=== PATIENT | female | born 1975 | race Caucasian/White ===

== ENCOUNTER → 2017-05-01 12:36 | Outpatient (CLI) | payer OTHER, SELFPAY ==
--- NOTE | 2017-05-01 12:39 | HPBI_ITS ---
MAMMOGRAPHY - BILATERAL SCREENING REASON FOR EXAM: Female, 42 years old. Routine annual screening examination. PERTINENT HISTORY: Non-contributory. TECHNIQUE: Digital bilateral breast jimbo (3D mammographic acquisition) in the CC and MLO projections. 2-D mediolateral oblique (MLO) and craniocaudad (CC) views of both breasts were obtained. CAD: Full Field Digital Mammography with Computer Added Detection was performed. COMPARISON: Comparison is made with prior outside examination dated February 03, 2016. FINDINGS: Breast Composition: The breasts are extremely dense, which lowers the sensitivity of mammography. There are no dominant masses or suspicious calcifications. No other significant abnormalities are identified. There has been no significant change since the prior study. HPBI/SCREENING MAMM (CAD), BILAT IMPRESSION: Stable bilateral screening mammogram. Yearly follow-up mammogram recommended. (A) ASSESSMENT CATEGORY: BIRADS Category 1: Negative. A letter regarding these results will be sent to the patient by the facility within 30 days. Approximately 10% of breast cancers are not detected by mammography. A normal mammogram should not delay biopsy of a clinically suspicious abnormality. [id number] Electronically Signed: Esteban Ashley MD at 13:43 EST Tel [phone], Service support ,
== END ==
PROVIDERS: Family Provider Internal Medicine; PCP Internal Medicine; Visit Provider Obstetrics & Gynecology
DX: Z12.31 Encounter for screening mammogram for malignant neoplasm of breast (principal)
CPT/HCPCS: 77063; 77067

== ENCOUNTER → 2017-06-20 14:58 | Outpatient (CLI) | payer OTHER, SELFPAY ==
--- NOTE | 2017-06-20 15:02 | US_ITS ---
STUDY: THYROID ULTRASOUND REASON FOR EXAM: Female, 42 years old. Thyromegaly. TECHNIQUE: Ultrasound evaluation of the thyroid was performed with real-time and static livingston-scale imaging. COMPARISON: Thyroid ultrasound November 01, 2015. FINDINGS: RIGHT LOBE: The right lobe of the thyroid gland measures 5.3 x 1.6 x 1.3 cm. There is a homogeneous echotexture. Again seen is a well-defined 7 x 7 x 5 mm hypoechoic cyst at the anterior midpole. LEFT LOBE: The left lobe of the thyroid gland measures 4.8 x 1.6 x 1.4 cm. There is a homogeneous echotexture. Again seen is a well-defined 9 x 6 x 6 mm hypoechoic cystic lesion with a focal eccentric calcification at the anterior upper pole. ISTHMUS: The isthmus measures 3.0 mm. The regional lymph nodes are normal. US/Thyroid IMPRESSION: Normal size thyroid gland with stable bilateral cysts, as described. Electronically Signed: William Coyle MD at 20:01 EDT , Service support ,
== END ==
PROVIDERS: Family Provider Internal Medicine; PCP Internal Medicine; Visit Provider Internal Medicine
DX: E01.0 Iodine-deficiency related diffuse (endemic) goiter (principal)
CPT/HCPCS: 76536

== ENCOUNTER → 2018-04-05 16:15 | Outpatient (CLI) | payer OTHER, SELFPAY ==
[2018-04-05 16:26] LABS: Absolute Lymphocyte Count 2.49 X10^3/ul (0.83-4.51); Absolute Neutrophil Count 3.1 X10^3/uL (2.0-7.7); Basophil# 0.01 X10^3/uL; Basophil% 0.2 % (0-1); Eosinophil# 0.06 X10^3/uL; Hematocrit 38.2 % (37-47); Hemoglobin 13.2 g/dl (12.0-15.0); Lymphocyte # 2.49 X10^3/ul (4.0); Lymphocyte % 41.3 % (19-41); Mean Corp Hgb Conc 34.6 g/gl (32-36); Mean Corpuscular Hgb 31.7 pg (27.0-32.0); Mean Corpuscular Volume 91.6 fL (81-99); Mean Platelet Vol. 9.7 fl (6.2-12.0); Monocyte# 0.41 X10^3/uL; Monocyte% 6.8 % (0-10); Neutrophil # 3.05 X10^3/uL (2.7-7.7); Neutrophil % 50.5 % (47-70); Platelet Count 338 K/mm3 (150-450); RBC Distribution Width CV 12.8 % (11.6-14.6); RBC Distribution Width SD 42.4 fl (35.1-43.9); Red Blood Count 4.17 M/mm3 (4.2-5.4)
[2018-04-05 16:27] LABS: POSITIVE COUNT NO; POSITIVE DIFFERENTIAL NO; POSITIVE MORPHOLOGY NO
[2018-04-05 16:46] LABS: D-Dimer Quantitative (DVT/PE) 1.09 FEU/ug/m (0.27-0.49)
[2018-04-05 16:47] LABS: ALB/GLOB Ratio 1.4 RATIO (0.9-2.4); AST(SGOT) 29 U/L (15-37); Alanine Aminotransfer ALT/SGPT 27 U/L (13-56); Albumin, Serum 4.2 g/dL (3.2-5.0); Alkaline Phosphatase 73 U/L (45-117); Anion Gap 8 (5-15); BUN 14 mg/dL (7-18); BUN/Creat Ratio 18.2 RATIO (10-20); Calcium,Total 8.8 mg/dL (8.5-10.1); Chloride 105 mmol/L (98-107); Creatinine, Serum 0.77 mg/dL (0.55-1.02); EST Glomerular Filtration Rate 88 mL/min (>60); Est Glom Filt Rate - Afr Amer 106 mL/min (>60); Globulin 3.1 g/dL (2.2-4.2); Glucose 86 mg/dL (74-106); Protein, Total 7.3 g/dL (6.4-8.2); Sodium Level 140 mmol/L (136-145); Thyroid Stim Hormone (TSH) 1.21 uIU/mL (0.358-3.74)
--- OUTSIDE RECORDS SUMMARY | 2018-06-10 07:32 | XMS RPT_ITS | Continuity of Care Document ---
:1975 Author Organization [facility] Address [address] [place] [address] Phone Care Team Providers Name Role Phone Nette Snow DO Unavailable JesusRosana yin Unavailable Unavailable Unavailable Unavailable Problems Name Dates Details Abnormal blood chemistry (R79.9, 790.6) Comments: hypercalcemia Status: Active Acute pain of right knee (M25.561, 719.46) Status: Active Acute sinusitis (J01.90, 461.9) Status: Active Allergic rhinitis (J30.9, 477.9) Status: Active Anxiety (F41.9, 300.00) Status: Active BMI 29.0-29.9,adult (Z68.29, V85.25) Status: Active Section Status: Active Chest congestion (R09.89, 786.9) Status: Active Chest congestion (R09.89, 786.9) Status: Active Cholecystectomy Comments: 01-08-09 Status: Active 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.4) Status: Active Deliveries (Parity) Comments: twins Status: Active Diarrhea (R19.7, 787.91) Status: Active Eustachian tube dysfunction (H69.80, 381.81) Status: Active FAMILY HISTORY OF DIABETES MELLITUS (Z83.3, V18.0) Status: Active Family history of ischemic heart disease (Z82.49, V17.3) Status: Active Gastroenteritis (009.0) (Renamed from Infectious gastroenteritis) (A09, 009.0) Status: Active Gastroesophageal reflux disease without esophagitis (K21.9, 530.81) Comments: chronic stable-continue present regimen Status: Active Headache (R51, 784.0) Status: Active Hyperlipidemia (E78.5, 272.4) Status: Active Impaired fasting glucose (R73.01, 790.21) Status: Active [facility] EX[facility] Status: Active [facility] EX[facility] Status: Active Need for prophylactic vaccination and inoculation against influenza (Z23, V04.81) Status: Active Non-smoker (Z78.9, V49.89) Status: Active Other and unspecified coagulation defects (D68.9, 286.9) Status: Active Physical exam, routine (Renamed from Encounter for routine history and physical examination) (Z00.00, V70.0) Status: Active Post-nasal drainage (R09.82, 473.9) Status: Active Pregnancies () Comments: 1 Status: Active Prothrombin gene mutation (D68.59, 289.81) Status: Active SCREENING Status: Active Shortness of breath (R06.02, 786.05) Comments: ended up ddimer was positive so had cta of chest pe neg Status: Active Sleep disorder (G47.9, 780.50) Status: Active SOB (shortness of breath) (R06.02, 786.05) Status: Active Thrombophilia Status: Active 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, 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 Tonsillectomy Status: Active Medications Name Dates Details Fluticasone Propionate 50 MCG/ACT Nasal Suspension 2 (two) Puff daily for 0 days Quantity: 1 {Inhaler} Refills: 5 Ordered:31-Dec-2017 Fast DORadhaa AFNette hay DO A Start : 31-Dec-2017 Active PredniSONE 10 MG Oral Tablet 3 (three) Tablet in am for 3 days 2 in am for 3 days 1in am for 3 days for 0 days Quantity: 18 {Tablet} Refills: 0 Ordered:05-Apr-2018 Fast DO, Nette AFast DORadhaa A Start : 05-Apr-2018 Active ANTIVERT, 12.5MG (Oral Tablet) 1 Tablet q8hrs prn for 0 days Quantity: 30 {Tablet} Refills: 0 Ordered:28-Apr-2011 Kennedi Jim Start : 08-Jul-2010 End : 28-Apr-2011 Inactive Augmentin 875-125 MG Oral Tablet 1 Tablet BID x 14 days for 0 days Quantity: 28 {Tablet} Refills: 0 Ordered:29-Aug-2017 Rosana Beasley Start : 20-Aug-2017 End : 29-Aug-2017 Inactive Comments:Take with food Belsomra 15 MG Oral Tablet 1 (one) Tablet qd for 0 days Quantity: 30 {Tablet} Refills: 3 Ordered:29-Oct-2015 Rylee Díaz Start : 17-Sep-2015 End : 29-Oct-2015 Inactive BIAXIN XL, 500MG (Oral Tablet Extended Release 24 Hour) 2 (two) Tablet ER 24HR qam with food for 0 days Quantity: 20 {Tablet_ER_24HR} Refills: 0 Ordered:05-Mar-2012 MEAGHAN Kapoor Start : 09-Jan-2012 End : 05-Mar-2012 Inactive CHERATUSSIN AC, 100-10MG/5ML (Oral Syrup) 10 cc Syrup qhs prn for 0 days Quantity: 120 {Milliliter} Refills: 0 Ordered:05-Mar-2012 MEAGHAN Kapoor Start : 09-Jan-2012 End : 05-Mar-2012 Inactive Comments:one hundred twenty CYMBALTA, 30MG (Oral Capsule Delayed Release Particles) [address] Part qd for 0 days Quantity: 30 {Capsule_DR_Part} Refills: 3 Ordered:28-Apr-2011 Kennedi Jim Start : 11-Oct-2010 End : 28-Apr-2011 Inactive DIFLUCAN, 100MG (Oral Tablet) 1 Tablet qd x 1 for 0 days Quantity: 1 {Tablet} Refills: 0 Ordered:06-Jul-2011 MEAGHAN Kapoor Start : 28-Apr-2011 End : 06-Jul-2011 Inactive DULoxetine HCl 30 MG Oral Capsule Delayed Release Particles 1 (one) Capsule DR Part Capsule DR Part qd for 0 days Quantity: 30 {Capsule} Refills: 3 Ordered:29-Oct-2015 Rylee Díaz Start : 04-Jun-2015 End : 29-Oct-2015 Inactive Fexofenadine HCl 60 MG Oral Tablet 1 (one) Tablet Tablet bid for 0 days Quantity: 60 {Tablet} Refills: 0 Ordered:29-Aug-2017 Rosana Beasley Start : 29-Jul-2013 End : 29-Aug-2017 Inactive FLEXERIL, 10MG (Oral Tablet) 1 Tablet q 8 hours prn for 0 days Quantity: 30 {Tablet} Refills: 0 Ordered:05-Mar-2012 MEAGHAN Kapoor Start : 06-Jul-2011 End : 05-Mar-2012 Inactive LOVENOX, 40MG/0.4ML (Subcutaneous Solution) 1 Solution QD for 0 days Quantity: 6 {Solution} Refills: 0 Ordered:29-Jul-2013 Shameka Cooper LPN Start : 10-Sep-2012 End : 29-Jul-2013 Inactive PEPCID, 20MG (Oral Tablet) 1 (one) Tablet qhs / HS for 0 days Quantity: 30 {Tablet} Refills: 3 Ordered:08-Jul-2010 Shameka Cooper LPN Start : 25-Aug-2008 End : 08-Jul-2010 Inactive PREVACID 24HR, 15MG (Oral Capsule Delayed Release) 1 cap prn (15 MG) Inactive Xarelto 20 MG Oral Tablet 1 (one) Tablet as we discussed for 0 days Quantity: 20 {Tablet} Refills: 0 Ordered:05-Apr-2018 Rosana Beasley Start : 04-Jun-2017 End : 05-Apr-2018 Inactive ZEGERID, 40-1100MG (Oral Capsule) Capsule QD for 0 days Quantity: 30 {Capsule} Refills: 6 Ordered:08-Jul-2010 Shameka Cooper LPN Start : 25-Aug-2008 End : 08-Jul-2010 Inactive ZETONNA, 37MCG/ACT (Nasal Aerosol Solution) 1 Aerosol Soln each nostril qd for 0 days Quantity: 1 {Aerosol_Soln} Refills: 0 Ordered:29-Jul-2013 Shameka Cooper LPN Start : 05-Apr-2012 End : 29-Jul-2013 Inactive ZITHROMAX TRI-NATASHA, 500MG (Oral Tablet) uad Tablet as directed for 0 days Quantity: 1 {Packet} Refills: 0 Ordered:28-Apr-2011 Kennedi Jim Start : 17-Nov-2010 End : 28-Apr-2011 Inactive DIFLUCAN, 150MG (Oral Tablet) uad Tablet one today and may repeat in 2 days if needed for 0 days Quantity: 2 {Tablet} Refills: 0 Ordered:04-Jun-2015 Kennedi Jim Start : 29-May-2014 End : 04-Jun-2015 Discontinued FLONASE, 50MCG/ACT (Nasal Suspension) 2 (two) Puff(s) Puff(s) daily for 0 days Quantity: 1 {Cartridge} Refills: 3 Ordered:22-May-2014 Kennedi Jim Start : 29-Jul-2013 End : 22-May-2014 Discontinued MetFORMIN HCl 500 MG Oral Tablet 1 (one) Tablet Tablet qd with largest meal for 0 days Quantity: 30 {Tablet} Refills: 3 Ordered:04-Jun-2017 Karissa Reyez Start : 18-Nov-2015 End : 04-Jun-2017 Discontinued NEXIUM, 20MG (Oral Packet) Packet QD for 0 days Refills: 0 Ordered:06-Jul-2008 Mayuri Esquivel MD Start : 06-Jul-2008 End : 06-Jul-2008 Discontinued Allergies and Adverse Reactions Name Dates Details NKDA (Allergy) Status: Active No Known Drug Allergies (Allergy) Onset: 05-Apr-2018 Status: Active Past Medical History Name Dates Details Abdominal pain, acute, right lower quadrant (R10.31, 789.03) Comments: LMP Oct 3 Status: Resolved as of 22-May-2014 BMI 28.0-28.9,adult (Z68.28, V85.24) Status: Inactive as of 05-Apr-2018 Bronchitis, acute (J20.9, 466.0) Status: Resolved as of 22-May-2014 Valery vaginitis (112.1) Status: Resolved as of 22-May-2014 Cough (R05, 786.2) Status: Resolved as of 22-May-2014 Dehydration (E86.0, 276.51) Status: Resolved as of 22-May-2014 GESTATIONAL DIABETES MELLITUS, NOS (648.80) Status: Resolved as of 22-May-2014 Itchy eyes (H57.8, 379.99) Status: Resolved as of 22-May-2014 Otalgia, unspecified ear (H92.09, 388.70) Status: Resolved as of 22-May-2014 Other specified conditions associated with female genital organs and menstrual cycle (N94.89, 629.89) Status: Inactive as of 28-Sep-2008 Pharyngitis, acute (J02.9, 462) Status: Resolved as of 22-May-2014 Unspecified Diagnosis Status: Inactive as of 22-May-2014 Unspecified Diagnosis Status: Inactive as of 22-May-2014 Unspecified Diagnosis Status: Inactive as of 22-May-2014 Unspecified Diagnosis Status: Inactive as of 22-May-2014 Vertigo (R42, 780.4) Comments: add tilt testhad in past as college student Status: Resolved as of 22-May-2014 Procedures Procedure Dates Details Cholecystectomy Completed Hysterectomy; Abdominal Completed Comments: PARTIAL - VARICOSE VEINS AND ADENOMYOSIS- 2012 Tonsillectomy Completed Date Value Details 05-Apr-2018 CTA Chest W/WO Contrast Result: Comments: See Note; NOTES: [facility] Imaging Services [address] [place] [address] CTA Chest W/WO Contrast MR#: [id number] Acct: [id number] Name: KYLE FARMER Rep #: [id number] : 1975 F 42 From: Amilcar Mann DO PCP: Nette Snow DO Status: REG CLI Study: CTA Chest W/WO Contrast Date of Exam: 04/05/18 Exam# [id number] Ordering Dr: Mayuri Esquivel MD STUDY: CTA CHEST RE ASON FOR EXAM: Female, 42 years old. Shortness of breath, elevated d-dimer RADIATION DOSAGE (If Supplied By Facility): CTDIvol = ( 9.63 ) mGy, DLP = ( 477.07 ) mGycm TECHNIQUE: The examination was per formed with the intravenous administration of 100ML ml of Isovue 370 contrast material. Post-processing of the angiographic images was performed, with multiplanar reformation and 3D reconstruction. Ind ividualized dose optimization techniques were used for this CT. COMPARISON: None. FINDINGS: Normal enhancement of the main pulmonary artery and right and left pulm onary arteries. Normal enhancement of the bilateral peripheral pulmonary arteries. There is no demonstrated pulmonary embolism. Normal thoracic aorta and visualized great vessels. There is no demonstr ated aortic dissection. Normal heart and pericardium. Normal mediastinum. Normal hilar regions. Normal visualized trachea and bronchi. The lungs are well expanded. Normal pulmonary parenchyma. Norm al pleura. Normal chest wall structures. Normal osseous structures. Normal visualized upper abdomen. 0040 CT/CTA Chest W/WO Contrast IMPRESSION: No rmal CTA chest examination, without a demonstrated pulmonary embolism or arterial dissection. Electronically Signed: Amilcar Mann DO at 21:09 EST Tel [phone], Service support , CC: Mayuri Esquivel MD; Nette Snow DO Emt I/99: Signed 05-Apr-2018 CTA Chest W/WO Contrast Result: Comments: See Note; NOTES: [facility] Imaging Services [address] [place] [address] CTA Chest W/WO Contrast MR#: [id number] Acct: [id number] Name: KYLE FARMER Rep #: [id number] : 1975 F 42 From: Amilcar Mann DO PCP: Nette Snow DO Status: REG CLI Study: CTA Chest W/WO Contrast Date of Exam: 04/05/18 Exam# [id number] Ordering Dr: Mayuri Esquivel MD STUDY: CTA CHEST RE ASON FOR EXAM: Female, 42 years old. Shortness of breath, elevated d-dimer RADIATION DOSAGE (If Supplied By Facility): CTDIvol = ( 9.63 ) mGy, DLP = ( 477.07 ) mGycm TECHNIQUE: The examination was per formed with the intravenous administration of 100ML ml of Isovue 370 contrast material. Post-processing of the angiographic images was performed, with multiplanar reformation and 3D reconstruction. Ind ividualized dose optimization techniques were used for this CT. COMPARISON: None. FINDINGS: Normal enhancement of the main pulmonary artery and right and left pulm onary arteries. Normal enhancement of the bilateral peripheral pulmonary arteries. There is no demonstrated pulmonary embolism. Normal thoracic aorta and visualized great vessels. There is no demonstr ated aortic dissection. Normal heart and pericardium. Normal mediastinum. Normal hilar regions. Normal visualized trachea and bronchi. The lungs are well expanded. Normal pulmonary parenchyma. Norm al pleura. Normal chest wall structures. Normal osseous structures. Normal visualized upper abdomen. 0040 CT/CTA Chest W/WO Contrast IMPRESSION: No rmal CTA chest examination, without a demonstrated pulmonary embolism or arterial dissection. Electronically Signed: Amilcar Mann DO at 21:09 EST Tel [phone], Service support , CC: Mayuri Esquivel MD; Nette Snow DO Emt I/99: Signed 20-Jun-2017 Thyroid Result: Comments: See Note; NOTES: [facility] Imaging Services [address] [place] [address] Thyroid MR#: [id number] Acct: [id number] Name: KYLE FARMER Rep #: [id number] : [birth year] F 42 From: Shahid Coyle MD PCP: Nette Snow DO Status: REG CLI Study: Thyroid Date of Exam: 06/20/17 Exam# [id number] Ordering Dr: Nette Snow DO STUDY: THYROID ULTRASOUND REASON FOR EXAM: Fembulmaro jackson, 42 years old. Thyromegaly. TECHNIQUE: Ultrasound evaluation of the thyroid was performed with real-time and static livingston-scale imaging. COMPARISON: Thyroid ultrasound November 01, 2015. FINDINGS: RIGHT LOBE: The right lobe of the thyroid gland measures 5.3 x 1.6 x 1.3 cm. There is a homogeneous echotexture. Again seen is a well-defined 7 x 7 x 5 mm hypoechoic c yst at the anterior midpole. LEFT LOBE: The left lobe of the thyroid gland measures 4.8 x 1.6 x 1.4 cm. There is a homogeneous echotexture. Again seen is a well- defined 9 x 6 x 6 mm hypoechoic cystic l esion with a focal eccentric calcification at the anterior upper pole. ISTHMUS: The isthmus measures 3.0 mm. The regional lymph nodes are normal. 012 US/Thyroid IMPRESSION: Normal size thyroid gland with stable bilateral cysts, as described. Electronically Signed: William Coyle MD at 20:01 EDT , Service support , CC: Nette Snow DO Emt I/99: Signed 01-May-2017 SCREENING MAMM (CAD), BILAT Result: Comments: See Note; NOTES: [facility] Imaging Services [address] [place] [address] SCREENING MAMM (CAD), BILAT MR#: [id number] Acct: [id number] Name: KYLE FARMER Rep #: [id number] : 1975 F 42 From: Esteban Ashley MD PCP: Nette Snow DO Status: REG CLI Study: SCREENING MAMM (CAD), BILAT Date of Exam: 05/01/17 Exam# [id number] Ordering Dr: Zayra Virk MD MAMMOGRAPHY - BILATERAL SCREENING REASON FOR EXAM: Female, 42 years old. Routine annual screening examination. PERTINENT HISTORY: Non-contributory. TECHNIQUE: Digital bilateral breast jimbo (3D m ammographic acquisition) in the CC and MLO projections. 2-D mediolateral oblique (MLO) and craniocaudad (CC) views of both breasts were obtained. CAD: Full Field Digital Mammography with Computer Added Detection was performed. COMPARISON: Comparison is made with prior outside examination dated February 03, 2016. FINDINGS: Breast Composition: The breasts are extrem edward dense, which lowers the sensitivity of mammography. There are no dominant masses or suspicious calcifications. No other significant abnormalities are identified. There has been no significant mcdonough ge since the prior study. 0025 HPBI/SCREENING MAMM (CAD), BILAT IMPRESSION: Stable bilateral screening mammogram. Yearly follow-up mammogram recommend ed. (A) ASSESSMENT CATEGORY: BIRADS Category 1: Negative. A letter regarding these results will be sent to the patient by the facility within 30 days. Approximatel y 10% of breast cancers are not detected by mammography. A normal mammogram should not delay biopsy of a clinically suspicious abnormality. [id number] Electronically Signed: Esteban Ashley MD at 13:43 EST Tel [phone], Service support , CC: Nette Snow DO; Zayra Virk MD Emt I/99: Signed 01-Nov-2015 Thyroid Result: Comments: See Note; NOTES: [facility] Imaging Services [address] [place] [address] Verdana 4d Thyroid MR#: [id number] Acct: [id number] Name: KYLE FARMER Rep #: [id number] : 1975 F 40 From: Eduardo Aldana DO PCP: Nette Snow DO Status: REG CLI Study: Thyroid Date of Exam: 11/01/15 Exam# [id number] Ordering Dr: Nette Snow DO STUDY: THYROID ULTRASOUND REASON FOR EXAM: Female, 40 years old. Thyromegaly TECHNIQUE: Ultrasound evaluation of the thyroid was performed with real-time and static livingston-scale imaging. COMPARISON: None. __ FINDINGS: RIGHT LOBE: The right lobe of the thyroid gland measures 4.7 x 1.5 x 1.5 cm. There is a homogeneous echotexture. A single midpole anechoic cyst measuring less than 1 cm. LEFT LOBE: The l eft lobe of the thyroid gland measures 5.3 x 1.6 x 1.6 cm. There is a homogeneous echotexture. Upper pole nodule measuring 8 x 5 x 5 mm which is predominantly cystic. There appears to be a subjacent lym ph node measuring 1.2 x 0.9 x 0.4 cm. ISTHMUS: The isthmus measures 2 mm. The regional lymph nodes are normal. US/Thyroid IMPRESSION: Homogen ous thyroid appearance throughout with normal size. Bilateral subcentimeter hypoechoic cysts. Electronically Signed: Eduardo Aldana DO at 20:22 EDT Tel , Service support [phone], CC: Nette Snow DO Emt I/99: Signed 29-Oct-2015 ELECTROCARDIOGRAM, COMPLETE (ECG) (65100) Comments: ekg showed normal sinus rhythym, normal axis, no acute st/t wave changes- sinus marco Result: [MEASUREMENTS ANALYSIS] Date of Test: 10/29/2015 11:03:47; Heart Rate: 58; IN Interval: 168; QRS: 104; QT Interval: 416; Corrected QT Interval (QTc): 413; P Wave Nottingham: 56; QRS Wave Nottingham: 30; T Wave Nottingham : 26; Blood Pressure: 102/62 [ECG DIAGNOSTIC STATEMENTS] Date of Test: 10/29/2015 11:03:47; Summary: Sinus Bradycardia -RSR(V1) -nondiagnostic. PROBABLY NORMAL Family History Unknown Family Member Name Dates Details Father Comments: Thrombocytophelia, HTN, Hypercholesterolemia, [place] age 49 , in good stable health now- CABG AT 65/ DM Status: Active Maternal Grandfather Comments: Heart/lung dx Status: Active Mother Comments: LIVING AND HTN AND HIGH CHOL AND CAROTID STENOSIS Status: Active Paternal Grandfather Comments: Diabetes Status: Active Social History Name Dates Details Alcohol Use Comments: Occasional alcohol use Status: Active Caffeine Use Comments: 5 coffe, tea, cola QD Status: Active Current Work/Study Status Comments: Full-time Status: Active Living Situation Comments: Lives with spouse Status: Active 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 Status: Active Smoking Status Name Dates Details Never smoker Vital Signs Date Test Result Details [id number] Temperature 98.1 f Comments: Method: Temporal Pulse 72 /min Comments: Pattern: Regular Respiration Rate 16 /min Comments: Pattern: Unlabored O2 SAT 97 % Comments: Room air BP Systolic 108 mm[Hg] Comments: Patient Position: Sitting BP Diastolic 62 mm[Hg] Comments: Patient Position: Sitting Weight 165.375 lb Height 62.75 in Body Mass Index Calculated 29.53 kg/m2 Body Surface Area Calculated 1.78 m2 :23 Temperature 98.2 f Comments: Method: Temporal Pulse 80 /min Comments: Pattern: Regular Respiration Rate 16 /min Comments: Pattern: Unlabored BP Systolic 100 mm[Hg] Comments: Patient Position: Sitting; Cuff Location: Left Arm; Cuff Size: Standard BP Diastolic 60 mm[Hg] Comments: Patient Position: Sitting; Cuff Location: Left Arm; Cuff Size: Standard Weight 165.375 lb Height 62.75 in Body Mass Index Calculated 29.53 kg/m2 Body Surface Area Calculated 1.78 m2 :34 Temperature 98.1 f Comments: Method: Temporal Pulse 70 /min Comments: Pattern: Regular Respiration Rate 16 /min Comments: Pattern: Unlabored O2 SAT 97 % Comments: Room air BP Systolic 115 mm[Hg] Comments: Patient Position: Sitting; Cuff Location: Left Arm; Cuff Size: Standard BP Diastolic 70 mm[Hg] Comments: Patient Position: Sitting; Cuff Location: Left Arm; Cuff Size: Standard Weight 163.375 lb Height 62.75 in Body Mass Index Calculated 29.17 kg/m2 Body Surface Area Calculated 1.77 m2 :11 Temperature 98.3 f Comments: Method: Oral Pulse 67 /min Comments: Pattern: Regular Respiration Rate 17 /min Comments: Pattern: Unlabored O2 SAT 97 % Comments: Room air BP Systolic 132 mm[Hg] Comments: Patient Position: Sitting; Cuff Location: Left Arm; Cuff Size: Standard BP Diastolic 84 mm[Hg] Comments: Patient Position: Sitting; Cuff Location: Left Arm; Cuff Size: Standard Weight 163.375 lb Height 62.75 in Body Mass Index Calculated 29.17 kg/m2 Body Surface Area Calculated 1.77 m2 :28 Temperature 98.2 f Comments: Method: Temporal Pulse 68 /min Comments: Pattern: Regular Respiration Rate 16 /min Comments: Pattern: Unlabored O2 SAT 97 % Comments: Room air BP Systolic 108 mm[Hg] Comments: Patient Position: Sitting; Cuff Location: Left Arm; Cuff Size: Standard BP Diastolic 64 mm[Hg] Comments: Patient Position: Sitting; Cuff Location: Left Arm; Cuff Size: Standard Weight 158 lb Height 62.75 in Body Mass Index Calculated 28.21 kg/m2 Body Surface Area Calculated 1.74 m2 :26 Temperature 97.3 f Comments: Method: Tympanic Pulse 68 /min Comments: Pattern: Regular Respiration Rate 18 /min Comments: Pattern: Unlabored O2 SAT 99 % Comments: Room air BP Systolic 102 mm[Hg] Comments: Patient Position: Sitting; Cuff Location: Left Arm; Cuff Size: Standard BP Diastolic 62 mm[Hg] Comments: Patient Position: Sitting; Cuff Location: Left Arm; Cuff Size: Standard Weight 166.125 lb Height 62.75 in Body Mass Index Calculated 29.66 kg/m2 Body Surface Area Calculated 1.78 m2 :48 Temperature 97.8 f Comments: Method: Oral Pulse 76 /min Comments: Pattern: Regular Respiration Rate 15 /min Comments: Pattern: Unlabored O2 SAT 97 % Comments: Room air BP Systolic 112 mm[Hg] Comments: Patient Position: Sitting; Cuff Location: Left Arm; Cuff Size: Large BP Diastolic 88 mm[Hg] Comments: Patient Position: Sitting; Cuff Location: Left Arm; Cuff Size: Large Weight 166 lb Height 62.75 in Body Mass Index Calculated 29.64 kg/m2 Body Surface Area Calculated 1.78 m2 :50 Temperature 98.4 f Comments: Method: Temporal Pulse 58 /min Comments: Pattern: Regular Respiration Rate 15 /min Comments: Pattern: Unlabored O2 SAT 97 % Comments: Room air BP Systolic 104 mm[Hg] Comments: Patient Position: Sitting; Cuff Location: Left Arm; Cuff Size: Large BP Diastolic 62 mm[Hg] Comments: Patient Position: Sitting; Cuff Location: Left Arm; Cuff Size: Large Weight 164 lb Height 62.75 in Body Mass Index Calculated 29.28 kg/m2 Body Surface Area Calculated 1.77 m2 :29 Temperature 97.2 f Pulse 72 /min Comments: Pattern: Regular Respiration Rate 16 /min Comments: Pattern: Unlabored BP Systolic 122 mm[Hg] Comments: Patient Position: Sitting; Cuff Location: Left Arm; Cuff Size: Large BP Diastolic 82 mm[Hg] Comments: Patient Position: Sitting; Cuff Location: Left Arm; Cuff Size: Large Weight 161 lb Height 62.75 in Body Mass Index Calculated 28.75 kg/m2 Body Surface Area Calculated 1.76 m2 :13 Temperature 98 f Comments: Method: Oral Pulse 72 /min Comments: Pattern: Regular Respiration Rate 16 /min O2 SAT 99 % Comments: Room air BP Systolic 104 mm[Hg] Comments: Patient Position: Sitting; Cuff Location: Left Arm; Cuff Size: Standard BP Diastolic 70 mm[Hg] Comments: Patient Position: Sitting; Cuff Location: Left Arm; Cuff Size: Standard Weight 158.375 lb Height 62 in Body Mass Index Calculated 28.97 kg/m2 Body Surface Area Calculated 1.73 m2 :12 Pulse 68 /min Comments: Pattern: Regular Respiration Rate 15 /min O2 SAT 97 % Comments: Room air BP Systolic 108 mm[Hg] Comments: Patient Position: Sitting; Cuff Location: Left Arm; Cuff Size: Standard BP Diastolic 68 mm[Hg] Comments: Patient Position: Sitting; Cuff Location: Left Arm; Cuff Size: Standard :54 Temperature 98 f Comments: Method: Oral Pulse 60 /min Comments: Pattern: Regular Respiration Rate 16 /min Comments: Pattern: Unlabored BP Systolic 110 mm[Hg] Comments: Patient Position: Sitting; Cuff Location: Left Arm; Cuff Size: Standard BP Diastolic 78 mm[Hg] Comments: Patient Position: Sitting; Cuff Location: Left Arm; Cuff Size: Standard Weight 149.5 lb Height 62.5 in Body Mass Index Calculated 26.91 kg/m2 Body Surface Area Calculated 1.7 m2 :15 Temperature 98.4 f Pulse 68 /min Comments: Pattern: Regular Respiration Rate 16 /min Comments: Pattern: Unlabored BP Systolic 100 mm[Hg] Comments: Patient Position: Sitting; Cuff Location: Left Arm; Cuff Size: Large BP Diastolic 60 mm[Hg] Comments: Patient Position: Sitting; Cuff Location: Left Arm; Cuff Size: Large Weight 151 lb Height 62.5 in Body Mass Index Calculated 27.18 kg/m2 Body Surface Area Calculated 1.71 m2 :35 Comments: after 2 L of NS102/60 pulse 7096/58 pulse 80 Respiration Rate 72 /min Comments: Pattern: Unlabored BP Systolic 102 mm[Hg] Comments: Patient Position: Supine; Cuff Location: Left Arm; Cuff Size: Standard BP Diastolic 64 mm[Hg] Comments: Patient Position: Supine; Cuff Location: Left Arm; Cuff Size: Standard :40 Comments: repeat vitals after 1 liter of NS102/60 pulse 19456/60 pulse 80 BP Systolic 118 mm[Hg] Comments: Patient Position: Supine; Cuff Location: Left Arm; Cuff Size: Standard BP Diastolic 60 mm[Hg] Comments: Patient Position: Supine; Cuff Location: Left Arm; Cuff Size: Standard :24 Comments: 102/60 pulse 100 /64 pulse 110 standing Pulse 88 /min Comments: Pattern: Regular BP Systolic 88 mm[Hg] Comments: Patient Position: Supine; Cuff Location: Left Arm; Cuff Size: Standard BP Diastolic 60 mm[Hg] Comments: Patient Position: Supine; Cuff Location: Left Arm; Cuff Size: Standard :10 Temperature 97.1 f Pulse 108 /min Comments: Pattern: Regular Respiration Rate 18 /min Comments: Pattern: Unlabored BP Systolic 92 mm[Hg] Comments: Patient Position: Sitting; Cuff Location: Left Arm; Cuff Size: Large BP Diastolic 68 mm[Hg] Comments: Patient Position: Sitting; Cuff Location: Left Arm; Cuff Size: Large Weight 137 lb Height 62.5 in Body Mass Index Calculated 24.66 kg/m2 Body Surface Area Calculated 1.64 m2 :06 Temperature 97.6 f Pulse 56 /min Comments: Pattern: Regular Respiration Rate 16 /min Comments: Pattern: Unlabored BP Systolic 118 mm[Hg] Comments: Patient Position: Sitting; Cuff Location: Left Arm; Cuff Size: Standard BP Diastolic 72 mm[Hg] Comments: Patient Position: Sitting; Cuff Location: Left Arm; Cuff Size: Standard Weight 145 lb Height 62.5 in Body Mass Index Calculated 26.1 kg/m2 Body Surface Area Calculated 1.68 m2 :16 Temperature 98.5 f Comments: Method: Oral Pulse 76 /min Comments: Pattern: Regular Respiration Rate 16 /min Comments: Pattern: Unlabored BP Systolic 132 mm[Hg] Comments: Patient Position: Sitting; Cuff Location: Left Arm; Cuff Size: Standard BP Diastolic 78 mm[Hg] Comments: Patient Position: Sitting; Cuff Location: Left Arm; Cuff Size: Standard Weight 145 lb Height 62 in Body Mass Index Calculated 26.52 kg/m2 Body Surface Area Calculated 1.67 m2 :10 Temperature 96.7 f Comments: Method: Oral Pulse 74 /min Comments: Pattern: Regular Respiration Rate 16 /min Comments: Pattern: Unlabored BP Systolic 102 mm[Hg] Comments: Patient Position: Sitting; Cuff Location: Left Arm; Cuff Size: Standard BP Diastolic 70 mm[Hg] Comments: Patient Position: Sitting; Cuff Location: Left Arm; Cuff Size: Standard Weight 145 lb Height 62 in Body Mass Index Calculated 26.52 kg/m2 Body Surface Area Calculated 1.67 m2 :13 Temperature 98.3 f Comments: Method: Oral Pulse 72 /min Comments: Pattern: Regular Respiration Rate 16 /min Comments: Pattern: Unlabored BP Systolic 92 mm[Hg] Comments: Patient Position: Supine; Cuff Location: Left Arm; Cuff Size: Standard BP Diastolic 64 mm[Hg] Comments: Patient Position: Supine; Cuff Location: Left Arm; Cuff Size: Standard Weight 145 lb Height 62 in Body Mass Index Calculated 26.52 kg/m2 Body Surface Area Calculated 1.67 m2 Head Circumference 0.00 cm :03 Pulse 60 /min Comments: Pattern: Regular Respiration Rate 16 /min Comments: Pattern: Unlabored BP Systolic 94 mm[Hg] Comments: Patient Position: Supine; Cuff Location: Left Arm; Cuff Size: Standard BP Diastolic 60 mm[Hg] Comments: Patient Position: Supine; Cuff Location: Left Arm; Cuff Size: Standard Weight 156.0625 lb Height 62 in Body Mass Index Calculated 28.54 kg/m2 Body Surface Area Calculated 1.72 m2 Head Circumference 0.00 cm :13 Pulse 60 /min Comments: Pattern: Regular Respiration Rate 16 /min Comments: Pattern: Unlabored BP Systolic 114 mm[Hg] Comments: Patient Position: Supine; Cuff Location: Left Arm; Cuff Size: Standard BP Diastolic 64 mm[Hg] Comments: Patient Position: Supine; Cuff Location: Left Arm; Cuff Size: Standard Weight 156.0625 lb Height 62 in Body Mass Index Calculated 28.54 kg/m2 Body Surface Area Calculated 1.72 m2 Head Circumference 0.00 cm Results Date Description Value Details :04 CBC W/Diff, Automated Comments: [facility] [address] [place], [place], [id number] Absolute Lymph 2.49 {X10_3/ul} (Normal) Range: 0.83-4.51 Absolute Neut 3.1 {X10_3/uL} (Normal) Range: 2.0-7.7 IM GRAN % 0.200 % (Normal) Range: 0.0-0.9 Comments: IG% - Immature Granulocytes (promyelocytes, myelocytes andmetamyelocytes) > 1% indicates that a LEFT SHIFT is Present. BASO% 0.2 % (Normal) Range: 0-1 EO% 1.0 % (Normal) Range: 0-5 MONO% 6.8 % (Normal) Range: 0-10 LY% 41.3 % (Abnormal) Range: 19-41 NEUT% 50.5 % (Normal) Range: 47-70 MPV 9.7 fL (Normal) Range: 6.2-12.0 PLT 338 K/mm3 (Normal) Range: 150-450 RDW SD 42.4 fL (Normal) Range: 35.1-43.9 RDW CV 12.8 % (Normal) Range: 11.6-14.6 MCHC 34.6 {g/gl} (Normal) Range: 32-36 MCH 31.7 pg (Normal) Range: 27.0-32.0 MCV 91.6 fL (Normal) Range: 81-99 HCT 38.2 % (Normal) Range: 37-47 HGB 13.2 g/dL (Normal) Range: 12.0-15.0 RBC 4.17 {M/mm3} (Abnormal) Range: 4.2-5.4 WBC 6.0 K/mm3 (Normal) Range: 4.4-11.0 :04 Comprehensive Metabolic Profil Comments: [facility] [address] [place], [place], [id number] GAP 8 (Normal) Range: 5-15 CO2 27.0 mmol/L (Normal) Range: 21.0-32.0 CL 105 mmol/L (Normal) Range: 98-107 K 4.0 mmol/L (Normal) Range: 3.5-5.1 NA 140 mmol/L (Normal) Range: 136-145 T BILI 0.50 mg/dL (Normal) Range: 0.20-1.00 ALT 27 U/L (Normal) Range: 13-56 ALK P 73 U/L (Normal) Range: 45-117 AST 29 U/L (Normal) Range: 15-37 CA 8.8 mg/dL (Normal) Range: 8.5-10.1 A/G 1.4 {RATIO} (Normal) Range: 0.9-2.4 GLOB 3.1 g/dL (Normal) Range: 2.2-4.2 ALB 4.2 g/dL (Normal) Range: 3.2-5.0 T PROT 7.3 g/dL (Normal) Range: 6.4-8.2 BUN/CRE 18.2 {RATIO} (Normal) Range: 10-20 EST GFR - AA 106 mL/min (Normal) Comments: GFR Calc EST GFR 88 mL/min (Normal) Comments: Non- GFR Calc CREAT,SERUM 0.77 mg/dL (Normal) Range: 0.55-1.02 Comments: The validity of the calculated GFR AND GFRAA in patients over70 years has not been determined. Clinical correlation isessential. BUN 14 mg/dL (Normal) Range: 7-18 GLU 86 mg/dL (Normal) Range: 74-106 Comments: Please note revised GLUCOSE reference range egjoklnir68/02/2018. 49-Jqr-830754:04 D-Dimer Quantitative (DVT/PE) Comments: [facility] [address] [place], [place], [id number] D-DIMER QUANT 1.09 {FEU/ug/m} (Abnormal) Range: 0.27-0.49 Comments: D-Dimer ELEVATED (>0.49): Additional studies and clinicalassessments are indicated to conclude diagnosis of:Deep Vein Thrombosis (DVT) or Pulmonary Embolism (PE) 53-Vcm-456120:04 Thyroid Stim Hormone (TSH) Comments: [facility] [address] [place], [address] TSH 1.21 {uIU/mL} (Normal) Range: 0.358-3.74 4-Aws-222041:58 Thyroxine (T4) Free, Direct, Comments: PATIENT WAS FASTINGPERFORMED BY: [address] [id number]; can review on 08/29 S T4,Free(Direct) 0.97 ng/dL Range: 0.82-1.77 (Normal) Triiodothyronine,Free,Seru 2.8 pg/mL (Normal) Comments: PATIENT WAS FASTINGPERFORMED BY: [facility] [place] [address] [id number] 0:58 m Range: 2.0-4.4 TSH 1.540 {uIU/mL} Comments: PATIENT WAS FASTINGPERFORMED BY: [facility] [place] [address] [id number] 0:58 (Normal) Range: 0.450-4.500 95-Iuk-297589:17 Blood Glucose , Office (03139) Blood Glucose , Office 96 (Normal) 82-Rbq-188436:17 HgA1C , Office (82780) HgA1C , Office 5.1 % (Normal) Range: 4.6 - 7.1 :06 LIPOPROTEIN, BLD, BY NMR Comments: PATIENT WAS FASTINGPERFORMED BY: [address] [id number] BY: [facility] [place] [address] [id number] (09723) LP-IR Score <25 (Normal) Comments: INSULIN RESISTANCE MARKER <--Insulin Sensitive Insulin Resistant--> Percentile in Reference PopulationInsulin Resistance ScoreLP-IR Score Low 25th 50th 75th High <27 27 45 63 >63LP-IR Score is inaccurate if patient is non-fasting. .The LP-IR score is a laboratory developed i [facility] that has beenassociated with insulin resistance and diabetes risk and should beused as one component of a physician's clinical assessment. TheLP-IR score listed above has not been cleared by the [place] Food andDrug Administration. LDL Size 21.1 nm (Normal) Comments: INTERPRETATIVE INFORMATION PARTICLE CONCENTRATION AND SIZE <--Lower CVD Risk Highe r CVD Risk--> LDL AND HDL PARTICLES Percentile in Reference Population HDL-P (total) High 75th 50th 25th Low >34.9 34.9 30.5 26.7 <26.7 . Small LDL-P Low 25th 50th 75th High <117 117 527 839 >839 . LDL Size <-Large (Pattern A)-> <-Small (Pattern B)-> 23.0 20.6 20.5 19.0 Small LDL-P and LDL Size are associated with CVD risk, but not afterLDL-P is taken into account. .These assays were developed and their performance characteristicsdetermined by [employer]. These assays have not been cleared by [place] Food and Drug Administration. The clinical utility of theselaboratory values have not been fully established. Small LDL-P 418 nmol/L (Normal) HDL-P (Total) 30.4 umol/L (Abnormal) Cholesterol, Total 198 mg/dL (Normal) Range: 100-199 Triglycerides 58 mg/dL (Normal) Range: 0-149 HDL-C 59 mg/dL (Normal) LDL-C 127 mg/dL (Abnormal) Range: 0-99 Comments: . Optimal < 100 Above optimal 100 - 129 Borderline 1 30 - 159 High 160 - 189 Very high > 189 .LDL-C is inaccurate if patient is non-fasting. LDL-P 1338 nmol/L (Abnormal) Comments: Low < 1000 Moderate 1000 - 1299 Borderline-High 1300 - 1599 High 1600 - 2000 Very High > 2000 18-Feb-20169:06 METABOLIC PANEL, Comments: PATIENT WAS FASTINGPERFORMED BY: [address] [place] [id number] BY: KHANH [facility] [place] Ibmdma9335 [facility] [id number] [facility] ([address]) ALT (SGPT) 17 [iU]/L (Normal) Range: 0-32 AST (SGOT) 21 [iU]/L (Normal) Range: 0-40 Alkaline Phosphatase, S 64 [iU]/L (Normal) Range: 39-117 Bilirubin, Total 0.7 mg/dL (Normal) Range: 0.0-1.2 A/G Ratio 1.8 (Normal) Range: 1.1-2.5 Globulin, Total 2.5 g/dL (Normal) Range: 1.5-4.5 Albumin, Serum 4.6 g/dL (Normal) Range: 3.5-5.5 Protein, Total, Serum 7.1 g/dL (Normal) Range: 6.0-8.5 Calcium, Serum 9.2 mg/dL (Normal) Range: 8.7-10.2 Carbon Dioxide, Total 22 mmol/L (Normal) Range: 18-29 Chloride, Serum 100 mmol/L (Normal) Range: 97-106 Comments: Effective February 28, 2016 the reference interval for Chloride, Serum will be changing to: 96 - 106 Potassium, Serum 4.6 mmol/L (Normal) Range: 3.5-5.2 Sodium, Serum 140 mmol/L (Normal) Range: 136-144 Comments: Effective February 28, 2016 the reference interval for Sodium, Serum will be changing to: 134 - 144 BUN/Creatinine Ratio 21 (Abnormal) Range: 8-20 eGFR If Africn Am 122 mL/min/1.73 (Normal) eGFR If NonAfricn Am 106 mL/min/1.73 (Normal) Creatinine, Serum 0.72 mg/dL (Normal) Range: 0.57-1.00 BUN 15 mg/dL (Normal) Range: 6-20 Glucose, Serum 80 mg/dL (Normal) Range: 65-99 18-Feb-20169:06 MICROALBUMIN: CREATININE Comments: PATIENT WAS FASTINGPERFORMED BY: [facility] [id number] BY: KHANH LabPradamaKeith [place] [id number] [facility] [id number] RATIO (26885) AND (27170) Microalb/Creat Ratio 16.1 {mg/g_creat} (Normal) Range: 0.0-30.0 Microalbumin, Urine 38.3 ug/mL (Normal) Creatinine, Urine 237.7 mg/dL (Normal) :06 HGB A1C (31423) Comments: PATIENT WAS FASTINGPERFORMED BY: [address] [id number] BY: [place] [address]6070 [facility] [id number] Hemoglobin A1c 5.6 % (Normal) Range: 4.8-5.6 Comments: . Pre-diabetes: 5.7 - 6.4 Diabetes: >6.4 Glycemic control for adults with diabetes: <7.0 :06 T4, FREE (THYROXINE) Comments: PATIENT WAS FASTINGPERFORMED BY: [address] [id number] BY: [address] [id number] (11409) T4,Free(Direct) 1.08 ng/dL (Normal) Range: 0.82-1.77 :06 T3, FREE (TRIDOTHYRONINE) Comments: PATIENT WAS FASTINGPERFORMED BY: [address] [id number] BY: [place] [address]6070 [facility] [id number] (99803) Triiodothyronine,Free,Serum 3.1 pg/mL (Normal) Range: 2.0-4.4 :06 RUBEOLA IgG (60138) Comments: PATIENT WAS FASTINGPERFORMED BY: [address] [id number] BY: [place] [address]60[address] [facility] [id number] Rubeola Ab, IgG >300.0 AU/mL (Normal) Comments: Negative <25.0 Equivocal 25.0 - 29.9 Positive >29.9 Presence of antibodies to Rubeola is presumptive evidence of immunity except when acute infection is suspected. :06 RUBELLA IgG (68626) Comments: PATIENT WAS FASTINGPERFORMED BY: [employer] [id number] BY: [place] [address]70 [facility] [id number] Rubella Antibodies, IgG 29.30 {index} (Normal) Comments: Non-immune <0.90 Equivocal 0.90 - 0.99 Immune >0.99 :06 MUMPS IgG (19539) Comments: PATIENT WAS FASTINGPERFORMED BY: [employer] [id number] BY: [address] [id number] Mumps Abs, IgG 285.0 AU/mL (Normal) Comments: Negative <9.0 Equivocal 9.0 - 10.9 Positive >10.9 A positive result genera lly indicates past exposure to Mumps virus or previous vaccination. :47 HgA1C , Office (99140) HgA1C , Office 5.3 % (Normal) Range: 4.6 - 7.1 :36 CBC W/AUTO DIFF WBC Comments: PATIENT WAS FASTINGPERFORMED BY: [address] [id number] Information: [id number] (36626) Immature Grans (Abs) 0.0 {x10E3/uL} (Normal) Range: 0.0-0.1 Immature Granulocytes 0 % (Normal) Baso (Absolute) 0.0 {x10E3/uL} (Normal) Range: 0.0-0.2 Eos (Absolute) 0.1 {x10E3/uL} (Normal) Range: 0.0-0.4 Monocytes(Absolute) 0.5 {x10E3/uL} (Normal) Range: 0.1-0.9 Lymphs (Absolute) 2.3 {x10E3/uL} (Normal) Range: 0.7-3.1 Neutrophils (Absolute) 4.6 {x10E3/uL} (Normal) Range: 1.4-7.0 Basos 0 % (Normal) Eos 1 % (Normal) Monocytes 6 % (Normal) Lymphs 31 % (Normal) Neutrophils 62 % (Normal) Platelets 330 {x10E3/uL} (Normal) Range: 150-379 RDW 13.8 % (Normal) Range: 12.3-15.4 MCHC 33.2 g/dL (Normal) Range: 31.5-35.7 MCH 30.5 pg (Normal) Range: 26.6-33.0 MCV 92 fL (Normal) Range: 79-97 Hematocrit 38.6 % (Normal) Range: 34.0-46.6 Hemoglobin 12.8 g/dL (Normal) Range: 11.1-15.9 RBC 4.20 {x10E6/uL} (Normal) Range: 3.77-5.28 WBC 7.4 {x10E3/uL} (Normal) Range: 3.4-10.8 75-Onb-70233:36 METABOLIC PANEL, COMPREHENSIVE Comments: PATIENT WAS FASTINGPERFORMED BY: [facility]CoKind[facility] at RahwayYlmefk0339 [facility] [id number] (25336) ALT (SGPT) 15 [iU]/L (Normal) Range: 0-32 AST (SGOT) 14 [iU]/L (Normal) Range: 0-40 Alkaline Phosphatase, S 58 [iU]/L (Normal) Range: 39-117 Bilirubin, Total 0.3 mg/dL (Normal) Range: 0.0-1.2 A/G Ratio 2.0 (Normal) Range: 1.1-2.5 Globulin, Total 2.3 g/dL (Normal) Range: 1.5-4.5 Albumin, Serum 4.6 g/dL (Normal) Range: 3.5-5.5 Protein, Total, Serum 6.9 g/dL (Normal) Range: 6.0-8.5 Calcium, Serum 9.2 mg/dL (Normal) Range: 8.7-10.2 Carbon Dioxide, Total 23 mmol/L (Normal) Range: 18-29 Chloride, Serum 103 mmol/L (Normal) Range: 97-108 Potassium, Serum 4.6 mmol/L (Normal) Range: 3.5-5.2 Sodium, Serum 141 mmol/L (Normal) Range: 134-144 BUN/Creatinine Ratio 27 (Abnormal) Range: 8-20 eGFR If Africn Am 137 mL/min/1.73 (Normal) eGFR If NonAfricn Am 119 mL/min/1.73 (Normal) Creatinine, Serum 0.55 mg/dL (Abnormal) Range: 0.57-1.00 BUN 15 mg/dL (Normal) Range: 6-20 Glucose, Serum 100 mg/dL (Abnormal) Range: 65-99 58-Swi-38825:36 LIPID PANEL (18729) Comments: PATIENT WAS FASTINGPERFORMED BY: [facility] [id number] LDL/HDL Ratio 1.8 {ratio_units} (Normal) Range: 0.0-3.2 Comments: LDL/HDL Ratio Men Women 1/2 Avg.Risk 1.0 1.5 Av g.Risk 3.6 3.2 2X Avg.Risk 6.2 5.0 3X Avg.Risk 8.0 6.1 LDL Cholesterol Calc 108 mg/dL (Abnormal) Range: 0-99 VLDL Cholesterol Kevin 12 mg/dL (Normal) Range: 5-40 HDL Cholesterol 60 mg/dL (Normal) Comments: According to ATP-III Guidelines, HDL-C >59 mg/dL is considered anegative risk factor for CHD. Triglycerides 61 mg/dL (Normal) Range: 0-149 Cholesterol, Total 180 mg/dL (Normal) Range: 100-199 87-Yji-445642:58 Glucose Tolerance (6 Sp Comments: PATIENT WAS FASTINGPERFORMED BY: [employer]6370 DocDocFormerly [facility] [id number] Information: 75G Blood) Glucose, 5 hour 70 mg/dL (Normal) Range: 65-109 Glucose, 3 hour 89 mg/dL (Normal) Range: 65-109 Glucose, 4 hour 102 mg/dL (Normal) Range: 65-109 Glucose, 2 hour 122 mg/dL (Normal) Range: 65-139 Glucose, 1 hour 129 mg/dL (Normal) Range: 65-199 Glucose, Fasting 97 mg/dL (Normal) Range: 65-99 :01 TSH (THYROID STIMULATING Comments: PATIENT WAS FASTINGPERFORMED BY: [facility]6[address] [facility] [id number] HORMONE) (85878) TSH 1.750 {uIU/mL} (Normal) Range: 0.450-4.500 :01 CBC with manual diff Comments: PATIENT WAS FASTINGPERFORMED BY: [facility] [id number] Information: [id number] (00215) Immature Grans (Abs) 0.0 {x10E3/uL} (Normal) Range: 0.0-0.1 Immature Granulocytes 0 % (Normal) Range: 0-2 Baso (Absolute) 0.0 {x10E3/uL} (Normal) Range: 0.0-0.2 Eos (Absolute) 0.1 {x10E3/uL} (Normal) Range: 0.0-0.4 Monocytes(Absolute) 0.3 {x10E3/uL} (Normal) Range: 0.1-1.0 Lymphs (Absolute) 2.2 {x10E3/uL} (Normal) Range: 0.7-4.5 Neutrophils (Absolute) 3.7 {x10E3/uL} (Normal) Range: 1.8-7.8 Basos 0 % (Normal) Range: 0-3 Eos 2 % (Normal) Range: 0-7 Monocytes 5 % (Normal) Range: 4-13 Lymphs 35 % (Normal) Range: 14-46 Neutrophils 58 % (Normal) Range: 40-74 Platelets 274 {x10E3/uL} (Normal) Range: 140-415 RDW 14.1 % (Normal) Range: 12.3-15.4 MCHC 33.6 g/dL (Normal) Range: 31.5-35.7 MCH 30.8 pg (Normal) Range: 26.6-33.0 MCV 92 fL (Normal) Range: 79-97 Hematocrit 37.2 % (Normal) Range: 34.0-46.6 Hemoglobin 12.5 g/dL (Normal) Range: 11.1-15.9 RBC 4.06 {x10E6/uL} (Normal) Range: 3.77-5.28 WBC 6.3 {x10E3/uL} (Normal) Range: 4.0-10.5 55-Dma-81264:01 Metabolic Panel, Comprehensive Comments: PATIENT WAS FASTINGPERFORMED BY: [facility]Kind[facility] at RahwayMqaaqs9250 [facility] [id number] (65161) ALT (SGPT) 11 [iU]/L (Normal) Range: 0-32 AST (SGOT) 18 [iU]/L (Normal) Range: 0-40 Alkaline Phosphatase, S 55 [iU]/L (Normal) Range: 25-150 Bilirubin, Total 0.5 mg/dL (Normal) Range: 0.0-1.2 A/G Ratio 1.9 (Normal) Range: 1.1-2.5 Globulin, Total 2.4 g/dL (Normal) Range: 1.5-4.5 Albumin, Serum 4.5 g/dL (Normal) Range: 3.5-5.5 Protein, Total, Serum 6.9 g/dL (Normal) Range: 6.0-8.5 Calcium, Serum 9.0 mg/dL (Normal) Range: 8.7-10.2 Carbon Dioxide, Total 23 mmol/L (Normal) Range: 20-32 Chloride, Serum 105 mmol/L (Normal) Range: 97-108 Potassium, Serum 4.2 mmol/L (Normal) Range: 3.5-5.2 Sodium, Serum 141 mmol/L (Normal) Range: 134-144 BUN/Creatinine Ratio 27 (Abnormal) Range: 8-20 eGFR If Africn Am 136 mL/min/1.73 (Normal) eGFR If NonAfricn Am 118 mL/min/1.73 (Normal) Creatinine, Serum 0.59 mg/dL (Normal) Range: 0.57-1.00 BUN 16 mg/dL (Normal) Range: 6-20 Glucose, Serum 98 mg/dL (Normal) Range: 65-99 21-Cum-785561:48 METABOLIC PANEL, COMPREHENSIVE Comments: PATIENT NOT FASTINGPERFORMED BY: [facility]Kind[facility] RahwayEwsmja4466 [facility] [id number] (13722) ALT (SGPT) 36 [iU]/L (Normal) Range: 0-40 AST (SGOT) 34 [iU]/L (Normal) Range: 0-40 Alkaline Phosphatase, S 57 [iU]/L (Normal) Range: 25-150 Bilirubin, Total 0.7 mg/dL (Normal) Range: 0.0-1.2 A/G Ratio 2.0 (Normal) Range: 1.1-2.5 Globulin, Total 2.1 g/dL (Normal) Range: 1.5-4.5 Albumin, Serum 4.1 g/dL (Normal) Range: 3.5-5.5 Protein, Total, Serum 6.2 g/dL (Normal) Range: 6.0-8.5 Calcium, Serum 8.3 mg/dL (Abnormal) Range: 8.7-10.2 Carbon Dioxide, Total 21 mmol/L (Normal) Range: 20-32 Chloride, Serum 101 mmol/L (Normal) Range: 97-108 Potassium, Serum 3.5 mmol/L (Normal) Range: 3.5-5.2 Sodium, Serum 135 mmol/L (Normal) Range: 134-144 BUN/Creatinine Ratio 39 (Abnormal) Range: 8-20 eGFR If Africn Am 134 mL/min/1.73 (Normal) Comments: Note: A persistent eGFR <60 mL/min/1.73 m2 (3 months or more) mayindicate chronic kidney disease. An eGFR >59 mL/min/1.73 m2 with anelevated urine protein also may indicate chronic kidney disease.Calculated using CKD-EPI formula. eGFR If NonAfricn Am 116 mL/min/1.73 (Normal) Creatinine, Serum 0.62 mg/dL (Normal) Range: 0.57-1.00 BUN 24 mg/dL (Abnormal) Range: 6-20 Glucose, Serum 93 mg/dL (Normal) Range: 65-99 08-Omd-091345:48 CBC WITH MANUAL DIFF Comments: PATIENT NOT FASTINGPERFORMED BY: LabCoKindred Hospital at RahwayLaaflv6942 [facility] [id number] Information: [id number] (76758) Immature Grans (Abs) 0.0 {x10E3/uL} (Normal) Range: 0.0-0.1 Immature Granulocytes 0 % (Normal) Range: 0-2 Baso (Absolute) 0.0 {x10E3/uL} (Normal) Range: 0.0-0.2 Eos (Absolute) 0.0 {x10E3/uL} (Normal) Range: 0.0-0.4 Monocytes(Absolute) 0.8 {x10E3/uL} (Normal) Range: 0.1-1.0 Lymphs (Absolute) 1.7 {x10E3/uL} (Normal) Range: 0.7-4.5 Neutrophils (Absolute) 4.0 {x10E3/uL} (Normal) Range: 1.8-7.8 Basos 0 % (Normal) Range: 0-3 Eos 0 % (Normal) Range: 0-7 Monocytes 11 % (Normal) Range: 4-13 Lymphs 26 % (Normal) Range: 14-46 Neutrophils 63 % (Normal) Range: 40-74 Platelets 296 {x10E3/uL} (Normal) Range: 140-415 RDW 13.7 % (Normal) Range: 11.7-15.0 MCHC 35.6 g/dL (Normal) Range: 32.0-36.0 MCH 30.9 pg (Normal) Range: 27.0-34.0 MCV 87 fL (Normal) Range: 80-98 Hematocrit 37.6 % (Normal) Range: 34.0-44.0 Hemoglobin 13.4 g/dL (Normal) Range: 11.5-15.0 RBC 4.33 {x10E6/uL} (Normal) Range: 3.80-5.10 WBC 6.6 {x10E3/uL} (Normal) Range: 4.0-10.5 :29 LIPID PANEL (77495) Comments: PATIENT WAS FASTINGPERFORMED BY: LabCoKindred Hospital at RahwayDxvivp6918 [facility] [id number] LDL/HDL Ratio 1.7 {ratio_units} (Normal) Range: 0.0-3.2 LDL Cholesterol Calc 100 mg/dL (Abnormal) Range: 0-99 VLDL Cholesterol Kevin 12 mg/dL (Normal) Range: 5-40 HDL Cholesterol 58 mg/dL (Normal) Comments: According to ATP-III Guidelines, HDL-C >59 mg/dL is considered anegative risk factor for CHD. Triglycerides 58 mg/dL (Normal) Range: 0-149 Cholesterol, Total 170 mg/dL (Normal) Range: 100-199 :29 CBC WITH MANUAL DIFF Comments: PATIENT WAS FASTINGPERFORMED BY: KHANH [facility]otechBea[facility] Hospital6370 [facility] [id number] Information: [id number] ([id number]) Immature Grans (Abs) 0.0 {x10E3/uL} (Normal) Range: 0.0-0.1 Immature Granulocytes 0 % (Normal) Range: 0-2 Baso (Absolute) 0.0 {x10E3/uL} (Normal) Range: 0.0-0.2 Eos (Absolute) 0.0 {x10E3/uL} (Normal) Range: 0.0-0.4 Monocytes(Absolute) 0.4 {x10E3/uL} (Normal) Range: 0.1-1.0 Lymphs (Absolute) 2.3 {x10E3/uL} (Normal) Range: 0.7-4.5 Neutrophils (Absolute) 3.4 {x10E3/uL} (Normal) Range: 1.8-7.8 Basos 1 % (Normal) Range: 0-3 Eos 1 % (Normal) Range: 0-7 Monocytes 6 % (Normal) Range: 4-13 Lymphs 37 % (Normal) Range: 14-46 Neutrophils 55 % (Normal) Range: 40-74 Platelets 343 {x10E3/uL} (Normal) Range: 140-415 RDW 13.7 % (Normal) Range: 11.7-15.0 MCHC 34.6 g/dL (Normal) Range: 32.0-36.0 MCH 31.4 pg (Normal) Range: 27.0-34.0 MCV 91 fL (Normal) Range: 80-98 Hematocrit 36.4 % (Normal) Range: 34.0-44.0 Hemoglobin 12.6 g/dL (Normal) Range: 11.5-15.0 RBC 4.01 {x10E6/uL} (Normal) Range: 3.80-5.10 WBC 6.1 {x10E3/uL} (Normal) Range: 4.0-10.5 :29 METABOLIC PANEL, COMPREHENSIVE Comments: PATIENT WAS FASTINGPERFORMED BY: [facility] [id number] ([id number]) ALT (SGPT) 14 [iU]/L (Normal) Range: 0-40 AST (SGOT) 19 [iU]/L (Normal) Range: 0-40 Alkaline Phosphatase, S 62 [iU]/L (Normal) Range: 25-150 Bilirubin, Total 0.5 mg/dL (Normal) Range: 0.0-1.2 A/G Ratio 2.0 (Normal) Range: 1.1-2.5 Globulin, Total 2.4 g/dL (Normal) Range: 1.5-4.5 Albumin, Serum 4.8 g/dL (Normal) Range: 3.5-5.5 Protein, Total, Serum 7.2 g/dL (Normal) Range: 6.0-8.5 Calcium, Serum 9.4 mg/dL (Normal) Range: 8.7-10.2 Carbon Dioxide, Total 23 mmol/L (Normal) Range: 20-32 Chloride, Serum 104 mmol/L (Normal) Range: 97-108 Potassium, Serum 4.1 mmol/L (Normal) Range: 3.5-5.2 Sodium, Serum 142 mmol/L (Normal) Range: 134-144 BUN/Creatinine Ratio 22 (Abnormal) Range: 8-20 eGFR If Africn Am 131 mL/min/1.73 (Normal) Comments: Note: A persistent eGFR <60 mL/min/1.73 m2 (3 months or more) mayindicate chronic kidney disease. An eGFR >59 mL/min/1.73 m2 with anelevated urine protein also may indicate chronic kidney disease.Calculated using CKD-EPI formula. eGFR If NonAfricn Am 113 mL/min/1.73 (Normal) Creatinine, Serum 0.67 mg/dL (Normal) Range: 0.57-1.00 BUN 15 mg/dL (Normal) Range: 6-20 Glucose, Serum 89 mg/dL (Normal) Range: 65-99 06-Pbu-932555:29 MICROALBUMIN: CREATININE RATIO Comments: PATIENT WAS FASTINGPERFORMED BY: LabCoKindred Hospital at RahwayFpjfti5965 [facility] [id number] ([id number]) AND (70249) Microalb/Creat Ratio 3.0 {mg/g_creat} (Normal) Range: 0.0-30.0 Microalbumin, Urine 4.4 ug/mL (Normal) Range: 0.0-17.0 Creatinine, Urine 148.6 mg/dL (Normal) Range: 16.0-327.0 22-Qsk-261708:29 Hemoglobin Glyclated (HGB A1C) Comments: PATIENT WAS FASTINGPERFORMED BY: [facility]otechBe[facility] Hospital6370 [facility] [id number] (09453) Hemoglobin A1c 5.5 % (Normal) Range: 4.8-5.6 Comments: . Increased risk for diabetes: 5.7 - 6.4 Diabetes: >6.4 Glycemic control for adults with diabetes: <7.0 23-Mzv-081944:31 AMARA CULTURE-OTHER (68055) Comments: PATIENT NOT FASTINGPERFORMED BY: [facility] BiotechMit[place] [id number] [facility] [id number] Information: SRC:THRT [id number] Result 1 RRF (Normal) Comments: Routine respiratory antelmo Upper Respiratory Culture Final report (Normal) 45-Blp-682985:20 METABOLIC PANEL, Comments: PATIENT NOT FASTINGPERFORMED BY: [facility] [id number] Information: [id number] COMPREHENSIVE (47668) ALT (SGPT) 15 [iU]/L (Normal) Range: 0-40 AST (SGOT) 24 [iU]/L (Normal) Range: 0-40 Alkaline Phosphatase, S 72 [iU]/L (Normal) Range: 25-150 Bilirubin, Total 0.5 mg/dL (Normal) Range: 0.0-1.2 A/G Ratio 2.0 (Normal) Range: 1.1-2.5 Globulin, Total 2.5 g/dL (Normal) Range: 1.5-4.5 Albumin, Serum 4.9 g/dL (Normal) Range: 3.5-5.5 Protein, Total, Serum 7.4 g/dL (Normal) Range: 6.0-8.5 Calcium, Serum 9.7 mg/dL (Normal) Range: 8.7-10.2 Carbon Dioxide, Total 23 mmol/L (Normal) Range: 20-32 Chloride, Serum 101 mmol/L (Normal) Range: 97-108 Potassium, Serum 3.9 mmol/L (Normal) Range: 3.5-5.2 Sodium, Serum 141 mmol/L (Normal) Range: 135-145 BUN/Creatinine Ratio 20 (Normal) Range: 8-20 eGFR If Africn Am 110 mL/min/1.73 (Normal) Comments: Note: A persistent eGFR <60 mL/min/1.73 m2 (3 months or more) mayindicate chronic kidney disease. An eGFR >59 mL/min/1.73 m2 with anelevated urine protein also may indicate chronic kidney disease.Calculated using CKD-EPI formula. eGFR If NonAfricn Am 96 mL/min/1.73 (Normal) Creatinine, Serum 0.80 mg/dL (Normal) Range: 0.57-1.00 BUN 16 mg/dL (Normal) Range: 6-20 Glucose, Serum 89 mg/dL (Normal) Range: 65-99 52-Pwt-223346:20 TSH (48247) Comments: PATIENT NOT FASTINGPERFORMED BY: [employer] [facility]Navitell Esefdn0337 [facility] [id number] TSH 1.650 {uIU/mL} (Normal) Range: 0.450-4.500 92-Hch-152451:33 Metabolic Panel, Comprehensive Comments: PATIENT NOT FASTINGPERFORMED BY: [employer] LabPradamaKindred Hospital at RahwayVnraso0437 [facility] [id number] (20835) ALT (SGPT) 15 [iU]/L (Normal) Range: 0-40 A/G Ratio 1.7 (Normal) Range: 1.1-2.5 Albumin, Serum 4.5 g/dL (Normal) Range: 3.5-5.5 Alkaline Phosphatase, S 65 [iU]/L (Normal) Range: 25-150 AST (SGOT) 20 [iU]/L (Normal) Range: 0-40 Bilirubin, Total 0.5 mg/dL (Normal) Range: 0.0-1.2 Globulin, Total 2.6 g/dL (Normal) Range: 1.5-4.5 Calcium, Serum 9.2 mg/dL (Normal) Range: 8.7-10.2 Carbon Dioxide, Total 24 mmol/L (Normal) Range: 20-32 Chloride, Serum 103 mmol/L (Normal) Range: 97-108 Protein, Total, Serum 7.1 g/dL (Normal) Range: 6.0-8.5 Potassium, Serum 4.3 mmol/L (Normal) Range: 3.5-5.2 Sodium, Serum 141 mmol/L (Normal) Range: 135-145 BUN/Creatinine Ratio 15 (Normal) Range: 8-20 eGFR If Africn Am 112 mL/min/1.73 (Normal) Comments: Note: A persistent eGFR <60 mL/min/1.73 m2 (3 months or more) mayindicate chronic kidney disease. An eGFR >59 mL/min/1.73 m2 with anelevated urine protein also may indicate chronic kidney disease.Calculated using CKD-EPI formula. eGFR If NonAfricn Am 97 mL/min/1.73 (Normal) BUN 12 mg/dL (Normal) Range: 6-20 Creatinine, Serum 0.79 mg/dL (Normal) Range: 0.57-1.00 Glucose, Serum 96 mg/dL (Normal) Range: 65-99 04-Jvk-753430:33 CBC with manual diff Comments: PATIENT NOT FASTINGPERFORMED BY: [facility] Txvrgx5890 [facility] [id number] Information: [id number] (69265) Immature Grans (Abs) 0.0 {x10E3/uL} (Normal) Range: 0.0-0.1 Baso (Absolute) 0.0 {x10E3/uL} (Normal) Range: 0.0-0.2 Eos (Absolute) 0.1 {x10E3/uL} (Normal) Range: 0.0-0.4 Immature Granulocytes 0 % (Normal) Range: 0-1 Lymphs (Absolute) 2.4 {x10E3/uL} (Normal) Range: 0.7-4.5 Monocytes(Absolute) 0.4 {x10E3/uL} (Normal) Range: 0.1-1.0 Neutrophils (Absolute) 3.3 {x10E3/uL} (Normal) Range: 1.8-7.8 Basos 1 % (Normal) Range: 0-3 Eos 1 % (Normal) Range: 0-7 Monocytes 6 % (Normal) Range: 4-13 Lymphs 39 % (Normal) Range: 14-46 Neutrophils 53 % (Normal) Range: 40-74 MCH 30.4 pg (Normal) Range: 27.0-34.0 MCHC 34.3 g/dL (Normal) Range: 32.0-36.0 Platelets 304 {x10E3/uL} (Normal) Range: 140-415 RDW 14.1 % (Normal) Range: 11.7-15.0 Hematocrit 38.2 % (Normal) Range: 34.0-44.0 Hemoglobin 13.1 g/dL (Normal) Range: 11.5-15.0 MCV 89 fL (Normal) Range: 80-98 RBC 4.31 {x10E6/uL} (Normal) Range: 3.80-5.10 WBC 6.2 {x10E3/uL} (Normal) Range: 4.0-10.5 43-Wlr-229840:33 TSH ([id number]) Comments: PATIENT NOT FASTINGPERFORMED BY: LabCoKindred Hospital at RahwayJmzzej3295 [facility] [id number] TSH 1.810 {uIU/mL} (Normal) Range: 0.450-4.500 01-Lvu-66150:03 ABDOMEN/PELVIS WITH CONTRAST Radiology Report See Note (Normal) Comments: Exam Number: [id number] CLINICAL:33-year-old female with right lower quadrant pain. CT ABDOMEN WITH CONTRAST COMPARISON:None. TECHNIQUE:Transaxial imaging was performed post oral and intravenous contrast administration. The examination was performed with intravenous administration of 100 ml of Isovue 300 contrast material. Delayed axial images were performed. Coronal and sagittal reconstructions are provided. FINDINGS:The visualized lower lungs are clear. The visualized heart is normal in size, morphology and position. The liver is normal in size and contour with normal enhancement, and without a demonstrated mass, cyst or dilated intrahepatic bile ducts. The spleen is normal size and contour with normal enhancement. The gallbladder is distended and the wall is thickened. There is a small amou nt of pericholecystic fluid seen laterally between the liver and gallbladder wall. In the dependent portion of the gallbladder there is some increased density material with small collections of gas. T hese probably represents gallstones with fissures that contain gas. Normal visualized intra and extra hepatic bile ducts. The pancreas is normal without focal or diffuse enlargement, atrophy or pancrea tic calcifications. Normal bilateral adrenal glands. The right kidney is normal in size, location and morphology. The visualized bilateral ureters are normal without a demonstrated hydroureter or urete ral calculus. The left kidney is normal in size, location and morphology. The visualized bilateral ureters are normal without a demonstrated hydroureter or ureteral calculus. Normal retroperitoneum wi thout lymphadenopathy or a mass lesion. Normal visualized distal esophagus and stomach. Normal visualized small intestine, without an obstruction or bowel wall edema. Normal visualized large intestine, without obstruction, diverticulosis, diverticulitis, or pericolonic inflammation. The region of the appendix is normal without a demonstrated appendicitis, appendicolith or periappendiceal inflammation or mass. There is no peritoneal fluid. There is no demonstrated free peritoneal or extraluminal gas. Normal caliber of the abdominal aorta. Normal caliber of the inferior vena cava. Normal visualized osseous and soft tissue structures in the abdominal region. CT PELVIS WITH CONTRAST COMPARISON:See above. TECHNIQUE:See above. FINDINGS:Normal bladder without demonstrated mass, wall thickening or calc ulus. The uterus is normal in size and contour. Follicles are seen of both ovaries with a dominant 2.0 cm cyst the left ovary. There is a small amount of pelvic ascites is probably physiologic. There is no demonstrated pelvic or inguinal lymphadenopathy. Normal retroperitoneum without lymphadenopathy or a mass lesion. Normal loops of small intestines visualized within the pelvis. Normal rectosigmoi d colon, and pericolonic soft tissue structures. Normal visualized pelvic arteries and veins. Normal abdominal wall without a demonstrated hernia. There is no inguinal adenopathy. Normal visualized oss eous and soft tissue structures of the pelvis. IMPRESSION:1. Acute and chronic cholecystitis with gallstones. Possible early perforation. 2. Physiologic appearance of the ovaries with a small amount of pelvic ascites. Examination is otherwise unremarkable. 3. Normal appendix. N.B. : The above information has been verbally conveyed by Nikolas Smart D.O. to TORITO Carter, referring physician, on 01/07/2009 13:24:43 (EDT). Reported By: NIKOLAS SMART Dr. 55-Izu-37572:38 Urine Test, Office (29229) Urine Test, Office Negative (Normal) 59-Wrq-84415:45 CBC with manual diff (03545) Comments: PATIENT NOT FASTINGClinical Information: [id number] PERFORMED BY: [facility] [place] [facility] [place] [id number] [facility] [id number] Baso (Absolute) 0.0 {x10E3/uL} (Normal) Range: 0.0-0.2 Basos 0 % (Normal) Range: 0-3 Eos 0 % (Normal) Range: 0-7 Eos (Absolute) 0.0 {x10E3/uL} (Normal) Range: 0.0-0.4 Hematocrit 38.2 % (Normal) Range: 34.0-44.0 Hemoglobin 13.6 g/dL (Normal) Range: 11.5-15.0 Lymphs 28 % (Normal) Range: 14-46 Lymphs (Absolute) 2.7 {x10E3/uL} (Normal) Range: 0.7-4.5 MCH 31.9 pg (Normal) Range: 27.0-34.0 MCHC 35.5 g/dL (Normal) Range: 32.0-36.0 MCV 90 fL (Normal) Range: 80-98 Monocytes 5 % (Normal) Range: 4-13 Monocytes(Absolute) 0.5 {x10E3/uL} (Normal) Range: 0.1-1.0 Neutrophils 67 % (Normal) Range: 40-74 Neutrophils (Absolute) 6.4 {x10E3/uL} (Normal) Range: 1.8-7.8 Platelets 315 {x10E3/uL} (Normal) Range: 140-415 RBC 4.26 {x10E6/uL} (Normal) Range: 3.80-5.10 RDW 14.1 % (Normal) Range: 11.7-15.0 WBC 9.6 {x10E3/uL} (Normal) Range: 4.0-10.5 66-Yzw-49050:45 Metabolic Panel, Comprehensive Comments: PATIENT NOT FASTINGPERFORMED BY: [facility] [id number] ([id number]) A/G Ratio 1.9 (Normal) Range: 1.1-2.5 Albumin, Serum 5.2 g/dL (Normal) Range: 3.5-5.5 Alkaline Phosphatase, S 57 [iU]/L (Normal) Range: 25-150 ALT (SGPT) 13 [iU]/L (Normal) Range: 0-40 AST (SGOT) 20 [iU]/L (Normal) Range: 0-40 Bilirubin, Total 0.6 mg/dL (Normal) Range: 0.1-1.2 BUN 12 mg/dL (Normal) Range: 5-26 BUN/Creatinine Ratio 16 (Normal) Range: 8-27 Calcium, Serum 11.5 mg/dL (Abnormal) Range: 8.5-10.6 Carbon Dioxide, Total 24 mmol/L (Normal) Range: 20-32 Chloride, Serum 101 mmol/L (Normal) Range: 97-108 Creatinine, Serum 0.73 mg/dL (Normal) Range: 0.57-1.00 eGFR >59 mL/min/1.73 (Normal) eGFR AfricanAmerican >59 mL/min/1.73 Comments: Note: Persistent reduction for 3 months or more in an eGFR<60 mL/min/1.73 m2 defines CKD. Patients with eGFR values>/=60 mL/min/1.73 m2 may also have CKD if evidence of persistentproteinuria is (Normal) present. Additional information may be found [email or web address]. Globulin, Total 2.7 g/dL (Normal) Range: 1.5-4.5 Glucose, Serum 97 mg/dL (Normal) Range: 65-99 Potassium, Serum 4.0 mmol/L (Normal) Range: 3.5-5.2 Protein, Total, Serum 7.9 g/dL (Normal) Range: 6.0-8.5 Sodium, Serum 141 mmol/L (Normal) Range: 135-145 :34 Urinalysis, Office (23602) UA - BILIRUBIN Negative (Normal) UA - BLOOD Negative (Normal) UA - GLUCOSE Negative (Normal) UA - KETONES Negative mg/dL (Normal) UA - LEUKOCYTE ESTERASE Negative (Normal) UA - NITRITE Negative (Normal) UA - PH 7.5 (Normal) UA - PROTEIN Negative mg/dL (Normal) UA - SPECIFIC GRAVITY 1.020 (Normal) URINE UROBILINGN KIANA TIMED Normal mg/dL (Normal) 40-Bfz-141063:25 DUPLEX ARTERIAL FLOW, LIMITED Radiology Report See Note (Normal) Comments: Exam Number: [id number] PELVIC ULTRASOUND AND DUPLEX ARTERIAL FLOW, LIMITED HISTORYThe patient is a 33-year-old woman with history of pelvic pain. A standard transabdominal study was performed through a distendedurinary bladder. The uterus is mildly enlarged measuring 10.1 x 3.5 x5.2 cm. The endometrium is normal at 4 mm. Both ovaries are normal. The right ovary measures 2.8 x 1.5 x 2.3 cm. The left ovary measures2.6 x 1.8 x 2.7 cm. There is normal vascular flow to both ovaries. There is no free fluid identified. IMPRESSIONNo abnormality is identified. Reported By: NIGEL ALEXANDRE M.D. 61-Sgf-396089:54 PELVIC (NON ) Radiology Report See Note (Normal) Comments: Exam Number: [id number] PELVIC ULTRASOUND AND DUPLEX ARTERIAL FLOW, LIMITED HISTORYThe patient is a 33-year-old woman with history of pelvic pain. A standard transabdominal study was performed through a distendedurinary bladder. The uterus is mildly enlarged measuring 10.1 x 3.5 x5.2 cm. The endometrium is normal at 4 mm. Both ovaries are normal. The right ovary measures 2.8 x 1.5 x 2.3 cm. The left ovary measures2.6 x 1.8 x 2.7 cm. There is normal vascular flow to both ovaries. There is no free fluid identified. IMPRESSIONNo abnormality is identified. Reported By: NIGEL ALEXANDRE M.D. 4-Ymw-358866:0 Lipoprotein (a) 63 mg/dL (Abnormal) Comments: PERFORMED BY: [facility]70 [facility] [id number] 5 Range: 0-30 Comments: Desirable: <20 Borderline high risk: 20 - 30 High risk: 31 - 50 Very high risk: >50 . Note: Values >30 may indicate independent risk factor for CH D. Significance of high Lp(a) in non-white populations must be evaluated with caution. 48-Wmw-644260:50 CBC With Differential/Platelet Comments: PATIENT WAS FASTINGPERFORMED BY: [employer] [id number] Baso (Absolute) 0.0 {x10E3/uL} (Normal) Range: 0.0-0.2 Basos 0 % (Normal) Range: 0-3 Eos 1 % (Normal) Range: 0-7 Eos (Absolute) 0.1 {x10E3/uL} (Normal) Range: 0.0-0.4 Hematocrit 38.2 % (Normal) Range: 34.0-44.0 Hemoglobin 13.2 g/dL (Normal) Range: 11.5-15.0 Lymphs 35 % (Normal) Range: 14-46 Lymphs (Absolute) 2.3 {x10E3/uL} (Normal) Range: 0.7-4.5 MCH 31.5 pg (Normal) Range: 27.0-34.0 MCHC 34.6 g/dL (Normal) Range: 32.0-36.0 MCV 91 fL (Normal) Range: 80-98 Monocytes 6 % (Normal) Range: 4-13 Monocytes(Absolute) 0.4 {x10E3/uL} (Normal) Range: 0.1-1.0 Neutrophils 58 % (Normal) Range: 40-74 Neutrophils (Absolute) 3.9 {x10E3/uL} (Normal) Range: 1.8-7.8 Platelets 310 {x10E3/uL} (Normal) Range: 140-415 RBC 4.19 {x10E6/uL} (Normal) Range: 3.80-5.10 RDW 13.8 % (Normal) Range: 11.7-15.0 WBC 6.7 {x10E3/uL} (Normal) Range: 4.0-10.5 39-Loz-003572:50 Comp. Metabolic Panel (14) Comments: PATIENT WAS FASTINGPERFORMED BY: LabCoKindred Hospital at RahwayZnaros0822 [facility] [id number] A/G Ratio 2.0 (Normal) Range: 1.1-2.5 Albumin, Serum 4.8 g/dL (Normal) Range: 3.5-5.5 Alkaline Phosphatase, 64 [iU]/L (Normal) Range: 25-150 S ALT (SGPT) 23 [iU]/L (Normal) Range: 0-40 AST (SGOT) 19 [iU]/L (Normal) Range: 0-40 Bilirubin, Total 0.6 mg/dL (Normal) Range: 0.1-1.2 BUN 19 mg/dL (Normal) Range: 5-26 BUN/Creatinine Ratio 30 (Abnormal) Range: 8-27 Calcium, Serum 9.5 mg/dL (Normal) Range: 8.5-10.6 Carbon Dioxide, Total 22 mmol/L (Normal) Range: 20-32 Chloride, Serum 102 mmol/L Range: 97-108 (Normal) Creatinine, Serum 0.64 mg/dL Range: 0.57-1.00 (Normal) Globulin, Total 2.4 g/dL (Normal) Range: 1.5-4.5 Glom Filt Rate, Est >59 mL/min/1.73 (Normal) Glucose, Serum 91 mg/dL (Normal) Range: 65-99 If -Jamaican >59 mL/min/1.73 Comments: Note: Persistent reduction for 3 months or more in an eGFR<60 mL/min/1.73 m2 defines CKD. Patients with eGFR values>/=60 mL/min/1.73 m2 may also have CKD if evidence of persistentproteinur ia is (Normal) present. Additional information may be found [email or web address]. Potassium, Serum 4.3 mmol/L Range: 3.5-5.2 (Normal) Protein, Total, Serum 7.2 g/dL (Normal) Range: 6.0-8.5 Sodium, Serum 139 mmol/L Range: 135-145 (Normal) Hemoglobin A1c 5.5 % (Normal) Comments: PATIENT WAS FASTINGPERFORMED BY: [email or web address] [id number] 5:50 Comments: Diabetic Adult <7.0 Healthy Adult 4.8 - 5.9 (DCCT/NGSP) [place] [employer]ete s Association's Summary of Glycemic Recommendations for Adults with Diabetes: Hemoglobin A1c <7.0%. More stringent glycemic goals (A1c <6.0%) may furth er reduce complications at the cost of increased risk of hypoglycemia. 13-Dmo-627701:50 Lipid Panel With LDL/HDL Comments: PATIENT WAS FASTINGPERFORMED BY: [employer] [place] [id number] Ratio Cholesterol, Total 194 mg/dL (Normal) Range: 100-199 Comment SPRCS (Normal) Comments: If initial LDL-cholesterol result is >100 mg/dL, assess forrisk factors. HDL Cholesterol 55 mg/dL (Normal) Comments: According to ATP-III Guidelines, HDL-C >59 mg/dL is considered anegative risk factor for CHD. LDL Cholesterol Calc 115 mg/dL Range: 0-99 (Abnormal) LDL/HDL Ratio 2.1 {ratio_units} Range: 0.0-3.2 (Normal) Triglycerides 118 mg/dL (Normal) Range: 0-149 VLDL Cholesterol Kevin 24 mg/dL (Normal) Range: 5-40 TSH 2.455 {uIU/mL} Comments: PATIENT WAS FASTINGPERFORMED BY: LabCoKindred Hospital at RahwayDibqqt2987 [facility] [id number] :50 (Normal) Range: 0.450-4.500 Plan of Care Name Dates Details Instructions BMI 29.0-29.9,adult : Eprescribed prescriptions (G8553) Indication: BMI 29.0-29.9,adult [facility] WELLNESS EXAM : Eprescribed prescriptions (G8553) Indication: [facility] WELLNESS EXAM Acute sinusitis : Follow up if no improvement or if symptoms worsen Indication: Acute sinusitis Acute sinusitis : Sinusitis *: sinus infection Indication: Acute sinusitis BMI 29.0-29.9,adult : Eprescribed prescriptions (G8553) Indication: BMI 29.0-29.9,adult BMI 29.0-29.9,adult : Eprescribed prescriptions (G8553) Indication: BMI 29.0-29.9,adult Non-smoker : Eprescribed prescriptions (G8553) Indication: Non-smoker Impaired fasting glucose : Eprescribed prescriptions (G8553) Indication: Impaired fasting glucose Impaired fasting glucose : Diet, Exercise, and Wt loss Indication: Impaired fasting glucose Impaired fasting glucose : Eprescribed prescriptions (G8553) Indication: Impaired fasting glucose Thrombophilia : Eprescribed prescriptions (G8553) Indication: Thrombophilia Itchy eyes : Follow up if no improvement or if symptoms worsen Indication: Itchy eyes Itchy eyes : Reviewed Lab Indication: Itchy eyes Vertigo : Follow up in 2 weeks Indication: Vertigo Cough : Cough: cough Indication: Cough Anxiety : *Antidepressant Usage Indication: Anxiety Headache : FOLLOW UP IN 1 WEEK Indication: Headache Vertigo : *Vertigo Education Indication: Vertigo Planned Observations D-Dimer (93006)Indication: Shortness of breath On: 43-Gxy-863716:52 Request Comments: stat TSH (17501)Indication: Shortness of breath On: 03-Khr-788703:51 Request CBC W/AUTO DIFF WBC (10711)Indication: Shortness of breath On: :51 Request METABOLIC PANEL, COMPREHENSIVE (00356)Indication: Shortness of breath On: 03-Sxf-344767:51 Request HGB A1C (21780)Indication: Impaired fasting glucose On: :17 Request METABOLIC PANEL, COMPREHENSIVE (39751)Indication: Impaired fasting glucose On: :17 Request LIPID PANEL (93096)Indication: Hyperlipidemia On: :17 Request Celiac Disease Comphrehensive Profile (27598)Indication: Diarrhea On: 02-Aln-458483:00 Request OVA & PARASITE DIR SMEAR (78629)Indication: Diarrhea On: :58 Request LEUKOCYTE COUNT, FECAL (95119)Indication: Diarrhea On: :58 Request Clostridium difficile Toxin A+B, EIA (59180)Indication: Diarrhea On: :58 Request AMARA CULTURE-STOOL (52698)Indication: Diarrhea On: :58 Request METABOLIC PANEL, COMPREHENSIVE (69592)Indication: SOB (shortness of breath) On: 4-Xlt-960895:20 Request D-Dimer (25183)Indication: SOB (shortness of breath) On: 9-Drr-282626:19 Request Comments: STAT-if positive please send for CTA STAT. 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) On: 94-Ekt-394189:41 Request CBC W/AUTO DIFF WBC (13622)Indication: Impaired fasting glucose On: 37-Yzz-650085:58 Request HGB A1C (24990)Indication: Impaired fasting glucose On: 28-Ptt-345654:56 Request METABOLIC PANEL, COMPREHENSIVE (69958)Indication: Impaired fasting glucose On: 28-Vut-330034:56 Request LIPID PANEL (23964)Indication: Impaired fasting glucose On: 26-Qox-865214:56 Request CBC W/AUTO DIFF WBC (57271)Indication: Acute sinusitis On: 1-Aly-620393:06 Request METABOLIC PANEL, COMPREHENSIVE (93112)Indication: FAMILY HISTORY OF DIABETES MELLITUS On: 0-Xmn-456436:06 Request LIPID PANEL (63755)Indication: Family history of ischemic heart disease On: 0-Yoj-075766:06 Request GLUCOSE TOLERANCE TEST (GTT) 5 hour (90651)Indication: Vertigo On: 7-Wcg-390008:30 Request Rapid Strep Test, Office (17999)Indication: Pharyngitis, acute On: 26-Kyd-036669:22 Request Metabolic Panel, Comprehensive (70671)Indication: Abnormal blood chemistry On: 07-Alz-433622:53 Request Planned Encounters Medical; [facility] Review Results - On: 22-Apr-2018 15:15 [facility] Fast DO, Nette A Fast DO, Nette A Medical; [facility] Pre Wellness Exam (DF Nurse) - On: 29-Apr-2018 9:00 [facility] NURSE, DF Medical; [facility] Wellness Exam (Doctor) - On: 10-Jun-2018 13:30 [facility] Fast DO, Nette A Fast DO, Nette A Planned Procedures Echo CompleteBy: Fast DO, Nette A On: 05-Apr-2018 Intent Fast DO, Nette A PA AND LATERAL CXR (39532)By: Fast On: 05-Apr-2018 Intent DO, Nette A Fast DO, Nette A PFT - Before and After SpiroBy: On: 05-Apr-2018 Intent Fast DO, Nette A Fast DO, Nette A Spirometry (30412)By: Fast DO, On: 05-Apr-2018 Intent Netet A Fast DO, Nette A Comments: good effor tand curv e normal ELECTROCARDIOGRAM, COMPLETE (ECG) On: 05-Apr-2018 Intent (91514)By: Fast DO, Nette A Fast Comments: ekg showed normal sinus rhythym, normal axis, no acute st/t wave changes irbb DO, Nette A ELECTROCARDIOGRAM, COMPLETE (ECG) On: 29-Aug-2017 Intent (72953)By: Fast DO, Nette A Fast Comments: ekg showed normal sinus rhythym, normal axis, no acute st/t wave changes rsr DO, Nette A COMPUTED TOMOGRAPHY ANGIOGRAPHY OF On: 20-Aug-2017 Intent CHEST WITH CONTRAST FOR PULMONARY Comments: STAT if elevated D-DIMER Please call:[phone] EMBOLUS (58171)By: Tracie Alves Ultrasound - ThyroidBy: Fast DO, On: 04-Jun-2017 Intent Nette A Fast DO, Nette A Ultrasound - ThyroidBy: Fast DO, On: 29-Oct-2015 Intent Nette A Fast DO, Nette A Radiology - Knee - Right - Weight On: 29-Oct-2015 Intent BearingBy: Fast DO, Nette A Fast Comments: with sunrise view of patella-- call results DO Nette A Holter Moniter (65608)By: Kandy On: 24-May-2012 Intent Felicia RAMIRES EKG (90336)By: Kandy FILM COMPOSER Felicia Davis On: 24-May-2012 Intent Echo CompleteBy: Kandy Felicia RAMIRES On: 24-May-2012 Intent FLU VAC, SPLIT, >3 YEARS, INTRAMUSC On: 05-Apr-2012 Intent (62751)By: Sangita Gil DO Comments: Lot:[id number]:6.30.13Dose:0.5mLRoute:IMSite:L DltdGiven By:YUMIKO signed IMMUNIZ ADMNIN, 1 VAC, SNGL/COMBO On: 05-Apr-2012 Intent (03444)By: Sangita Gil DO Eprescribed prescriptions On: 09-Jan-2012 Intent (G8553)By: Kennedi Jim Phenergan Injection, up to 50 mg On: 12-Jul-2011 Intent (J2550)By: Tracie Barnett LPN Comments: 25mg of Phenergan given in left glutus wendy. Pt tolerated welllot #[id number] exp 11/29 IV Needle placement (69992)By: On: 12-Jul-2011 Intent Tracie Barnett LPN Comments: 22 g iv placed in rt arm . Pt tolerated well. INFUSION, NORMAL SALINE SOLUTION , On: 12-Jul-2011 Intent 250 CC (Special Coverage Instructions Apply. See MCM: 2049) ([id number])By: Tracie Barnett LPN IV Infusion ([id number])By: Ericka On: 12-Jul-2011 Intent Tracie OLGUIN TDAP VACCINE >7 IM ([id number])By: On: 28-Apr-2011 Intent Kennedi Jim Comments: Lot #[id number]-left deltoidgiven by: Amy Alegria LPN FLU VAC, SPLIT, >3 YEARS, INTRAMUSC On: 28-Apr-2011 Intent ([id number])By: Kennedi Jim Comments: didnt get this year CT - Abdomen & PelvisBy: Kandy RAMIRES, On: 07-Jan-2009 Intent Felicia Davis Comments: ? gallbladder ? appendixcall wet read to me Ultrasound - PelvisBy: Fast DO, On: 25-Aug-2008 Intent Nette A Fast DO, Nette A UGI (With air contrast if On: 06-Jul-2008 Intent necessary)By: Sierra COOMBS, Mayuri Wheeler Planned Medications INFUSION, NORMAL SALINE SOLUTION , 250 CC Ordered: 12-Jul-2011 Pending Tracie Barnett LPN Phenergan 50 MG/ML Injection Solution Ordered: 12-Jul-2011 Pending Tracie Barnett LPN Instructions Name Dates Details BMI 29.0-29.9,adult : How to access health information online Indication: BMI 29.0-29.9,adult BMI 29.0-29.9,adult : How to access health information online - Detail Indication: BMI 29.0-29.9,adult BMI 29.0-29.9,adult : Patient Instructions Indication: BMI 29.0-29.9,adult [facility] EXAM : How to access health information online Indication: [facility] WELLNESS EXAM [facility] EXAM : How to access health information online - Detail Indication: [facility] WELLNESS EXAM [facility] EXAM : Patient Instructions Indication: [facility]LLNESS EXAM BMI 29.0-29.9,adult : How to access health information online Indication: BMI 29.0-29.9,adult BMI 29.0-29.9,adult : How to access health information online - Detail Indication: BMI 29.0-29.9,adult Chest congestion : Patient Instructions Indication: Chest congestion BMI 29.0-29.9,adult : How to access health information online Indication: BMI 29.0-29.9,adult BMI 29.0-29.9,adult : How to access health information online - Detail Indication: BMI 29.0-29.9,adult BMI 29.0-29.9,adult : Patient Instructions Indication: BMI 29.0-29.9,adult Non-smoker : How to access health information online Indication: Non-smoker Non-smoker : How to access health information online - Detail Indication: Non-smoker Non-smoker : Patient Instructions Indication: Non-smoker Impaired fasting glucose : Patient Instructions Indication: Impaired fasting glucose Impaired fasting glucose : How to access health information online Indication: Impaired fasting glucose Impaired fasting glucose : How to access health information online - Detail Indication: Impaired fasting glucose Impaired fasting glucose : Patient Instructions Indication: Impaired fasting glucose Physical exam, routine (Renamed from Encounter for routine history and physical examination) : How to access health information online Indication: Physical exam, routine (Renamed from Encounter for routine history and physical examination) Physical exam, routine (Renamed from Encounter for routine history and physical examination) : How to access health information online - Detail Indication: Physical exam, routine (Renamed from Encounter for routine history and physical examination) Physical exam, routine (Renamed from Encounter for routine history and physical examination) : Patient Instructions Indication: Physical exam, routine (Renamed from Encounter for routine history and physical examination) Thrombophilia : Patient Instructions Indication: Thrombophilia Otalgia, unspecified ear : Patient Instructions Indication: Otalgia, unspecified ear Bronchitis, acute : Patient Instructions Indication: Bronchitis, acute Encounters Office Visit On: 05-Apr-2018 14:02 Encounter Reason: Shortness of Breath - Symptoms include dyspnea, exercise intolerance (during intense workouts, not every time though), lightheadedness (was doing squats and bent down and when she came back up she got l End: 07-Apr-2018 18:44 ightheaded. Exercise was not new for her) and chest tightness, while symptoms do not include palpitations, choking sensation, cough or wheezing. Onset was month(s) ago (came in over the summer with some thing similiar and was given prednisone which helped but noticed 1 month ago it happening again). The patient is not currently being treated for this problem. Note for Shortness of breath: sometimes n otices at rest and sometimes with exertion- feels something in chest - not stabbing- but tight in chest- she had this in summer and prednisone helped- she notes this after workout- no cough or wheeze- no fever -not to jaw arm or back Encounter Diagnosis: Non-smoker, BMI 29.0-29.9,adult, Shortness of breath, Prothrombin gene mutation, Family history of ischemic heart disease (V17.3) [facility] Office Visit On: 31-Dec-2017 13:33 Encounter Diagnosis: Allergic rhinitis End: 31-Dec-2017 13:35 [facility] Office Visit On: 29-Aug-2017 13:22 Encounter Reason: Physical female exam - General health: feels well with minor complaints (has a history of diarrhea. Will get after eating a lot, will maybe have about 2-3 days a aweek where she doesn't have diarrhea. W End: 30-Sep-2017 22:33 ill happen about 30 mins after eating.), has decreased energy level and is sleeping well. The patient's appetite is normal. Nutrition: appropriate balanced diet. Exercises 5 days per week. Sleeps on [address] [place] 8 hours per night. Elimination problems include diarrhea. Safety measures include appropriate use of safety belts and home smoke detectors , but do not include appropriate use of helmets, counselin g regarding safe sex/HIV or counseling regarding substance abuse. There are no current emotional problems. screening, complete skin exam (06/2015) and screening, Pap smear (2017). Note for Physical exam : no chest pain feels like cant get deep breath- not wheeze- if doing hard linda workout- gets sob- didnt get ddimer or ct - no cough- last travel may- has tried to figure out what foods givign her di arrhea- been going for years getting worse no blood- solid maybe one day a week- no abd pain- - usually diarrhea half hour after eats - no bloating- taking probiotics - not helpingEncounter Diagnosis: Non-smoker, BMI 29.0-29.9,adult, [facility] WELLNESS EXAM, Diarrhea, Chest congestion, Impaired fasting glucose, Hyperlipidemia [facility] Office Visit On: 20-Aug-2017 9:23 Encounter Reason: Cough - Symptoms include cough, wheezing (exercising) and stuffy nose. The cough is described as loose and productive. Cough onset was 4 week(s) ago. Associated symptoms include postnasal drainage and h End: 20-Aug-2017 10:47 eadache (sinus pressure). Current treatment includes nonsteroidal anti-inflammatory drugs and antihistamines (zyrtec). Note for Cough: Symptoms started about 3-4 weeks ago-went to 6th grade camp and r ode on bus for 1 hr and 45 min there and back. Got home from camp and started having cough, nasal drainage-yellow when able to get it out, sinus pressure headaches, ear pressure, SOB-unable to catch arian ath while working out or taking a deep breath, has coughing fits when lying down. ??No fever or chills, CP. Has taken zyrtec, aleve cold and sinus, nasal spray- nothing has worked. History of clotting disorder.Encounter Diagnosis: Non-smoker, BMI 29.0-29.9,adult, SOB (shortness of breath), Chest congestion, Post-nasal drainage, Acute sinusitis (461.9) [facility] Office Visit On: 04-Jun-2017 15:51 Encounter Reason: Follow up for chronic medical issues - The patient feels well with no complaints, has good energy level and is sleeping well. Patient has been compliant with instructions. Current medication use: no marcia End: 04-Jun-2017 21:36 e effects, compliant with dosing regimen and considered effective by patient. Patient sleeps 6 hours per night. Impact of disease: no overall impact. Nutrition: balanced diet. The medical issues the pat ient is following up for include All identified problems below, gastric reflux and other (anxiety). 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 Patient has been compliant with instructions. Current medication use: no marcia End: 28-Feb-2016 11:13 e effects, compliant with dosing regimen and considered effective by patient. Patient sleeps 6 hours per night. Nutrition: balanced diet. The medical issues the patient is following up for include All i dentified problems below, gastric reflux and other (anxiety). Note for Follow up for chronic medical issues: doing well weight down and working out and watchign didet never took metformin - sugar norm al ldl up some so reviewed high fat/chol foods- and no rotuine gerd and knee pain gone- bp is good, [ADDITIONAL REASON] Follow up tests - Diagnostic tests include other (labs). Date: (02/18/16). Encounter Diagnosis: Non-smoker, BMI 28.0-28.9,adult, Impaired fasting glucose, Gastroesophageal reflux disease without esophagitis, Need for prophylactic vaccination and inoculation against influenza [facility] Office Visit On: 18-Nov-2015 20:37 Encounter Diagnosis: Impaired fasting glucose End: 18-Nov-2015 20:39 [facility] Office Visit On: 29-Oct-2015 10:15 Encounter Reason: Physical female exam - General health: feels well with no complaints, has good energy level and is sleeping well. Nutrition: appropriate balanced diet. Exercises 5 days per week. Sleeps on average 7 wil End: 01-Nov-2015 12:02 rs per night. Normal bowel and bladder habits. Safety measures include appropriate use of safety belts and home smoke detectors , but do not include appropriate use of helmets, counseling regarding safe sex/HIV or counseling regarding substance abuse. There are no current emotional problems. screening, complete skin exam (06/2015) and screening, Pap smear (2015). Note for Physical exam: SAW [place] IN JULY AND GAVE HER ORDER for mammo, [ADDITIONAL REASON] Knee Pain - Note for Knee pain: right knee pain just started to day woke up hurts to walk has been working out but didnt tweek it- hurts in joint - Encounter Diagnosis: [facility]LLNESS EXAM, SCREENING, Impaired fasting glucose, Acute pain of right knee, Thyromegaly (Renamed from Goiter), Family history of ischemic heart disease (V17.3) [facility] Office Visit On: 17-Sep-2015 10:40 Encounter Reason: Follow up for chronic medical issues - The patient feels well with minor complaints (insomnia), has good energy level and is sleeping poorly (cant fall asleep). Patient has been compliant with instructi End: 21-Sep-2015 12:15 ons. Current medication use: no side effects, compliant with dosing regimen and considered effective by patient. Patient sleeps 5 hours per night. Nutrition: balanced diet. The medical issues the patien t is following up for include All identified problems below, gastric reflux and other (anxiety). Note for Follow up for chronic medical issues: never took cymbalta didnt want to - she still not sleeping well- she thinks exercise helps, [ADDITIONAL REASON] Sleep Disturbance - The onset of the sleep disturbance has been gradual and has been occurring in a persistent pattern for years. The course has been recurrent. The sleep disturbanc e is described as moderate. 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 The symptoms have been associated with tried benadryl and tried OTC meds, whil e the symptoms have not been associated with caffiene use daily. Encounter Diagnosis: Impaired fasting glucose, Sleep disorder, Other and unspecified coagulation defects (286.9) [facility] Office Visit On: 04-Jun-2015 7:46 Encounter Reason: Physical female exam - General health: feels well with no complaints, has good energy level and is sleeping well (sometimes cant shut her mind down). The patient's appetite is normal. Nutrition: normal/ End: 06-Jun-2015 20:22 adequate. Exercises 0 days per week. Sleeps on average 6 hours per night. Normal bowel and bladder habits. Safety measures include appropriate use of safety belts and home smoke detectors. There are no current emotional problems. screening, Pap smear (not sure when last but has one scheduled for july 2015) and screening, visual acuity (2015). Note for Physical exam: has appt for pap in july - hasnt [facility] mammo- having issues with falling aslpee and brain cant shut down-has some anxity no depression - not exercising routinely but trying to get back into it Encounter Diagnosis: Physical exam, routine (Renamed from Encounter for routine history and physical examination), Family history of ischemic heart disease (V17.3), FAMILY HISTORY OF DIABETES MELLITUS, Anxiety (300.00), Prothrombin gene mutation [facility] Office Visit On: 22-May-2014 13:20 Encounter Reason: Follow up for chronic medical issues - The patient feels well with minor complaints (going to [place] and needs treated for dvt potential and cold sx), has good energy level and is sleeping well. Donald End: 24-May-2014 21:00 t medication use: no side effects, compliant with dosing regimen and considered effective by patient. Patient sleeps 7 hours per night. Nutrition: balanced diet. The medical issues the patient is follow ing up for include All identified problems below, gastric reflux and other (anxiety). Note for Follow up for chronic medical issues: driving on vacation - to [place]- , [ADDITIONAL REASON] Cold Symptoms - Symptoms include facial pressure, facial pain and headache, while symptoms do not include nasal congestion, runny nose, sore throat, dry cough or productive cough. O nset was gradual 4 week(s) ago. The symptoms occur constantly. The patient describes this as improving. Associated symptoms do not include ear pain, wheezing, shortness of breath, nausea, vomiting, diar barbara or fever. The patient is not currently being treated for this problem. Encounter Diagnosis: Thrombophilia, Acute sinusitis (461.9), FAMILY HISTORY OF DIABETES MELLITUS, Family history of ischemic heart disease (V17.3) [facility] Office Visit On: 29-Jul-2013 11:06 Encounter Reason: Follow up for chronic medical issues - The patient feels well with no complaints, has good energy level and is sleeping well. Patient has been compliant with instructions. Current medication use: no marcia End: 29-Jul-2013 11:24 e effects, compliant with dosing regimen and considered effective by patient. Patient sleeps 8 hours per night. Nutrition: balanced diet. The medical issues the patient is following up for include All i dentified problems below, gastric reflux and other (anxiety).Encounter Diagnosis: Allergic rhinitis, Itchy eyes [facility] Office Visit On: 20-Feb-2013 12:20 Encounter Diagnosis: ACUTE PHARYNGITIS (462.) End: 20-Feb-2013 12:21 [facility] Office Visit On: 07-Oct-2012 17:56 Encounter Diagnosis: Prothrombin mutation (289.81), Compound heterozygous MTHFR mutation [id number] (270.4) End: 07-Oct-2012 17:59 [facility] Office Visit On: 24-May-2012 12:07 Encounter Reason: Dizziness/ - The onset of the dizziness/ has been sudden and has been occurring in an intermittent pattern for weeks. The course has been increasing. The dizziness/ is characterized as lightheadedness. End: 24-May-2012 15:23 The symptoms have been associated with nausea, while the symptoms have not been associated with anxiety, headache, loss of balance, paresthesia or tinnitus.Encounter Diagnosis: Vertigo (780.4) [facility] Office Visit On: 05-Apr-2012 13:50 Encounter Reason: Cold Symptoms - The last clinic visit was 3 day(s) ago. No changes in management were made at the last visit. Symptoms include facial pain (jaw pain in front of right ear. I have more sharp pain in righ End: 05-Apr-2012 15:57 t and sometimes in left.). 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 The patient describes this as moderate in severity and unchanged. Symptoms ar e exacerbated by cold air. Associated symptoms include plugged ear(s) and ear pain. Current treatment includes rest and nonsteroidal anti-inflammatory drugs.Encounter Diagnosis: Eustachian Tube Dysfunction (381.81), Otalgia, Unspecified (388.70), Need for prophylactic vaccination and inoculation against influenza (V04.81) [facility] Phone Encounter On: 05-Mar-2012 8:53 Encounter Diagnosis: Valery vaginitis (112.1) End: 05-Mar-2012 8:55 [facility] Office Visit On: 09-Jan-2012 14:10 Encounter Reason: Cough - The onset of the cough has been 3 weeks ago. The cough is characterized as productive of mucopurulent sputum. The amount of sputum produced is less than a half a cup per day. The cough occurs a End: 09-Jan-2012 14:34 ll the time. The symptoms are aggravated by supine posture. The symptoms have been associated with headache, hoarseness and wheezing, while the symptoms have not been associated with dyspnea, fever, run ny nose or sore throat. the color of the sputum is greenish and yellowish. Note for Cough : taking old cough medicine of her daughters- not helping no feverEncounter Diagnosis: SYMPTOM, COUGH (786.2), Bronchitis,Acute (466.0), Acute sinusitis (461.9) [facility] Office Visit On: 12-Jul-2011 13:07 Encounter Reason: Vomiting - Symptoms include nausea, vomiting and abdominal pain, while symptoms do not include chest pain. Emesis is characterized as undigested food and bilious. Onset was sudden 4 day(s) ago. The symp End: 21-Jul-2011 9:07 toms occur frequently. The patient describes this as moderate in severity (to severe) and unchanged. Associated symptoms include fatigue, weakness, weight loss and diarrhea, while associated symptoms do not include fever, chills, headache or constipation. The patient is not currently being treated for this problem. Note for Vomiting: vomit or diarrhea every s20 min since sunday- - no blood - crampin g abd- dizzy and cant keep anything down- every one in familyhad same thingEncounter Diagnosis: Dehydration(276.51), Gastroenteritis (009.0) (Renamed from Infectious gastroenteritis (009.0)) [facility] Phone Encounter On: 06-Jul-2011 12:43 Encounter Diagnosis: Unspecified Diagnosis End: 06-Jul-2011 12:45 [facility] Office Visit On: 28-Apr-2011 10:01 Encounter Reason: Follow up for chronic medical issues - The patient feels well with minor complaints (sore throat), has good energy level and is sleeping well. Patient has been compliant with instructions. Current medic End: 30-Apr-2011 8:59 ation use: no side effects and compliant with dosing regimen. Patient sleeps 6 hours per night. Nutrition: balanced diet and no supplemental vitamins & iron. The medical issues the patient is follow ing up for include All identified problems below, gastric reflux and other (anxiety, thrombophilia, headaches, familyb hx of heart dz). weight : (143). Note for Follow up for chronic medical issues: c hronic gerd she does fair amount of caffeine and we discussed this as problem needs to take meds routinely in order to avoid gerd and no dysphagia, [ADDITIONAL REASON] Sore Throat - Symptoms include sore throat, while symptoms do not include dyspha cyndee, nasal congestion, postnasal drainage, swollen glands, fever or chills. The symptoms are left sided. The pain radiates to the left ear. The patient describes the pain as sharp and stinging. Onset wa s sudden 2 day(s) ago. The symptoms occur constantly. The patient describes this as moderate in severity and worsening. Associated symptoms include ear pain, while associated symptoms do not include hea dache, hoarseness or nausea. The patient is not currently being treated for this problem. Note for Sore Throat: got exposed to strept recently Encounter Diagnosis: Need for prophylactic vaccination and inoculation against influenza (V04.81), ACUTE PHARYNGITIS (462.), Gerd (530.81), GESTATIONAL DIABETES MELLITUS, NOS (648.80), Family history of ischemic heart disease (V17.3), Thrombophilia [facility] Phone Encounter On: 18-Nov-2010 15:01 Encounter Diagnosis: Unspecified Diagnosis End: 18-Nov-2010 15:02 [facility] Phone Encounter On: 17-Nov-2010 11:16 Encounter Diagnosis: ACUTE PHARYNGITIS (462.) End: 17-Nov-2010 11:18 [facility] Office Visit On: 11-Oct-2010 14:15 Encounter Reason: irritablility - Denies feeling sad/depression, anxiety, tearfulness and sleep disturbancesStates that she sneaks lunesta to sleep sometimesHas been ongoing all summer.-having trouble falling asleep and End: 11-Oct-2010 15:22 trouble shutting down- 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 The course has been constant. The dizziness/ is characterized as lightheadedness. End: 08-Jul-2010 11:02 The symptoms have been associated with headache and nausea ( if i get a big spell then I get nauseous ), while the symptoms have not been associated with diplopia, fever, loss of balance, sweating or tinnitus.Encounter Diagnosis: Vertigo (780.4), Headache (784.0) [facility] Phone Encounter On: 31-May-2010 11:56 Encounter Diagnosis: Unspecified Diagnosis End: 31-May-2010 11:58 [facility] Historical Summary On: 01-Feb-2009 8:49 [facility] End: 01-Feb-2009 8:50 Annotation/Addendum On: 11-Jan-2009 12:52 Encounter Diagnosis: Abnormal blood chemistry (790.6) End: 11-Jan-2009 12:53 [facility] Office Visit On: 07-Jan-2009 8:09 Encounter Reason: Abdominal pain - The onset of the pain has been sudden and has been occurring in a persistent pattern for 2 days. The course has been increasing. The pain is described as a severe sharp pain ,crampy ,co End: 07-Jan-2009 8:56 licky ,dull ache and pressure sensation. The pain is described as being located in the right upper quadrant. The pain radiates to the back. The symptoms are aggravated by meals (1/2 to 1 hour after eati ng) ,meals (2 to 4 hours after eating) and lying down. The symptoms have no relieving factors. The symptoms have been associated with bloating ,nausea and vomiting. Encounter Diagnosis: Abdominal Pain,RLQ (789.03) [facility] Historical Summary On: 28-Sep-2008 10:52 [facility] End: 28-Sep-2008 10:53 Office Visit On: 25-Aug-2008 12:56 Encounter Reason: new patient female physical - Last seen between 1-3 months ago. General health: feels well with minor complaints (heartburn) ,has good energy level and is sleeping well. The patient's appetite is increa End: 26-Aug-2008 6:41 sed. Nutrition: normal/adequate. Exercises 0 days per week. Sleeps on average 8 hours per night. Normal bowel and bladder habits. Safety measures include appropriate use of safety belts and home smoke d etectors. There are no current emotional problems. screening, Pap smear ([facility] September 15, 2008). Note for new patient female physical: she has twins and had to be on lovenox becuase she has thrombophilia- she is unsure of what kind- she will bring in paperwork- -she had fertility the first time- she wasnt ovulate-constant burning in chest- some days worse than others- if e at any spicey thing done for 3 days- red sauce terrible-- it has been a couple years- no dysphagia- zegerid helps some but doesnt take it away- she has pap set up end of the monthEncounter Diagnosis: Gerd (530.81), Thrombophilia, Pelvic pain (625.9) , Family history of ischemic heart disease (V17.3) [facility] Historical Summary On: 07-Jul-2008 8:51 [facility] End: 07-Jul-2008 8:55 Office Visit On: 06-Jul-2008 16:56 Encounter Reason: new patient female physical - Last seen more than 1 year ago. General health: feels well with minor complaints ,has decreased energy level and is sleeping well. The patient's appetite is increased (I errol End: 06-Jul-2008 17:44 ke to eat). Nutrition: appropriate balanced diet. Exercises 0 days per week. Sleeps on average 8 hours per night. Normal bowel and bladder habits. Safety measures include appropriate use of safety belts and home smoke detectors. There are no current emotional problems. screening, Pap smear (July 2007). 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
--- OUTSIDE RECORDS SUMMARY | 2018-06-10 07:32 | XMS RPT_ITS | Continuity of Care Document ---
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.4) Status: Active Deliveries (Parity) Comments: twins [...] Status: Active Prothrombin gene mutation (D68.59, 289.81) Comments: traveling so prevention Status: Active SCREENING Status: Active Shortness of breath (R06.02, 786.05) Status: Active Sleep disorder (G47.9, 780.50) Status: Active SOB (shortness of breath) (R06.02, 786.05) Status: Active Thrombophilia Status: Active 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, 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 Tonsillectomy Status: Active Medications Name Dates Details Fluticasone Propionate 50 MCG/ACT Nasal Suspension 2 (two) Puff daily for 0 days Quantity: 1 {Inhaler} Refills: 5 Ordered:31-Dec-2017 Fast DO, Nette AFast DO Nette A Start : 31-Dec-2017 Active PredniSONE 10 MG Oral Tablet 3 (three) Tablet in am for 3 days 2 in am for 3 days 1in am for 3 days for 0 days Quantity: 18 {Tablet} Refills: 0 Ordered:05-Apr-2018 Fast DO, Nette AFast DO, Nette A Start : 05-Apr-2018 Active ANTIVERT, 12.5MG [...] ADENOMYOSIS- 2012 Tonsillectomy Completed Date Value Details 20-Jun-2017 Thyroid Result: Comments: See Note; NOTES: [facility] Imaging Services [address] [place] [address] Thyroid MR#: [id number] Acct: [id number] Name: KYLE FARMER Rep #: [id number] : [birth year] F 42 From: Shahid Coyle MD PCP: Nette Snow DO Status: REG CLI Study: Thyroid Date of Exam: 06/20/17 Exam# [id number] Ordering Dr: Nette Snow DO STUDY: THYROID [...] Service support , CC: Nette Snow DO Legal Paraprofessional: Signed 01-May-2017 SCREENING MAMM (CAD), BILAT Result: Comments: See Note; NOTES: [facility] Imaging Services [address] [place] [address] SCREENING MAMM (CAD), BILAT MR#: [id number] Acct: [id number] Name: KYLE FARMER Rep #: [id number] : 1975 F 42 From: Esteban Ashley MD PCP: Nette Snow DO Status: REG CLI Study: SCREENING MAMM (CAD), BILAT Date of Exam: 05/01/17 Exam# [id number] Ordering Dr: Zayra Virk MD MAMMOGRAPHY - [...] delay biopsy of a clinically suspicious abnormality. UT9040 Electronically Signed: Esteban Ashley MD at 13:43 EST Tel [phone], Service support , CC: Nette Snow DO; Zayra Virk MD Legal Paraprofessional: Signed 01-Nov-2015 Thyroid Result: Comments: See Note; NOTES: [facility] Imaging Services [address] [place] [address] Verdana 4d Thyroid MR#: [id number] Acct: [id number] Name: KYLE FARMER Rep #: [id number] : 1975 F 40 From: Eduardo Aldana DO PCP: Nette Snow DO Status: REG CLI Study: Thyroid Date of Exam: 11/01/15 Exam# [id number] Ordering Dr: Nette Snow DO STUDY: THYROID [...] at 20:22 EDT Tel , Service support , CC: Nette Snow DO Legal Paraprofessional: Signed 29-Oct-2015 ELECTROCARDIOGRAM, COMPLETE (ECG) (19727) Comments: ekg showed normal sinus rhythym, normal axis, no acute st/t wave changes- sinus marco Result: [MEASUREMENTS ANALYSIS] Date of Test: 10/29/2015 11:03:47; Heart Rate: 58; UT Interval: 168; QRS: 104; QT Interval: 416; Corrected QT Interval (QTc): 413; P Wave [place]: 56; QRS Wave [place]: 30; T Wave [place] : 26; Blood Pressure: 102/62 [ECG DIAGNOSTIC STATEMENTS] Date of Test: 10/29/2015 11:03:47; Summary: Sinus Bradycardia -RSR(V1) -nondiagnostic. 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 Status: Active Smoking Status Name Dates Details Never smoker Vital Signs Date Test Result Details :15 Temperature 98.1 f Comments: Method: Temporal Pulse [...] vitals after 1 liter of NS102/60 pulse 23161/60 pulse 80 BP Systolic 118 mm[Hg] Comments: [...] kg/m2 Body Surface Area Calculated 1.67 m2 18-Tca-544481:10 Temperature 96.7 f Comments: Method: Oral Pulse [...] 0.00 cm Results Date Description Value Details :58 Thyroxine (T4) Free, Direct, Comments: PATIENT WAS FASTINGPERFORMED BY: [facility] Dhsiqj5703 [facility] [id number]; can review on 08/29 S T4,Free(Direct) 0.97 ng/dL Range: 0.82-1.77 (Normal) Triiodothyronine,Free,Seru 2.8 pg/mL (Normal) Comments: PATIENT WAS FASTINGPERFORMED BY: [facility]KF[facility]6370 [facility] [id number] 0:58 m Range: 2.0-4.4 TSH 1.540 {uIU/mL} Comments: PATIENT WAS FASTINGPERFORMED BY: stickKCassidy V[place] 6303370 [facility] [id number] 0:58 (Normal) Range: 0.450-4.500 06-Tuj-273909:17 Blood Glucose , Office (28589) Blood Glucose , Office 96 (Normal) 32-Ypu-095478:17 HgA1C , Office (18720) HgA1C , Office 5.1 % (Normal) Range: 4.6 - 7.1 :06 LIPOPROTEIN, BLD, BY NMR Comments: PATIENT WAS FASTINGPERFORMED BY: [place] [address] [facility] [id number] BY: [facility]6370 [facility] [id number] (25603) LP-IR Score <25 (Normal) Comments: INSULIN RESISTANCE MARKER <--Insulin Sensitive Insulin Resistant--> Percentile in Reference PopulationInsulin Resistance ScoreLP-IR Score Low 25th 50th 75th High <27 27 45 63 >63LP-IR Score is inaccurate if patient is non-fasting. .The LP-IR score is a laboratory developed i [facility] that has beenassociated with insulin resistance and [...] were developed and their performance characteristicsdetermined by [employer]. These assays have not been cleared by [...] METABOLIC PANEL, Comments: PATIENT WAS FASTINGPERFORMED BY: LabCo[address] [id number] BY: [facility] Yvktav6756 [facility] [id number] COMPREHENSIVE (43006) ALT (SGPT) 17 [iU]/L (Normal) Range: 0-32 [...] MICROALBUMIN: CREATININE Comments: PATIENT WAS FASTINGPERFORMED BY: BN [facility] [address] [id number] BY: CB [facility] Ijzles7686 [facility] [id number] RATIO (91746) AND (47118) Microalb/Creat Ratio 16.1 {mg/g_creat} (Normal) Range: 0.0-30.0 Microalbumin, Urine 38.3 ug/mL (Normal) Creatinine, Urine 237.7 mg/dL (Normal) :06 HGB A1C (99934) Comments: PATIENT WAS FASTINGPERFORMED BY: stickK[address] [id number] BY: [place] 1811170 [facility] [id number] Hemoglobin A1c 5.6 % (Normal) Range: 4.8-5.6 Comments: . Pre-diabetes: 5.7 - 6.4 Diabetes: >6.4 Glycemic control for adults with diabetes: <7.0 :06 T4, FREE (THYROXINE) Comments: PATIENT WAS FASTINGPERFORMED BY: stickK[address] [id number] BY: [facility] CenterWIDIPThomas V[place] 1780670 [facility] [id number] (87584) T4,Free(Direct) 1.08 ng/dL (Normal) Range: 0.82-1.77 :06 T3, FREE (TRIDOTHYRONINE) Comments: PATIENT WAS FASTINGPERFORMED BY: stickK[address] [id number] BY: [place] 1811170 [facility] [id number] (94474) Triiodothyronine,Free,Serum 3.1 pg/mL (Normal) Range: 2.0-4.4 :06 RUBEOLA IgG (55389) Comments: PATIENT WAS FASTINGPERFORMED BY: stickK[address] [id number] BY: [place] 1811170 [facility] [id number] Rubeola Ab, IgG >300.0 AU/mL (Normal) Comments: Negative <25.0 Equivocal 25.0 - 29.9 Positive >29.9 Presence of antibodies to Rubeola is presumptive evidence of immunity except when acute infection is suspected. :06 RUBELLA IgG (54669) Comments: PATIENT WAS FASTINGPERFORMED BY: SnapjoyDylan [place] 354007 [facility] [id number] BY: [facility]6370 [facility] [id number] Rubella Antibodies, IgG 29.30 {index} (Normal) Comments: Non-immune <0.90 Equivocal 0.90 - 0.99 Immune >0.99 :06 MUMPS IgG (73230) Comments: PATIENT WAS FASTINGPERFORMED BY: SnapjoyDylan [place] 354007 [facility] [id number] BY: stickKCassidy [place] 6303370 [facility] [id number] Mumps Abs, IgG 285.0 AU/mL (Normal) Comments: Negative <9.0 Equivocal 9.0 - 10.9 Positive >10.9 A positive result genera lly indicates past exposure to Mumps virus or previous vaccination. :47 HgA1C , Office (70976) HgA1C , Office 5.3 % (Normal) Range: 4.6 - 7.1 :36 CBC W/AUTO DIFF WBC Comments: PATIENT WAS FASTINGPERFORMED BY: stickKCassidy [place] 6303370 [facility] [id number] Information: [id number] (48668) Immature Grans (Abs) 0.0 {x10E3/uL} (Normal) Range: [...] 3.77-5.28 WBC 7.4 {x10E3/uL} (Normal) Range: 3.4-10.8 :36 METABOLIC PANEL, COMPREHENSIVE Comments: PATIENT WAS FASTINGPERFORMED BY: [facility] [id number] (26024) ALT (SGPT) 15 [iU]/L (Normal) Range: 0-32 [...] Glucose, Serum 100 mg/dL (Abnormal) Range: 65-99 99-Rlk-77823:36 LIPID PANEL (51142) Comments: PATIENT WAS FASTINGPERFORMED BY: [employer] Branch [facility] [id number] LDL/HDL Ratio 1.8 {ratio_units} (Normal) Range: 0.0-3.2 [...] Cholesterol, Total 180 mg/dL (Normal) Range: 100-199 88-Mgf-007712:58 Glucose Tolerance (6 Sp Comments: PATIENT WAS FASTINGPERFORMED BY: [employer]70 [facility] [id number] Information: 75G Blood) Glucose, 5 hour 70 mg/dL (Normal) Range: 65-109 Glucose, 3 hour 89 mg/dL (Normal) Range: 65-109 Glucose, 4 hour 102 mg/dL (Normal) Range: 65-109 Glucose, 2 hour 122 mg/dL (Normal) Range: 65-139 Glucose, 1 hour 129 mg/dL (Normal) Range: 65-199 Glucose, Fasting 97 mg/dL (Normal) Range: 65-99 :01 TSH (THYROID STIMULATING Comments: PATIENT WAS FASTINGPERFORMED BY: [employer]70 [facility] [id number] HORMONE) (44943) TSH 1.750 {uIU/mL} (Normal) Range: 0.450-4.500 :01 CBC with manual diff Comments: PATIENT WAS FASTINGPERFORMED BY: KHANH [employer] [facility] [id number] Information: [id number] (14468) Immature Grans (Abs) 0.0 {x10E3/uL} (Normal) Range: [...] 3.77-5.28 WBC 6.3 {x10E3/uL} (Normal) Range: 4.0-10.5 :01 Metabolic Panel, Comprehensive Comments: PATIENT WAS FASTINGPERFORMED BY: KHANH [employer] [facility] [id number] (16360) ALT (SGPT) 11 [iU]/L (Normal) Range: 0-32 [...] Glucose, Serum 98 mg/dL (Normal) Range: 65-99 07-Ene-844727:48 METABOLIC PANEL, COMPREHENSIVE Comments: PATIENT NOT FASTINGPERFORMED BY: [facility] Rjxibb6107 [facility] [id number] (65418) ALT (SGPT) 36 [iU]/L (Normal) Range: 0-40 [...] Glucose, Serum 93 mg/dL (Normal) Range: 65-99 61-Oin-820774:48 CBC WITH MANUAL DIFF Comments: PATIENT NOT FASTINGPERFORMED BY: [facility]Cross[facility] Bxigom6282 [facility] [id number] Information: [id number] (66938) Immature Grans (Abs) 0.0 {x10E3/uL} (Normal) Range: [...] 3.80-5.10 WBC 6.6 {x10E3/uL} (Normal) Range: 4.0-10.5 63-Gyr-763111:29 LIPID PANEL (51528) Comments: PATIENT WAS FASTINGPERFORMED BY: [employer]6370 [facility] [id number] LDL/HDL Ratio 1.7 {ratio_units} (Normal) Range: 0.0-3.2 [...] MANUAL DIFF Comments: PATIENT WAS FASTINGPERFORMED BY: CrowdfyndSocorro General HospitalGwytfk0507 [facility] [id number] Information: [id number] (85981) Immature Grans (Abs) 0.0 {x10E3/uL} (Normal) Range: [...] 3.80-5.10 WBC 6.1 {x10E3/uL} (Normal) Range: 4.0-10.5 82-Lsk-552883:29 METABOLIC PANEL, COMPREHENSIVE Comments: PATIENT WAS FASTINGPERFORMED BY: LabCoVirtua MarltonMlbtlo7455 [facility] [id number] (56652) ALT (SGPT) 14 [iU]/L (Normal) Range: 0-40 [...] Glucose, Serum 89 mg/dL (Normal) Range: 65-99 19-Ybj-206556:29 MICROALBUMIN: CREATININE RATIO Comments: PATIENT WAS FASTINGPERFORMED BY: LabF[facility]6370 [facility] [id number] (31369) AND (75561) Microalb/Creat Ratio 3.0 {mg/g_creat} (Normal) Range: 0.0-30.0 Microalbumin, Urine 4.4 ug/mL (Normal) Range: 0.0-17.0 Creatinine, Urine 148.6 mg/dL (Normal) Range: 16.0-327.0 72-Gns-177708:29 Hemoglobin Glyclated (HGB A1C) Comments: PATIENT WAS FASTINGPERFORMED BY: stickKFresenius [facility] Care [facility]6370 [facility] [id number] (76685) Hemoglobin A1c 5.5 % (Normal) Range: 4.8-5.6 Comments: . Increased risk for diabetes: 5.7 - 6.4 Diabetes: >6.4 Glycemic control for adults with diabetes: <7.0 70-Lak-252099:31 AMARA CULTURE-OTHER (06584) Comments: PATIENT NOT FASTINGPERFORMED BY: [place] 1811170 [facility] [id number] Information: SRC:THRT [id number] Result 1 RRF (Normal) Comments: Routine respiratory antelmo Upper Respiratory Culture Final report (Normal) 75-Zzb-636322:20 METABOLIC PANEL, Comments: PATIENT NOT FASTINGPERFORMED BY: [facility]6370 [facility] [id number] Information: [id number] COMPREHENSIVE (32307) ALT (SGPT) 15 [iU]/L (Normal) Range: 0-40 [...] Glucose, Serum 89 mg/dL (Normal) Range: 65-99 32-Klz-314701:20 TSH (36845) Comments: PATIENT NOT FASTINGPERFORMED BY: [employer]6370 [facility] [id number] TSH 1.650 {uIU/mL} (Normal) Range: 0.450-4.500 35-Vgr-380393:33 Metabolic Panel, Comprehensive Comments: PATIENT NOT FASTINGPERFORMED BY: [employer]ynd Eklpex4958 [facility] [id number] (26907) ALT (SGPT) 15 [iU]/L (Normal) Range: 0-40 [...] Glucose, Serum 96 mg/dL (Normal) Range: 65-99 78-Omt-804098:33 CBC with manual diff Comments: PATIENT NOT FASTINGPERFORMED BY: [facility] Wkxxgt9830 [facility] [id number] Information: [id number],[id number] (76584) Immature Grans (Abs) 0.0 {x10E3/uL} (Normal) Range: [...] 3.80-5.10 WBC 6.2 {x10E3/uL} (Normal) Range: 4.0-10.5 93-Kdu-590578:33 TSH (43435) Comments: PATIENT NOT FASTINGPERFORMED BY: LabFres[facility]6370 [facility] [id number] TSH 1.810 {uIU/mL} (Normal) Range: 0.450-4.500 00-Tni-74602:03 ABDOMEN/PELVIS WITH CONTRAST Radiology Report See Note (Normal) Comments: Exam Number: [id number] CLINICAL:33-year-old female with right lower quadrant pain. [...] 13:24:43 (EDT). Reported By: NIKOLAS SMART Dr. 02-Vns-98246:38 Urine Test, Office (11097) Urine Test, Office Negative (Normal) 49-Nrm-34200:45 CBC with manual diff (72826) Comments: PATIENT NOT FASTINGClinical Information: [id number] PERFORMED BY: LabF[facility]6370 [facility] [id number] Baso (Absolute) 0.0 {x10E3/uL} (Normal) Range: 0.0-0.2 [...] 11.7-15.0 WBC 9.6 {x10E3/uL} (Normal) Range: 4.0-10.5 :45 Metabolic Panel, Comprehensive Comments: PATIENT NOT FASTINGPERFORMED BY: [facility] Uivrpq9150 [facility] [id number] (68534) A/G Ratio 1.9 (Normal) Range: 1.1-2.5 Albumin, [...] Sodium, Serum 141 mmol/L (Normal) Range: 135-145 27-Dhj-22496:34 Urinalysis, Office (70238) UA - BILIRUBIN Negative (Normal) UA - BLOOD Negative (Normal) UA - GLUCOSE Negative (Normal) UA - KETONES Negative mg/dL (Normal) UA - LEUKOCYTE ESTERASE Negative (Normal) UA - NITRITE Negative (Normal) UA - PH 7.5 (Normal) UA - PROTEIN Negative mg/dL (Normal) UA - SPECIFIC GRAVITY 1.020 (Normal) URINE UROBILINGN KIANA TIMED Normal mg/dL (Normal) 54-Lnb-206683:25 DUPLEX ARTERIAL FLOW, LIMITED Radiology Report See Note (Normal) Comments: Exam Number: [id number] PELVIC ULTRASOUND AND DUPLEX ARTERIAL FLOW, LIMITED [...] is identified. Reported By: NIGEL ALEXANDRE M.D. 51-Qup-511826:54 PELVIC (NON ) Radiology Report See Note (Normal) Comments: Exam Number: [id number] PELVIC ULTRASOUND AND DUPLEX ARTERIAL FLOW, LIMITED [...] is identified. Reported By: NIGEL ALEXANDRE M.D. 5-Epd-623128:0 Lipoprotein (a) 63 mg/dL (Abnormal) Comments: PERFORMED BY: [employer]6370 [facility] [id number] 5 Range: 0-30 Comments: Desirable: <20 Borderline high risk: 20 - 30 High risk: 31 - 50 Very high risk: >50 . Note: Values >30 may indicate independent risk factor for CH D. Significance of high Lp(a) in non-white populations must be evaluated with caution. 93-Ail-653725:50 CBC With Differential/Platelet Comments: PATIENT WAS FASTINGPERFORMED BY: [employer] Gythfr7351 [facility] [id number] Baso (Absolute) 0.0 {x10E3/uL} (Normal) Range: 0.0-0.2 [...] 11.7-15.0 WBC 6.7 {x10E3/uL} (Normal) Range: 4.0-10.5 74-Sst-311532:50 Comp. Metabolic Panel (14) Comments: PATIENT WAS FASTINGPERFORMED BY: LabCoVirtua MarltonKjnjfi3906 [facility] [id number] A/G Ratio 2.0 (Normal) Range: 1.1-2.5 Albumin, [...] Serum 91 mg/dL (Normal) Range: 65-99 If -Rwandan >59 mL/min/1.73 Comments: Note: Persistent reduction for [...] % (Normal) Comments: PATIENT WAS FASTINGPERFORMED BY: [employer] LabBroc[employer]70 [facility] [id number] 5:50 Comments: Diabetic Adult <7.0 Healthy Adult 4.8 - 5.9 (DCCT/NGSP) [place] Diabete s Association's Summary of Glycemic Recommendations for Adults with Diabetes: Hemoglobin A1c <7.0%. More stringent glycemic goals (A1c <6.0%) may furth er reduce complications at the cost of increased risk of hypoglycemia. 74-Gme-062692:50 Lipid Panel With LDL/HDL Comments: PATIENT WAS FASTINGPERFORMED BY: [employer] LabCoMatchbox70 [facility] [id number] Ratio Cholesterol, Total 194 mg/dL (Normal) Range: [...] 2.455 {uIU/mL} Comments: PATIENT WAS FASTINGPERFORMED BY: KHANH [facility] Qecuej3643 [place] [id number] :50 (Normal) Range: 0.450-4.500 Plan of Care [...] *Vertigo Education Indication: Vertigo Planned Observations D-Dimer (28800)Indication: Shortness of breath On: 72-Wtl-675876:52 Request Comments: stat TSH (19480)Indication: Shortness of breath On: 20-Dzl-852423:51 Request CBC W/AUTO DIFF WBC (69809)Indication: Shortness of breath On: 57-Qop-623844:51 Request METABOLIC PANEL, COMPREHENSIVE (15868)Indication: Shortness of breath On: 39-Knp-646934:51 Request HGB A1C (25058)Indication: Impaired fasting glucose On: 46-Zku-589871:17 Request METABOLIC PANEL, COMPREHENSIVE (20034)Indication: Impaired fasting glucose On: 22-Bfz-261649:17 Request LIPID PANEL (14360)Indication: Hyperlipidemia On: 69-Sfl-336962:17 Request Celiac Disease Comphrehensive Profile (00941)Indication: Diarrhea On: 85-Ovr-663159:00 Request OVA & PARASITE DIR SMEAR (55092)Indication: Diarrhea On: :58 Request LEUKOCYTE COUNT, FECAL (55517)Indication: Diarrhea On: :58 Request Clostridium difficile Toxin A+B, EIA (63025)Indication: Diarrhea On: :58 Request AMARA CULTURE-STOOL (35508)Indication: Diarrhea On: :58 Request METABOLIC PANEL, COMPREHENSIVE (15191)Indication: SOB (shortness of breath) On: 7-Vse-288972:20 Request D-Dimer (70105)Indication: SOB (shortness of breath) On: 0-Ueg-599973:19 Request Comments: STAT-if positive please send for CTA STAT. Call [phone] TSH (04207)Indication: Thyromegaly (Renamed from Goiter) On: 43-Yan-755991:41 Request T4, FREE (THYROXINE) (91692)Indication: Thyromegaly (Renamed from Goiter) On: 34-Iyq-013144:41 Request T3, FREE (TRIDOTHYRONINE) (72969)Indication: Thyromegaly (Renamed from Goiter) On: 73-Qia-827958:41 Request CBC W/AUTO DIFF WBC (21039)Indication: Impaired fasting glucose On: 98-Dmk-555249:58 Request HGB A1C (95227)Indication: Impaired fasting glucose On: 39-Mjw-064827:56 Request METABOLIC PANEL, COMPREHENSIVE (40561)Indication: Impaired fasting glucose On: 37-Dpu-031157:56 Request LIPID PANEL (69751)Indication: Impaired fasting glucose On: 45-Efw-421375:56 Request CBC W/AUTO DIFF WBC (52785)Indication: Acute sinusitis On: :06 Request METABOLIC PANEL, COMPREHENSIVE (71897)Indication: FAMILY HISTORY OF DIABETES MELLITUS On: 7-Uos-990400:06 Request LIPID PANEL (23608)Indication: Family history of ischemic heart disease On: 6-Efl-938872:06 Request GLUCOSE TOLERANCE TEST (GTT) 5 hour (65645)Indication: Vertigo On: 1-Ctp-560243:30 Request Rapid Strep Test, Office (61247)Indication: Pharyngitis, acute On: 66-Rys-062898:22 Request Metabolic Panel, Comprehensive (14049)Indication: Abnormal blood chemistry On: 49-Zec-117004:53 Request Planned Encounters Medical; [facility] Review Results [...] DO, Nette A PA AND LATERAL CXR (64412)By: Fast On: 05-Apr-2018 Intent DO, Nette A Fast DO, Nette A PFT - Before and After SpiroBy: On: 05-Apr-2018 Intent Fast DO, Nette A Fast DO, Nette A Spirometry (56817)By: Fast DO, On: 05-Apr-2018 Intent Nette A Fast DO, Nette A Comments: good effor tand curv e normal ELECTROCARDIOGRAM, COMPLETE (ECG) On: 05-Apr-2018 Intent (05815)By: Fast DO, Nette A Fast Comments: ekg showed normal sinus rhythym, normal axis, no acute st/t wave changes irbb DO, Nette A ELECTROCARDIOGRAM, COMPLETE (ECG) On: 29-Aug-2017 Intent (84667)By: Fast DO, Nette A Fast Comments: ekg showed normal sinus rhythym, normal axis, no acute st/t wave changes rsr DO, Nette A COMPUTED TOMOGRAPHY ANGIOGRAPHY OF On: 20-Aug-2017 Intent CHEST WITH CONTRAST FOR PULMONARY Comments: STAT if elevated D-DIMER Please call:[phone] EMBOLUS (20723)By: Tracie Alves Ultrasound - ThyroidBy: Fast DO, On: 04-Jun-2017 Intent Nette A Fast DO, Nette A Ultrasound - ThyroidBy: Fast DO, On: 29-Oct-2015 Intent Nette A Fast DO, Nette A Radiology - Knee - Right - Weight On: 29-Oct-2015 Intent BearingBy: Fast DO, Nette A Fast Comments: with sunrise view of patella-- call results DO, Nette A Holter Moniter (45159)By: Kandy On: 24-May-2012 Intent Felicia RAMIRES EKG (32532)By: Kandy Felicia RAMIRES On: 24-May-2012 Intent Echo CompleteBy: Kandy Felicia RAMIRES On: 24-May-2012 Intent FLU VAC, SPLIT, >3 YEARS, INTRAMUSC On: 05-Apr-2012 Intent (21918)By: Sangita Gil DO Comments: Lot:[id number]:6.30.13Dose:0.5mLRoute:IMSite:L DltdGiven By:YUMIKO signed IMMUNIZ ADMNIN, 1 VAC, SNGL/COMBO On: 05-Apr-2012 Intent (86758)By: Sangita Gil DO Eprescribed prescriptions On: 09-Jan-2012 Intent (G8553)By: Kennedi Jim Phenergan Injection, up to 50 mg On: 12-Jul-2011 Intent (J2550)By: Tracie Barnett LPN Comments: 25mg of Phenergan given in left glutus wendy. Pt tolerated welllot #[id number] exp 11/29 IV Needle placement (35852)By: On: 12-Jul-2011 Intent Tracie Barnett LPN Comments: 22 g iv placed in rt arm . Pt tolerated well. INFUSION, NORMAL SALINE SOLUTION , On: 12-Jul-2011 Intent 250 CC (Special Coverage Instructions Apply. See MCM: 2049) (J7050)By: Tracie Barnett LPN IV Infusion (63062)By: Ericka On: 12-Jul-2011 Bar Hodges LPN TDAP VACCINE >7 IM (94732)By: On: 28-Apr-2011 Intent Kennedi Jim Comments: Lot #[id number]-16/24/13Site-left deltoidgiven by: Amy Alegria LPN FLU VAC, SPLIT, >3 YEARS, INTRAMUSC On: 28-Apr-2011 Intent (42330)By: Kennedi Jim Comments: didnt get this year CT - Abdomen & PelvisBy: Kandy ROCK PICKER, On: 07-Jan-2009 Intent Felicia Davis Comments: ? [...] : Patient Instructions Indication: Bronchitis, acute Encounters Review On: 05-Apr-2018 14:02 Encounter Reason: Shortness of Breath - Symptoms include dyspnea, exercise intolerance (during intense workouts, not every time though), lightheadedness (was doing squats and bent down and when she came back up she got l ightheaded. Exercise was not new for her) [...] Encounter Diagnosis: Non-smoker, BMI 29.0-29.9,adult, Shortness of breath [facility] Office Visit On: 31-Dec-2017 [...] skin exam (06/2015) and screening, Pap smear (2016). 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 The symptoms have been associated with [...] feels well with minor complaints (going to [place] and needs treated for dvt potential and cold sx), has good energy level and is sleeping well. Curren End: 24-May-2014 21:00 t medication use: no side effects, compliant with dosing regimen and considered effective by patient. Patient sleeps 7 hours per night. Nutrition: balanced diet. The medical issues the patient is follow ing up for include All identified problems below, gastric reflux and other (anxiety). Note for Follow up for chronic medical issues: driving on vacation - to [place]- , [ADDITIONAL REASON] Cold Symptoms - Symptoms [...] Prothrombin mutation (289.81), Compound heterozygous MTHFR mutation [id number] (270.4) End: 07-Oct-2012 17:59 [facility] [...] emotional problems. screening, Pap smear ([facility] September 15, 2008). Note for new [...] sleeping well. The patient's appetite is increased (Nilo norton End: 06-Jul-2008 17:44 ke to eat). Nutrition: appropriate balanced diet. Exercises 0 days per week. Sleeps on average 8 hours per night. Normal bowel and bladder habits. Safety measures include appropriate use of safety belts and home smoke detectors. There are no current emotional problems. screening, Pap smear (July 2007). Encounter Diagnosis: Gerd (530.81) [facility] Payers Jyotsna FARMER; bulmaro guarantor
--- OUTSIDE RECORDS SUMMARY | 2018-06-10 07:33 | XMS RPT_ITS | Continuity of Care Document ---
:1975 Author Organization [facility] Address [address] [place] [address] Phone Care Team Providers Name Role Phone Nette Snow DO Unavailable JesusRosana yin Unavailable Unavailable Unavailable Unavailable Problems Name Dates Details Abnormal blood chemistry (R79.9, 790.6) Comments: hypercalcemia Status: Active Acute pain of right knee (M25.561, 719.46) Status: Active Acute sinusitis (J01.90, 461.9) Status: Active Allergic rhinitis (J30.9, 477.9) Status: Active Anxiety (F41.9, 300.00) Status: Active BMI 28.0-28.9,adult (Z68.28, V85.24) Status: Active BMI 29.0-29.9,adult (Z68.29, V85.25) Status: Active Section Status: Active Chest congestion (R09.89, 786.9) Status: Active Chest congestion (R09.89, 786.9) Status: Active Cholecystectomy Comments: 01-08-09 Status: Active Compound heterozygous MTHFR mutation C677T/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 (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.4) Status: Active Deliveries (Parity) Comments: twins [...] so prevention Status: Active SCREENING Status: Active Sleep disorder (G47.9, 780.50) Status: Active SOB (shortness of breath) (R06.02, 786.05) Status: Active Thrombophilia Status: Active 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, 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 Tonsillectomy Status: Active Medications Name Dates Details Fluticasone Propionate 50 MCG/ACT Nasal Suspension 2 (two) Puff daily for 0 days Quantity: 1 {Inhaler} Refills: 5 Ordered:31-Dec-2017 Fast DORadhaa AFast DO Nette A Start : 31-Dec-2017 Active PredniSONE 10 MG Oral Tablet 3 (three) Tablet qd in am with food for 0 days Quantity: 9 {Tablet} Refills: 0 Ordered:29-Aug-2017 Fast DO Nette AFast DO, Nette A Start : 29-Aug-2017 Active Xarelto 20 MG Oral Tablet 1 (one) Tablet as we discussed for 0 days Quantity: 20 {Tablet} Refills: 0 Ordered:04-Jun-2017 Fast DO, Nette AFast DO, Nette A Start : 04-Jun-2017 Active ANTIVERT, 12.5MG (Oral Tablet) 1 Tablet q8hrs prn for 0 days Quantity: 30 {Tablet} Refills: 0 Ordered:28-Apr-2011 Kennedi Jim Start : 08-Jul-2010 End : 28-Apr-2011 Inactive Augmentin 875-125 MG Oral Tablet 1 Tablet BID x 14 days for 0 days Quantity: 28 {Tablet} Refills: 0 Ordered:29-Aug-2017 Ramos Rosana Start : 20-Aug-2017 End : 29-Aug-2017 Inactive [...] Release) 1 cap prn (15 MG) Inactive ZEGERID, 40-1100MG (Oral Capsule) Capsule QD [...] Name Dates Details NKDA (Allergy) Status: Active Past Medical History Name Dates Details Abdominal pain, acute, right lower quadrant (R10.31, 789.03) Comments: LMP Oct 3 Status: Resolved as of 22-May-2014 Bronchitis, acute (J20.9, 466.0) Status: Resolved as [...] 20-Jun-2017 Thyroid Result: Comments: See Note; NOTES: [facility] Imaging Services [address] [place] [address] Thyroid MR#: [id number] Acct: [id number] Name: KYLE FARMER Rep #: [id number] : [birth year] F 42 From: Shahid Coyle MD PCP: Nette Snow DO Status: REG CLI Study: Thyroid Date of Exam: 06/20/17 Exam# [id number] Ordering Dr: Nette Snow DO STUDY: THYROID ULTRASOUND REASON FOR EXAM: Fema le, 42 years old. Thyromegaly. TECHNIQUE: Ultrasound evaluation [...] Service support , CC: Nette Snow DO Forensic Materials Engineer: Signed 01-May-2017 SCREENING MAMM (CAD), BILAT Result: Comments: See Note; NOTES: [facility] Imaging Services [address] [place] [address] SCREENING MAMM (CAD), BILAT MR#: [id number] Acct: [id number] Name: KYLE FARMER Rep #: [id number] : 1975 F 42 From: Esteban Ashley MD PCP: Nette Snow DO Status: REG CLI Study: SCREENING MAMM (CAD), BILAT Date of Exam: 05/01/17 Exam# [id number] Ordering Dr: Zayra Virk MD MAMMOGRAPHY - [...] delay biopsy of a clinically suspicious abnormality. [id number] Electronically Signed: Esteban Ashley MD at 13:43 EST Tel [phone], Service support , CC: Nette Snow DO; Zayra Virk MD Forensic Materials Engineer: Signed 01-Nov-2015 Thyroid Result: Comments: See Note; NOTES: [facility] Imaging Services [address] [place] [address] Verdana 4d Thyroid MR#: [id number] Acct: [id number] Name: KYLE FARMER Rep #: [id number] : 1975 F 40 From: Eduardo Aldana DO PCP: Nette Snow DO Status: REG CLI Study: Thyroid Date of Exam: 11/01/15 Exam# [id number] Ordering Dr: Nette Snow DO STUDY: THYROID [...] Service support , CC: Nette Snow DO Forensic Materials Engineer: Signed 29-Oct-2015 ELECTROCARDIOGRAM, COMPLETE (ECG) (71481) Comments: ekg showed normal sinus rhythym, normal axis, no acute st/t wave changes- sinus marco Result: [MEASUREMENTS ANALYSIS] Date of Test: 10/29/2015 11:03:47; Heart Rate: 58; DC Interval: 168; QRS: 104; QT Interval: 416; Corrected QT Interval (QTc): 413; P Wave [place]: 56; QRS Wave [place]: 30; T Wave [place] : 26; Blood Pressure: 102/62 [ECG DIAGNOSTIC STATEMENTS] Date of Test: 10/29/2015 11:03:47; Summary: Sinus Bradycardia -RSR(V1) -nondiagnostic. 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 Status: Active Smoking Status Name Dates Details Never smoker Vital Signs Date Test Result Details 50-Djs-303725:23 Temperature 98.2 f Comments: Method: Temporal Pulse [...] vitals after 1 liter of NS102/60 pulse 58116/60 pulse 80 BP Systolic 118 mm[Hg] Comments: Patient Position: Supine; Cuff Location: Left Arm; Cuff Size: Standard BP Diastolic 60 mm[Hg] Comments: Patient Position: Supine; Cuff Location: Left Arm; Cuff Size: Standard :24 Comments: 102/60 pulse 100 mcxeyrj08/64 pulse 110 standing Pulse 88 /min Comments: [...] 0.00 cm Results Date Description Value Details 9-Liq-181033:58 Thyroxine (T4) Free, Direct, Comments: PATIENT WAS FASTINGPERFORMED BY: KHANH [employer]theo Oversi [facility] [id number]; can review on 08/29 S T4,Free(Direct) 0.97 ng/dL Range: 0.82-1.77 (Normal) Triiodothyronine,Free,Seru 2.8 pg/mL (Normal) Comments: PATIENT WAS FASTINGPERFORMED BY: KHANH [employer]theo Myghwt2493 [facility] [id number] 0:58 m Range: 2.0-4.4 TSH 1.540 {uIU/mL} Comments: PATIENT WAS FASTINGPERFORMED BY: [facility]versi [facility] [id number] 0:58 (Normal) Range: 0.450-4.500 71-Mlx-534715:17 Blood Glucose , Office (82597) Blood Glucose , Office 96 (Normal) 16-Mec-636606:17 HgA1C , Office (62772) HgA1C , Office 5.1 % (Normal) Range: 4.6 - 7.1 :06 LIPOPROTEIN, BLD, BY NMR Comments: PATIENT WAS FASTINGPERFORMED BY: [facility] [id number] BY: LabCoOcean Medical CenterKifvau0812 [facility] [id number] (50063) LP-IR Score <25 (Normal) Comments: INSULIN RESISTANCE MARKER <--Insulin Sensitive Insulin Resistant--> Percentile in Reference PopulationInsulin Resistance ScoreLP-IR Score Low 25th 50th 75th High <27 27 45 63 >63LP-IR Score is inaccurate if patient is non-fasting. .The LP-IR score is a laboratory developed i [facility] that has beenassociated with insulin resistance [...] were developed and their performance characteristicsdetermined by [employer]. These assays have not been cleared by [...] METABOLIC PANEL, Comments: PATIENT WAS FASTINGPERFORMED BY: [facility] [address] [id number] BY: CB [facility] Xdmatq8568 [facility] [id number] COMPREHENSIVE (23701) ALT (SGPT) 17 [iU]/L (Normal) Range: 0-32 [...] Glucose, Serum 80 mg/dL (Normal) Range: 65-99 :06 MICROALBUMIN: CREATININE Comments: PATIENT WAS FASTINGPERFORMED BY: [employer] [id number] BY: [employer]70 Oversi [facility] HospitalRecommendoNovant Health Rehabilitation Hospital [id number] RATIO (16633) AND (25060) Microalb/Creat Ratio 16.1 {mg/g_creat} (Normal) Range: 0.0-30.0 Microalbumin, Urine 38.3 ug/mL (Normal) Creatinine, Urine 237.7 mg/dL (Normal) :06 HGB A1C (94144) Comments: PATIENT WAS FASTINGPERFORMED BY: [employer] [id number] BY: [employer]70 [facility] [id number] Hemoglobin A1c 5.6 % (Normal) Range: 4.8-5.6 Comments: . Pre-diabetes: 5.7 - 6.4 Diabetes: >6.4 Glycemic control for adults with diabetes: <7.0 :06 T4, FREE (THYROXINE) Comments: PATIENT WAS FASTINGPERFORMED BY: [address] [id number] BY: [place] 6660370 [facility] [id number] (00444) T4,Free(Direct) 1.08 ng/dL (Normal) Range: 0.82-1.77 :06 T3, FREE (TRIDOTHYRONINE) Comments: PATIENT WAS FASTINGPERFORMED BY: [address] [id number] BY: [address] [id number] (35663) Triiodothyronine,Free,Serum 3.1 pg/mL (Normal) Range: 2.0-4.4 :06 RUBEOLA IgG (21773) Comments: PATIENT WAS FASTINGPERFORMED BY: [address] [id number] BY: [place] 6660370 [facility] [id number] Rubeola Ab, IgG >300.0 AU/mL (Normal) Comments: Negative <25.0 Equivocal 25.0 - 29.9 Positive >29.9 Presence of antibodies to Rubeola is presumptive evidence of immunity except when acute infection is suspected. :06 RUBELLA IgG (88296) Comments: PATIENT WAS FASTINGPERFORMED BY: [address] [id number] BY: [place] 6660370 [facility] [id number] Rubella Antibodies, IgG 29.30 {index} (Normal) Comments: Non-immune <0.90 Equivocal 0.90 - 0.99 Immune >0.99 :06 MUMPS IgG (55445) Comments: PATIENT WAS FASTINGPERFORMED BY: [address] [id number] BY: [place] 6660370 [facility] [id number] Mumps Abs, IgG 285.0 AU/mL (Normal) Comments: Negative <9.0 Equivocal 9.0 - 10.9 Positive >10.9 A positive result genera lly indicates past exposure to Mumps virus or previous vaccination. :47 HgA1C , Office (98929) HgA1C , Office 5.3 % (Normal) Range: 4.6 - 7.1 :36 CBC W/AUTO DIFF WBC Comments: PATIENT WAS FASTINGPERFORMED BY: [facility] Gecifo2627 [facility] [id number] Information: [id number] (13612) Immature Grans (Abs) 0.0 {x10E3/uL} (Normal) Range: [...] PANEL, COMPREHENSIVE Comments: PATIENT WAS FASTINGPERFORMED BY: [employer] Egituu3275 [facility] [id number] (65274) ALT (SGPT) 15 [iU]/L (Normal) Range: 0-32 [...] Glucose, Serum 100 mg/dL (Abnormal) Range: 65-99 :36 LIPID PANEL (57925) Comments: PATIENT WAS FASTINGPERFORMED BY: [employer] CenterDjszdr1704 [facility] [id number] LDL/HDL Ratio 1.8 {ratio_units} (Normal) Range: 0.0-3.2 [...] Cholesterol, Total 180 mg/dL (Normal) Range: 100-199 87-Cph-173478:58 Glucose Tolerance (6 Sp Comments: PATIENT WAS FASTINGPERFORMED BY: [employer] CenterCizrej5679 [facility] [id number] Information: 75G Blood) Glucose, 5 hour 70 mg/dL (Normal) Range: 65-109 Glucose, 3 hour 89 mg/dL (Normal) Range: 65-109 Glucose, 4 hour 102 mg/dL (Normal) Range: 65-109 Glucose, 2 hour 122 mg/dL (Normal) Range: 65-139 Glucose, 1 hour 129 mg/dL (Normal) Range: 65-199 Glucose, Fasting 97 mg/dL (Normal) Range: 65-99 :01 TSH (THYROID STIMULATING Comments: PATIENT WAS FASTINGPERFORMED BY: [employer] [id number] HORMONE) (68828) TSH 1.750 {uIU/mL} (Normal) Range: 0.450-4.500 :01 CBC with manual diff Comments: PATIENT WAS FASTINGPERFORMED BY: [employer]cean Medical CenterIvdoet88[address] [place] [address] [id number] Information: [id number] (18177) Immature Grans (Abs) 0.0 {x10E3/uL} (Normal) Range: [...] 3.77-5.28 WBC 6.3 {x10E3/uL} (Normal) Range: 4.0-10.5 29-Zoi-03005:01 Metabolic Panel, Comprehensive Comments: PATIENT WAS FASTINGPERFORMED BY: LabCoOcean Medical CenterKjzanf4269 [facility] [id number] (84336) ALT (SGPT) 11 [iU]/L (Normal) Range: 0-32 [...] Glucose, Serum 98 mg/dL (Normal) Range: 65-99 85-Vcw-834589:48 METABOLIC PANEL, COMPREHENSIVE Comments: PATIENT NOT FASTINGPERFORMED BY: [facility] Xrtxlr0591 [facility] [id number] (68923) ALT (SGPT) 36 [iU]/L (Normal) Range: 0-40 [...] Glucose, Serum 93 mg/dL (Normal) Range: 65-99 25-Ugv-417317:48 CBC WITH MANUAL DIFF Comments: PATIENT NOT FASTINGPERFORMED BY: [facility] Vbfudx9944 [facility] [id number] Information: [id number] (90977) Immature Grans (Abs) 0.0 {x10E3/uL} (Normal) Range: [...] {x10E3/uL} (Normal) Range: 4.0-10.5 :29 LIPID PANEL (22862) Comments: PATIENT WAS FASTINGPERFORMED BY: [employer] CenterOgkfpr4647 [facility] [id number] LDL/HDL Ratio 1.7 {ratio_units} (Normal) Range: 0.0-3.2 [...] MANUAL DIFF Comments: PATIENT WAS FASTINGPERFORMED BY: [employer] Medical CenterBsbleo7193 [facility] [id number] Information: [id number] (45656) Immature Grans (Abs) 0.0 {x10E3/uL} (Normal) Range: [...] 3.80-5.10 WBC 6.1 {x10E3/uL} (Normal) Range: 4.0-10.5 05-Fil-027339:29 METABOLIC PANEL, COMPREHENSIVE Comments: PATIENT WAS FASTINGPERFORMED BY: LabCoOcean Medical CenterMqqkzd3137 [facility] [id number] (40936) ALT (SGPT) 14 [iU]/L (Normal) Range: 0-40 [...] Glucose, Serum 89 mg/dL (Normal) Range: 65-99 53-Oql-121725:29 MICROALBUMIN: CREATININE RATIO Comments: PATIENT WAS FASTINGPERFORMED BY: [facility]izeeBeeNovant [facility] Rehabilitation Hospital [id number] (15388) AND (60497) Microalb/Creat Ratio 3.0 {mg/g_creat} (Normal) Range: 0.0-30.0 Microalbumin, Urine 4.4 ug/mL (Normal) Range: 0.0-17.0 Creatinine, Urine 148.6 mg/dL (Normal) Range: 16.0-327.0 97-Izi-045273:29 Hemoglobin Glyclated (HGB A1C) Comments: PATIENT WAS FASTINGPERFORMED BY: [employer]70 [facility] [id number] (68841) Hemoglobin A1c 5.5 % (Normal) Range: 4.8-5.6 Comments: . Increased risk for diabetes: 5.7 - 6.4 Diabetes: >6.4 Glycemic control for adults with diabetes: <7.0 42-Snp-279713:31 AMARA CULTURE-OTHER (69271) Comments: PATIENT NOT FASTINGPERFORMED BY: [employer] [facility] HospitalRecommendoNovant Health Rehabilitation Hospital [id number] Information: SRC:THRT [id number] Result 1 RRF (Normal) Comments: Routine respiratory antelmo Upper Respiratory Culture Final report (Normal) 90-Iou-812158:20 METABOLIC PANEL, Comments: PATIENT NOT FASTINGPERFORMED BY: KHANH [facility] Dmbunf2484 [facility] [id number] Information: [id number] COMPREHENSIVE (51734) ALT (SGPT) 15 [iU]/L (Normal) Range: 0-40 [...] Glucose, Serum 89 mg/dL (Normal) Range: 65-99 50-Hfw-302179:20 TSH (04195) Comments: PATIENT NOT FASTINGPERFORMED BY: KHANH LabCoOcean Medical CenterWwsztn6443 [facility] [id number] TSH 1.650 {uIU/mL} (Normal) Range: 0.450-4.500 77-Tej-139741:33 Metabolic Panel, Comprehensive Comments: PATIENT NOT FASTINGPERFORMED BY: LabCoOcean Medical CenterQizlxq1400 [facility] [id number] (13321) ALT (SGPT) 15 [iU]/L (Normal) Range: 0-40 [...] Glucose, Serum 96 mg/dL (Normal) Range: 65-99 :33 CBC with manual diff Comments: PATIENT NOT FASTINGPERFORMED BY: [employer] Medical CenterLnyfoh8039 [facility] [id number] Information: [id number] (28703) Immature Grans (Abs) 0.0 {x10E3/uL} (Normal) Range: [...] 3.80-5.10 WBC 6.2 {x10E3/uL} (Normal) Range: 4.0-10.5 :33 TSH (34994) Comments: PATIENT NOT FASTINGPERFORMED BY: [employer] CenterEdcclw4816 [facility] [id number] TSH 1.810 {uIU/mL} (Normal) Range: 0.450-4.500 97-Hek-09701:03 ABDOMEN/PELVIS WITH CONTRAST Radiology Report See Note (Normal) Comments: Exam Number: [id number] CLINICAL:33-year-old female with right lower quadrant pain. [...] 13:24:43 (EDT). Reported By: NIKOLAS SMART Dr. 01-Beq-26331:38 Urine Test, Office (71546) Urine Test, Office Negative (Normal) 91-Vyc-63182:45 CBC with manual diff (10977) Comments: PATIENT NOT FASTINGClinical Information: [id number] PERFORMED BY: [facility]6370 [facility] [id number] Baso (Absolute) 0.0 {x10E3/uL} (Normal) Range: 0.0-0.2 [...] 11.7-15.0 WBC 9.6 {x10E3/uL} (Normal) Range: 4.0-10.5 59-Emx-14480:45 Metabolic Panel, Comprehensive Comments: PATIENT NOT FASTINGPERFORMED BY: LabCoOcean Medical CenterLltoag4495 [facility] [id number] (84680) A/G Ratio 1.9 (Normal) Range: 1.1-2.5 Albumin, [...] Sodium, Serum 141 mmol/L (Normal) Range: 135-145 72-Fjd-71041:34 Urinalysis, Office (22419) UA - BILIRUBIN Negative (Normal) UA - BLOOD Negative (Normal) UA - GLUCOSE Negative (Normal) UA - KETONES Negative mg/dL (Normal) UA - LEUKOCYTE ESTERASE Negative (Normal) UA - NITRITE Negative (Normal) UA - PH 7.5 (Normal) UA - PROTEIN Negative mg/dL (Normal) UA - SPECIFIC GRAVITY 1.020 (Normal) URINE UROBILINGN KIANA TIMED Normal mg/dL (Normal) 24-Jew-026181:25 DUPLEX ARTERIAL FLOW, LIMITED Radiology Report See Note (Normal) Comments: Exam Number: [id number] PELVIC ULTRASOUND AND DUPLEX ARTERIAL FLOW, LIMITED [...] is identified. Reported By: NIGEL ALEXANDRE M.D. 29-Rbs-388762:54 PELVIC (NON ) Radiology Report See Note (Normal) Comments: Exam Number: [id number] PELVIC ULTRASOUND AND DUPLEX ARTERIAL FLOW, LIMITED [...] is identified. Reported By: NIGEL ALEXANDRE M.D. :0 Lipoprotein (a) 63 mg/dL (Abnormal) Comments: PERFORMED BY: [employer]70 [facility] [id number] 5 Range: 0-30 Comments: Desirable: <20 Borderline high risk: 20 - 30 High risk: 31 - 50 Very high risk: >50 . Note: Values >30 may indicate independent risk factor for CH D. Significance of high Lp(a) in non-white populations must be evaluated with caution. :50 CBC With Differential/Platelet Comments: PATIENT WAS FASTINGPERFORMED BY: [employer] Qjmbnm5740 [facility] [id number] Baso (Absolute) 0.0 {x10E3/uL} (Normal) Range: 0.0-0.2 [...] 11.7-15.0 WBC 6.7 {x10E3/uL} (Normal) Range: 4.0-10.5 99-Icr-918468:50 Comp. Metabolic Panel (14) Comments: PATIENT WAS FASTINGPERFORMED BY: LabCoOcean Medical CenterSwdszz9807 [facility] [id number] A/G Ratio 2.0 (Normal) Range: 1.1-2.5 Albumin, [...] Serum 91 mg/dL (Normal) Range: 65-99 If -Nigerien >59 mL/min/1.73 Comments: Note: Persistent reduction for [...] % (Normal) Comments: PATIENT WAS FASTINGPERFORMED BY: KHANH [employer] Plqufo8053 [facility] [id number] 5:50 Comments: Diabetic Adult <7.0 Healthy Adult 4.8 - 5.9 (DCCT/NGSP) [place] Diabete s Association's Summary of Glycemic Recommendations for Adults with Diabetes: Hemoglobin A1c <7.0%. More stringent glycemic goals (A1c <6.0%) may furth er reduce complications at the cost of increased risk of hypoglycemia. 52-Eco-939499:50 Lipid Panel With LDL/HDL Comments: PATIENT WAS FASTINGPERFORMED BY: KHANH [employer]70 [facility] [id number] Ratio Cholesterol, Total 194 mg/dL (Normal) Range: [...] 2.455 {uIU/mL} Comments: PATIENT WAS FASTINGPERFORMED BY: [employer]cean Medical CenterXegjul7501 [facility] [id number] :50 (Normal) Range: 0.450-4.500 Plan of Care Name Dates Details Instructions [facility] WELLNESS EXAM : Eprescribed prescriptions (G8553) [...] : *Vertigo Education Indication: Vertigo Planned Observations HGB A1C (51646)Indication: Impaired fasting glucose On: 82-Ywy-011349:17 Request METABOLIC PANEL, COMPREHENSIVE (21692)Indication: Impaired fasting glucose On: 40-Fxy-089367:17 Request LIPID PANEL (53189)Indication: Hyperlipidemia On: :17 Request Celiac Disease Comphrehensive Profile (27124)Indication: Diarrhea On: 38-Ocn-135086:00 Request OVA & PARASITE DIR SMEAR (05405)Indication: Diarrhea On: :58 Request LEUKOCYTE COUNT, FECAL (99366)Indication: Diarrhea On: :58 Request Clostridium difficile Toxin A+B, EIA (39121)Indication: Diarrhea On: :58 Request AMARA CULTURE-STOOL (99309)Indication: Diarrhea On: :58 Request METABOLIC PANEL, COMPREHENSIVE (39592)Indication: SOB (shortness of breath) On: 3-Zti-805233:20 Request D-Dimer (07311)Indication: SOB (shortness of breath) On: 8-Nva-251908:19 Request Comments: STAT-if positive please send for CTA STAT. Call [phone] TSH (12930)Indication: Thyromegaly (Renamed from Goiter) On: 67-Bjj-534258:41 Request T4, FREE (THYROXINE) (17902)Indication: Thyromegaly (Renamed from Goiter) On: 60-Lmz-134882:41 Request T3, FREE (TRIDOTHYRONINE) (60983)Indication: Thyromegaly (Renamed from Goiter) On: 69-Fxd-652403:41 Request CBC W/AUTO DIFF WBC (63328)Indication: Impaired fasting glucose On: 53-Udn-250346:58 Request HGB A1C (60447)Indication: Impaired fasting glucose On: 79-Vse-927760:56 Request METABOLIC PANEL, COMPREHENSIVE (30267)Indication: Impaired fasting glucose On: 41-Eif-614191:56 Request LIPID PANEL (48921)Indication: Impaired fasting glucose On: 51-Ybm-161826:56 Request CBC W/AUTO DIFF WBC (07308)Indication: Acute sinusitis On: 2-Xpf-093279:06 Request METABOLIC PANEL, COMPREHENSIVE (17116)Indication: FAMILY HISTORY OF DIABETES MELLITUS On: 2-Bpf-784221:06 Request LIPID PANEL (87994)Indication: Family history of ischemic heart disease On: 1-Hnq-557639:06 Request GLUCOSE TOLERANCE TEST (GTT) 5 hour (53786)Indication: Vertigo On: 1-Biv-483295:30 Request Rapid Strep Test, Office (38787)Indication: Pharyngitis, acute On: 61-Fqc-182855:22 Request Metabolic Panel, Comprehensive (13680)Indication: Abnormal blood chemistry On: 75-Coe-995985:53 Request Planned Encounters Medical; [facility] Pre Wellness Exam (DF Nurse) - On: 29-Apr-2018 9:00 [facility] NURSE, DF Medical; [facility] Wellness Exam (Doctor) - On: 10-Jun-2018 13:30 [facility] Fast DO, Nette A Fast DO, Nette A Planned Procedures ELECTROCARDIOGRAM, COMPLETE (ECG) On: 29-Aug-2017 Intent (29162)By: Fast DO, Nette A Fast DO, Comments: ekg showed normal sinus rhythym, normal axis, no acute st/t wave changes rsr Nette A COMPUTED TOMOGRAPHY ANGIOGRAPHY OF On: 20-Aug-2017 Intent CHEST WITH CONTRAST FOR PULMONARY Comments: STAT if elevated D-DIMER Please call:[phone] EMBOLUS (82560)By: Tracie Alves Ultrasound - ThyroidBy: Fast DO, Nette On: 04-Jun-2017 Intent A Fast DO, Nette A Ultrasound - ThyroidBy: Fast DO, Nette On: 29-Oct-2015 Intent A Fast DO, Nette A Radiology - Knee - Right - Weight On: 29-Oct-2015 Intent BearingBy: Fast DO, Nette A Fast DO, Comments: with sunrise view of patella-- call results Nette Mcdaniel Holter Moniter (67209)By: Kandy RAMIRES, On: 24-May-2012 Intent Felicia Davis EKG (16190)By: Kandy RAMIRES Felicia Davis On: 24-May-2012 Intent Echo CompleteBy: Kandy RAMIRES Felicia Davis On: 24-May-2012 Intent FLU VAC, SPLIT, >3 YEARS, INTRAMUSC On: 05-Apr-2012 Intent (85138)By: Sangita Gil DO Comments: Lot:[id number]:6.30.13Dose:0.5mLRoute:IMSite:L DltdGiven By:YUMIKO signed IMMUNIZ ADMNIN, 1 VAC, SNGL/COMBO On: 05-Apr-2012 Intent (85152)By: Sangita Gil DO Eprescribed prescriptions (G8553)By: On: 09-Jan-2012 Intent Kennedi Jim Phenergan Injection, up to 50 mg On: 12-Jul-2011 Intent (J2550)By: Tracie Barnett LPN Comments: 25mg of Phenergan given in left glutus wendy. Pt tolerated welllot #[id number] exp 11/29 IV Needle placement (48640)By: On: 12-Jul-2011 Intent Tracie Barnett LPN Comments: 22 g iv placed in rt arm . Pt tolerated well. INFUSION, NORMAL SALINE SOLUTION , 250 On: 12-Jul-2011 Intent CC (Special Coverage Instructions Apply. See MCM: 2049) (J7050)By: Tracie Barnett LPN IV Infusion (08704)By: Ericka On: 12-Jul-2011 Bar Hodges LPN TDAP VACCINE >7 IM (30790)By: Diandra On: 28-Apr-2011 Intent Kennedi Comments: Lot #[id number]/24/13Site-left deltoidgiven by: Amy Alegria LPN FLU VAC, SPLIT, >3 YEARS, INTRAMUSC On: 28-Apr-2011 Intent (50064)By: Kennedi Jim Comments: didnt get this year CT - Abdomen & PelvisBy: Kandy CIRCULATION WORKER, On: 07-Jan-2009 Intent Felicia Davis Comments: ? gallbladder ? appendixcall wet read to me Ultrasound - PelvisBy: Fast DO, Nette On: 25-Aug-2008 Intent A Fast DO, Nette A UGI (With air contrast if On: 06-Jul-2008 Intent necessary)By: Sierra COOMBS, Mayuri Wheeler Planned Medications INFUSION, NORMAL SALINE SOLUTION , 250 CC Ordered: 12-Jul-2011 Pending Tracie Barnett LPN Phenergan 50 MG/ML Injection Solution Ordered: 12-Jul-2011 Pending Tracie Barnett LPN Instructions Name Dates Details MDVIP WELLNESS EXAM : How to access [...] Indication: Bronchitis, acute Encounters Office Visit On: 31-Dec-2017 13:33 Encounter Diagnosis: [...] about 3-4 weeks ago-went to 6th grade [employer] and r ode on bus for 1 [...] balanced diet. 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 The symptoms have been associated with [...] feels well with minor complaints (going to [place] and needs treated for dvt potential and [...] medical issues: driving on vacation - to [place]- , [ADDITIONAL REASON] Cold Symptoms - Symptoms [...] Prothrombin mutation (289.81), Compound heterozygous MTHFR mutation C677T/E7291V (270.4) End: 07-Oct-2012 17:59 [facility] [...] emotional problems. screening, Pap smear (Ammy Reyez [facility] September 15, 2008). Note for [...]
--- OUTSIDE RECORDS SUMMARY | 2018-06-10 07:33 | XMS RPT_ITS ---
:1975 Author Organization OHIP Care Team Providers Name Role Phone Fast, Nette Attending Unavailable Fast, Nette Referring Unavailable Fast, Nette Primary Care Unavailable Mayuri Esquivel Attending Unavailable Fast, Nette Primary Care Unavailable Marcanthony, Zayra Attending Unavailable Fast, Nette Referring Unavailable Marcanthony, Zayra Attending Unavailable Fast, Ntete Primary Care Unavailable Fast, Nette Attending Unavailable Fast, Nette Referring Unavailable Fast, Nette Primary Care Unavailable Fast DO, Nette A Attending Unavailable Fast DO, Nette A Referring Unavailable Fast DO, Nette A Consulting Unavailable Purpose Purpose PROBLEMS PROBLEMS DATE TYPE CONDITION / CODE ATTENDING STATUS SOURCE 04/08/2018 Unknown N63.20 - Carrington Virk Unspecified lump [facility] in the left Hospital breast, Repository unspecified quadrant / N63.20(ICD-10) 06/20/2017 Unknown 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 - Fast, Entte Active Rang[place] 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 Chief Complaint: est annual Lead Case Manager Required: No Is patient in pain?: No Allergies No Known Allergies Allergy (Unverified 04/08/18 10:55) Medications NK 04/08/18 [History Confirmed 04/08/18] Is last menstrual period known: No Post menopausal: No Patient : No : No PFSH Medical History Endometriosis (Acute) Heart murmur (Acute) History of infertility (Acute) Thrombophilia (Acute) pre diabetic (Acute) Surgical History delivery delivered (Acute) History of LAVH (Acute) Family History Father Diabetes Heart disease Mother Heart disease Hyperlipidemia Social History Smoking Status: Never smoker alcohol intake: never substance use type: does not use caffeine: No what type of physical activity do you participate in: none seatbelt use: always do you feel safe at home: Yes additional social history: Ingrid Lino Patient works at [employer] Pregancy History 1 Elective abortions Hx Para 2 Spontaneous abortions Past Pregnancies Del. 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 Last PAP: hyst History of abnormal PAP: no Last mammogram: due april History of abnormal mammogram: no Colon cancer screening: Other preventative health care screenings: pcp is Dr Snow Female Reproductive History Questions: Sexually active: Yes, Dyspareunia: No ROS Const Constitutional: Reports as per HPI; denies poor appetite, fatigue, increased appetite, weight gain or weight loss Cardio Card: Denies chest pain Resp Resp: Denies dyspnea or cough GI GI: Reports as per HPI; denies bloating, abdominal pain, constipation, vomiting or nausea : Reports as per HPI and other; denies blood in urine, vaginal odor, vaginal itching, vaginal dryness, vaginal discharge, urinary urgency, urinary incontinence, urinary frequency, pelvic pain, painful urination, difficulty urinating, prolapse symptoms or nipple discharge Skin Skin/Breast: Denies nipple discharge, breast pain, breast skin changes, breast lump or changing lesions Exam Const General: cooperative, healthy appearing, comfortable, no acute distress, well developed, well groomed [facility] Head: normal to inspection, normocephalic Ears: hearing grossly normal bilaterally, external ears normal Nose: external nose normal Face and sinus: normal facial exam Neck Neck: normal visual inspection, full ROM, no lymphadenopathy Thyroid: thyroid normal Chest Chest palpation AND inspection: normal inspection of the chest Breast inspection: normal inspection of the breasts, normal inspection of the axillae, abnormal inspection of the breast Breast palpation: normal palpation of the axillae, no axillary lymphadenopathy, abnormal palpation of the breast (fibrocystic mass/area) Resp Effort AND Inspection: normal respiratory effort GI Inspection: normal to inspection, non-distended Palpation: no guarding, soft, no hepatosplenomegaly General: bladder normal to palpation External Female Exam: normal external appearance, normal appearance of the urethra, no lesions Urethra: normal appearance of the urethra, normal palpation Speculum Exam - Vagina: normal appearance of the vagina, normal vaginal discharge Bimanual Exam- Vagina AND Uterus: bladder normal to palpation Bimanual Exam- Adnexa, other: normal adnexae, no adnexal masses, adnexae non-tender Skin General: no rashes or lesions noted Neuro General: alert, moves all extremities, no focal motor deficits Extrem General: no pedal edema, normal to inspection Psych Appearance: grossly normal Mental Status: mental status grossly normal Affect: normal affect Speech and Movement: speech and movement normal Attitude: cooperative Assessment AND Plan Problems 1. Encounter for gynecological examination with abnormal finding Z01.411 2. Breast lump on left side at 3 o'clock position N63.20 Plan Cervical cancer screening: hyst Breast cancer screening: mamm STD prevention and contraceptive options including their risks, benefits, and alternatives were reviewed with the patient and she chooses: [facility] Encouraged maintenance of a healthy weight and active lifestyle and handout given. Calcium/vitamin D recommendations provided. Annual exam handout including recommendations for good health guidelines and basic screening information given. Problem list up to date, see problem list details for any additional plan information. follow up in one year for annual health maintenance exam or sooner if needed. Orders Orders: Coding Level of Care Code Off vis,est,prev 40-64yrs Diagnoses Encounter for gynecological examination with abnormal finding Z01.411 Gynecological examination findings: abnormal findings PRESENT Breast lump on left side at 3 o'clock position N63.20 04/08/18 1156 <Electronically signed by Zayra Virk MD> Date Zayra Virk MD Cosigner Signature: Date (if applicable) CC: CTA CHEST W/WO Observed: 04/05/2018 Status: F Source: EUGENE CONTRAST 7:41 PM [facility] REPOSITORY [facility] Imaging Services [address] [place] [address] CTA Chest W/WO Contrast MR#: [id number] Acct: [id number] Name: KYLE FARMER Rep #: [id number] : 1975 F 42 From: Amilcar Mann DO PCP: Nette Snow DO Status: REG CLI Study: CTA Chest W/WO Contrast Date of Exam: 04/05/18 Exam# [id number] Ordering Dr: Mayuri Esquivel MD STUDY: CTA CHEST REASON FOR EXAM: Female, 42 years old. Shortness of breath, elevated d-dimer RADIATION DOSAGE (If Supplied By Facility): CTDIvol = ( 9.63 ) mGy, DLP = ( 477.07 ) mGycm TECHNIQUE: The examination was performed with the intravenous administration of 100ML ml of Isovue 370 contrast material. Post-processing of the angiographic images was performed, with multiplanar reformation and 3D reconstruction. Individualized dose optimization techniques were used for this CT. COMPARISON: None. FINDINGS: Normal enhancement of the main pulmonary artery and right and left pulmonary arteries. Normal enhancement of the bilateral peripheral pulmonary arteries. There is no demonstrated pulmonary embolism. Normal thoracic aorta and visualized great vessels. There is no demonstrated aortic dissection. Normal heart and pericardium. Normal mediastinum. Normal hilar regions. Normal visualized trachea and bronchi. The lungs are well expanded. Normal pulmonary parenchyma. Normal pleura. Normal chest wall structures. Normal osseous structures. Normal visualized upper abdomen. CT/CTA Chest W/WO Contrast IMPRESSION: Normal CTA chest examination, without a demonstrated pulmonary embolism or arterial dissection. Electronically Signed: Amilcar Mann DO at 21:09 EST Tel [phone], Service support , CC: Mayuri Esquivel MD; Nette Snow DO Telephone Supervisor: Signed CBC W/DIFF, AUTOMATED Collected: 04/05/2018 Status: F Source: EU[place]E 3:04 PM [facility] REPOSITORY TYPE CODE TESTS RESULT OUT OF RANGE REFERENCE UNITS LAB L100.1000 4.4-11.0 K/mm3 Normal WBC 6.0 LAB L100.1200 4.2-5.4 M/mm3 Low RBC 4.17 LAB L100.1300 12.0-15.0 g/dl Normal HGB 13.2 LAB L100.1400 37-47 % Normal HCT 38.2 LAB L100.1500 81-99 fL Normal MCV 91.6 LAB L100.1600 27.0-32.0 pg Normal MCH 31.7 LAB L100.1700 32-36 g/gl Normal MCHC 34.6 LAB L100.1810 11.6-14.6 % Normal RDW CV 12.8 LAB L100.1820 35.1-43.9 fl Normal RDW SD 42.4 LAB L100.1900 150-450 K/mm3 Normal PLT 338 LAB L100.2000 6.2-12.0 fl Normal MPV 9.7 LAB L100.2100 47-70 % Normal NEUT% 50.5 LAB L100.2200 19-41 % High LY% 41.3 LAB L100.2300 0-10 % Normal MONO% 6.8 LAB L100.2400 0-5 % Normal EO% 1.0 LAB L100.2500 0-1 % Normal BASO% 0.2 LAB L100.2550 0.0-0.9 % Normal IM GRAN % 0.200 Result Comment: IG% - Immature Granulocytes (promyelocytes, myelocytes and metamyelocytes) > 1% indicates that a LEFT SHIFT is Present. LAB L100.2620 2.0-7.7 X10 3/uL Normal Absolute Neut 3.1 LAB L100.2720 0.83-4.51 X10 3/ul Normal Absolute Lymph 2.49 Performed By: #### L100.0100 #### [place], [address] COMPREHENSIVE METABOLIC Collected: 04/05/2018 Status: F [facility] REPOSITORY TYPE CODE TESTS RESULT OUT OF RANGE REFERENCE UNITS LAB L501.0100 74-106 mg/dL Normal GLU 86 Result Comment: Please note revised GLUCOSE reference range effective 2017. LAB L501.1000 7-18 mg/dL Normal BUN 14 LAB L501.1100 0.55-1.02 mg/dL Normal CREAT,SERUM 0.77 Result Comment: The validity of the calculated GFR AND GFRAA in patients over 70 years has not been determined. Clinical correlation is essential. LAB L501.1110 >60 mL/min Normal EST GFR 88 Result Comment: Non- GFR Calc LAB L501.1115 >60 mL/min Normal EST GFR - AA 106 Result Comment: GFR Calc LAB L501.1300 10-20 RATIO Normal BUN/CRE 18.2 LAB L501.1500 6.4-8.2 g/dL T Normal PROT 7.3 LAB L501.1800 3.2-5.0 g/dL Normal ALB 4.2 LAB L501.1950 2.2-4.2 g/dL Normal GLOB 3.1 LAB L501.2000 0.9-2.4 RATIO Normal A/G 1.4 LAB L501.2200 8.5-10.1 mg/dL CA Normal 8.8 LAB L501.4100 15-37 U/L Normal AST 29 LAB L501.4305 45-117 U/L Normal ALK P 73 LAB L501.4405 13-56 U/L Normal ALT 27 LAB L501.4600 0.20-1.00 mg/dL T Normal BILI 0.50 LAB L501.5300 136-145 mmol/L NA Normal 140 LAB L501.5600 3.5-5.1 mmol/L K Normal 4.0 LAB L501.5900 98-107 mmol/L CL Normal 105 LAB L501.6100 21.0-32.0 mmol/L Normal CO2 27.0 LAB L501.6200 5-15 Normal GAP 8 Performed By: #### L500.4050, L501.9520 #### Laboratory [address] [place], [address] THYROID STIM HORMONE Collected: 04/05/2018 Status: F Source: [place] (TSH) 3:04 PM [facility] REPOSITORY TYPE CODE TESTS RESULT OUT OF RANGE REFERENCE UNITS LAB L501.9520 0.358-3.74 uIU/mL Normal TSH 1.21 Performed By: #### L500.4050, L501.9520 #### Laboratory [address] [place], [address] D-DIMER QUANTITATIVE Collected: 04/05/2018 Status: F Source: [place] (DVT/PE) 3:04 PM [facility] REPOSITORY TYPE CODE TESTS RESULT OUT OF RANGE REFERENCE UNITS LAB L300.8000 0.27-0.49 FEU/ug/m High alert D-DIMER 1.09 QUANT Result Comment: D-Dimer ELEVATED (>0.49): Additional studies and clinical assessments are indicated to conclude diagnosis of: Deep Vein Thrombosis (DVT) or Pulmonary Embolism (PE) Performed By: #### L300.8000 #### Laboratory [address] [place], [address] THYROID Observed: 06/20/2017 Status: F Source: EUGENE 3:02 PM [facility] REPOSITORY [facility] Imaging Services [address] [place] [address] Thyroid MR#: [id number] Acct: [id number] Name: KYLE FARMER Rep #: [id number] : 1975 F 42 From: Shahid Coyle MD PCP: Nette Snow DO Status: REG CLI Study: Thyroid Date of Exam: 06/20/17 Exam# [id number] Ordering Dr: Nette Snow DO STUDY: THYROID ULTRASOUND REASON FOR EXAM: Female, 42 years old. Thyromegaly. TECHNIQUE: Ultrasound evaluation of the thyroid was performed with real-time and static livingston-scale imaging. COMPARISON: Thyroid ultrasound November 01, 2015. FINDINGS: RIGHT LOBE: The right lobe of the thyroid gland measures 5.3 x 1.6 x 1.3 cm. There is a homogeneous echotexture. Again seen is a well-defined 7 x 7 x 5 mm hypoechoic cyst at the anterior midpole. LEFT LOBE: The left lobe of the thyroid gland measures 4.8 x 1.6 x 1.4 cm. There is a homogeneous echotexture. Again seen is a well- defined 9 x 6 x 6 mm hypoechoic cystic lesion with a focal eccentric calcification at the anterior upper pole. ISTHMUS: The isthmus measures 3.0 mm. The regional lymph nodes are normal. US/Thyroid IMPRESSION: Normal size thyroid gland with stable bilateral cysts, as described. Electronically Signed: William Coyle MD at 20:01 EDT , Service support , CC: Nette Snow DO Telephone Supervisor: Signed SCREENING MAMM (CAD), Observed: 05/01/2017 Status: F Source: EUGENE BILAT 12:39 PM [facility] REPOSITORY [facility] Imaging Services [address] [place] [address] SCREENING MAMM (CAD), BILAT MR#: [id number] Acct: [id number] Name: MARLENYKYLE Katharina Rep #: [id number] : 1975 F 42 From: Esteban Ashley MD PCP: Nette Snow DO Status: REG CLI Study: SCREENING MAMM (CAD), BILAT Date of Exam: 05/01/17 Exam# [id number] Ordering Dr: Zayra Virk MD MAMMOGRAPHY - BILATERAL SCREENING REASON FOR EXAM: Female, 42 years old. Routine annual screening examination. PERTINENT HISTORY: Non-contributory. TECHNIQUE: Digital bilateral breast jimbo (3D mammographic acquisition) in the CC and MLO projections. 2-D mediolateral oblique (MLO) and craniocaudad (CC) views of both breasts were obtained. CAD: Full Field Digital Mammography with Computer Added Detection was performed. COMPARISON: Comparison is made with prior outside examination dated February 03, 2016. FINDINGS: Breast Composition: The breasts are extremely dense, which lowers the sensitivity of mammography. There are no dominant masses or suspicious calcifications. No other significant abnormalities are identified. There has been no significant change since the prior study. HPBI/SCREENING MAMM (CAD), BILAT IMPRESSION: Stable bilateral screening mammogram. Yearly follow-up mammogram recommended. (A) ASSESSMENT CATEGORY: BIRADS Category 1: Negative. A letter regarding these results will be sent to the patient by the facility within 30 days. Approximately 10% of breast cancers are not detected by mammography. A normal mammogram should not delay biopsy of a clinically suspicious abnormality. [id number] Electronically Signed: Esteban Ashley MD at 13:43 EST Tel [phone], Service support , CC: Nette Snow DO; Zayra Virk MD Telephone Supervisor: Signed ALLERGIES ALLERGIES DATE TYPE / CODE NAME / CODE REACTION SEVERITY SOURCE 04/08/2018 Drug No Known Unknown [facility] Allergy/4160 Allergies/F00 [facility] [address]81(SNOMED [id number](RXNOR Repository CT) M) ENCOUNTERS ENCOUNTERS ADMIT/DISCHARGE ACCOUNT ADMITTING ENCOUNTER LOCATION SOURCE NUMBER CLASS 04/10/2018 [id number] Ambulatory Building:[facility] Practices Repository 04/08/2018/01/21 [id number] Ambulatory BMSBuilding:B [place] 9 9 [facility] Repository 04/05/2018 [id number] Ambulatory [place] 8 [facility] ing:CT Repository 04/05/2018 [id number] Ambulatory Rangely R[place]ely 1 [facility] ing:LABSPEC Repository 06/20/2017 [id number] Ambulatory [place] 5 [facility] ing:US Repository 05/01/2017 [id number] Ambulatory [place] 4 [facility] ing:BI Repository FUNCTIONAL STATUS FUNCTIONAL STATUS No Functional Status Records FoundEQUIPMENT EQUIPMENT No Equipment Records FoundPAYERS PAYERS ENCOUNTER GUARANTOR PAYER SUBSCRIBER SOURCE 04/10/2018 KYLE Primary KYLE OHIP Practices RICKLYDOB: Insurance:[employer] RICKLYDOB: Repository [id number] icy Number: [id number] [facility] [id number] [address] [place] [address], Date:4802-18-84Yldh[address] [address]Xgm: Name:[facility] [address]Xqa: [address] [place] [address] (XA)Tel: [phone]: [phone] ([phone] 04/08/2018 KYLE G Primary KYLE G [place] [id number] TR Insurance:[employer]ULTCAREPol RICKLYDOB: [address] Number: [id number] [facility] [address]Hii: [id number] Repository Date:5560-38-37AM BOX () [address] [place] [address]RW: 04/08/2018 Secondary NOT GIVENUNK [place] Insurance:SELF PAY [facility] Number: Effective Repository Date:2018-04-08 04/05/2018 KYLE G Primary KYLE G [place] [id number] TR Insurance:[employer]AREPol RICKLYDOB: [address] icy Number: [id number] St[facility] [address]Ddc: [id number] Repository Date:9054-26-46ZO [address] () [address] [address]TP: 04/05/2018 Secondary NOT GIVENUNK [place] Insurance:SELF PAY [facility] Number: Effective Repository Date:2018-04-05 04/05/2018 KYLE Posadas Primary KYLE Posadas [place] [id number] TR Insurance:[employer]TCAREPol RICKLYDOB: [address] Number: [id number] [facility] [address]Bmv: [id number] Repository Date:1045-43-62OB [address] () [address], [place] [address]DI: 04/05/2018 Secondary NOT GIVENUNK [place] Insurance:SELF PAY [facility] Number: Effective Repository Date:2018-04-05 06/20/2017 Kyle Posadas Primary Kyle Posadas [place] [id number] TR Insurance:[employer]ULTCAREPol RicklyDOB: [address] Number: [id number] St. [facility] [address]Asl: [id number] Repository Date:6377-96-00XO BOX () [address] [place] [address]UV: 06/20/2017 Secondary NOT GIVENUNK [place] Insurance:SELF PAY [facility] Number: Effective Repository Date:2017-06-04 05/01/2017 Kyle Posadas Primary Kyle Posadas R[place]ely [id number] TR Insurance:AULTCAREPol RicklyDOB: [address] Number: [id number] St. [facility] [address]Zsg: [id number] Repository Date:3994-07-57OI [address] () [address], [place] [address]DS: 05/01/2017 Secondary NOT GIVENUNK [place] Insurance:SELF PAY [facility] Number: Effective Repository Date:2017-02-12 SOCIAL HISTORY SOCIAL HISTORY No Social History Records FoundFAMILY HISTORY FAMILY HISTORY No Family History Records FoundADVANCE DIRECTIVES ADVANCE DIRECTIVES No Advanced Directives Records FoundINFORMATION SOURCE INFORMATION SOURCE DATE CREATED AUTHOR AUTHOR'S ORGANIZATION 04/14/2018 OHIP
== END ==
PROVIDERS: Family Provider Internal Medicine; PCP Internal Medicine; Referring Provider Internal Medicine; Visit Provider Internal Medicine
DX: R06.02 Shortness of breath (principal)
CPT/HCPCS: 80053; 84443; 85025; 85379

== ENCOUNTER → 2018-04-05 19:22 | Outpatient (CLI) | payer OTHER, SELFPAY ==
--- NOTE | 2018-04-05 19:00 | CT_ITS ---
STUDY: CTA CHEST REASON FOR EXAM: Female, 42 years old. Shortness of breath, elevated d-dimer RADIATION DOSAGE (If Supplied By Facility): CTDIvol = ( 9.63 ) mGy, DLP = ( 477.07 ) mGycm TECHNIQUE: The examination was performed with the intravenous administration of 100ML ml of Isovue 370 contrast material. Post-processing of the angiographic images was performed, with multiplanar reformation and 3D reconstruction. Individualized dose optimization techniques were used for this CT. COMPARISON: None. FINDINGS: Normal enhancement of the main pulmonary artery and right and left pulmonary arteries. Normal enhancement of the bilateral peripheral pulmonary arteries. There is no demonstrated pulmonary embolism. Normal thoracic aorta and visualized great vessels. There is no demonstrated aortic dissection. Normal heart and pericardium. Normal mediastinum. Normal hilar regions. Normal visualized trachea and bronchi. The lungs are well expanded. Normal pulmonary parenchyma. Normal pleura. Normal chest wall structures. Normal osseous structures. Normal visualized upper abdomen. CT/CTA Chest W/WO Contrast IMPRESSION: Normal CTA chest examination, without a demonstrated pulmonary embolism or arterial dissection. Electronically Signed: Amilcar Mann DO at 21:09 EST Tel [phone], Service support ,
--- OUTSIDE RECORDS SUMMARY | 2018-06-10 08:24 | XMS RPT_ITS ---
:1975 Author Organization OHIP Care Team Providers Name Role Phone Fast DO, Nette A Attending Unavailable Fast DO, Nette A Referring Unavailable Fast DO, Nette A Consulting Unavailable Fast, Nette Attending Unavailable Fast, Nette Referring Unavailable Fast, Nette Primary Care Unavailable Bonelorrainebrenda Mayuri Attending Unavailable Fast, Nette Primary Care Unavailable Sully, Zayra Attending Unavailable Fast, Nette Referring Unavailable Marcanthony, Zayra Attending Unavailable Fast, Nette Primary Care Unavailable Fast, Nette Attending Unavailable Fast, Nette Referring Unavailable Fast, Nette Primary Care Unavailable Purpose Purpose PROBLEMS PROBLEMS DATE TYPE CONDITION / CODE ATTENDING STATUS SOURCE 04/08/2018 Unknown N63.20 - Sully Active [place] Unspecified lump [facility] in the left Hospital breast, Repository unspecified quadrant / N63.20(ICD-10) 06/20/2017 Unknown E01.0 - Fast, Nette Active [place] 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: Details: KYLE FARMER is a [...] no acute distress, well developed, well groomed [facility] Head: normal to inspection, normocephalic Ears: hearing [...] reviewed with the patient and she chooses: [facility] Encouraged maintenance of a healthy weight and [...] Status: F Source: [place] CONTRAST 7:41 PM [facility] REPOSITORY [facility] Imaging Services [address] [place] [address] CTA Chest W/WO Contrast MR#: [id number] Acct: [id number] Name: KYLE FARMER Rep #: [id number] : 1975 F 42 From: Amilcar Mann DO PCP: Nette Snow DO Status: REG CLI Study: CTA Chest W/WO Contrast Date of Exam: 04/05/18 Exam# [id number] Ordering Dr: Mayuri Esquivel MD STUDY: CTA [...] Amilcar Mann DO at 21:09 EST Tel [phone], Service support , CC: Mayuri Esquivel MD; Nette Snow DO Change Coordinator: Signed CBC W/DIFF, AUTOMATED Collected: 04/05/2018 Status: F Source: [place] 3:04 PM [facility] REPOSITORY TYPE CODE TESTS RESULT OUT OF [...] Lymph 2.49 Performed By: #### L100.0100 #### [facility] [place], [address] COMPREHENSIVE METABOLIC Collected: 04/05/2018 Status: F [facility] REPOSITORY TYPE CODE TESTS RESULT OUT OF [...] 8 Performed By: #### L500.4050, L501.9520 #### [facility] [address] [place], [address] THYROID STIM HORMONE Collected: 04/05/2018 Status: F Source: [facility] (TSH) 3:04 PM [facility] REPOSITORY TYPE CODE TESTS RESULT OUT OF RANGE REFERENCE UNITS LAB L501.9520 0.358-3.74 uIU/mL Normal TSH 1.21 Performed By: #### L500.4050, L501.9520 #### [facility] [address] [place], [address] D-DIMER QUANTITATIVE Collected: 04/05/2018 Status: F Source: [facility] (DVT/PE) 3:04 PM [facility] REPOSITORY TYPE CODE TESTS RESULT OUT OF RANGE REFERENCE UNITS LAB L300.8000 0.27-0.49 FEU/ug/m High alert D-DIMER 1.09 QUANT Result Comment: D-Dimer ELEVATED (>0.49): Additional studies and clinical assessments are indicated to conclude diagnosis of: Deep Vein Thrombosis (DVT) or Pulmonary Embolism (PE) Performed By: #### L300.8000 #### [facility] [address] [place], [address] THYROID Observed: 06/20/2017 Status: F Source: [place] 3:02 PM [facility] REPOSITORY [facility] Imaging Services [address] [place] [address] Thyroid MR#: [id number] Acct: [id number] Name: KYLE FARMER Rep #: [id number] : 1975 F 42 From: Shahid Coyle MD PCP: Nette Snow DO Status: REG CLI Study: Thyroid Date of Exam: 06/20/17 Exam# [id number] Ordering Dr: Nette Snow DO STUDY: THYROID [...] Service support , CC: Nette Snow DO Change Coordinator: Signed SCREENING MAMM (CAD), Observed: 05/01/2017 Status: F Source: [place] BILAT 12:39 PM [facility] REPOSITORY [facility] Imaging Services [address] [place] [address] SCREENING MAMM (CAD), BILAT MR#: [id number] Acct: [id number] Name: MARLENYKYLE Katharina Rep #: [id number] : 1975 F 42 From: Esteban Ashley MD PCP: Nette Snow DO Status: REG CLI Study: SCREENING MAMM (CAD), BILAT Date of Exam: 05/01/17 Exam# [id number] Ordering Dr: Zayra Virk MD MAMMOGRAPHY - [...] delay biopsy of a clinically suspicious abnormality. [id number] Electronically Signed: Esteban Ashley MD at 13:43 EST Tel [phone], Service support , CC: Nette Snow DO; Zayra Virk MD Change Coordinator: Signed ALLERGIES ALLERGIES DATE TYPE / CODE NAME / CODE REACTION SEVERITY SOURCE 04/08/2018 Drug No Known Unknown [place] [facility] Allergy/4160 Allergies/F00 [facility] 51057(SNOMED 7023730(RXNOR Repository CT) M) ENCOUNTERS ENCOUNTERS ADMIT/DISCHARGE ACCOUNT ADMITTING ENCOUNTER LOCATION SOURCE NUMBER CLASS 04/10/2018 [id number] Ambulatory Building:[facility] Practices Repository 04/08/2018/01/21 [id number] Ambulatory BMSBuilding:B [place] 9 9 MS.[facility] Hospital Repository 04/05/2018 [id number] Ambulatory [place] 8 [facility] ing:CT Repository 04/05/2018 [id number] [place]ulatory [place] 1 [facility] ing:LABSPEC Repository 06/20/2017 [id number] Ambulatory [place] 5 [facility] ing:US Repository 05/01/2017 [id number] Ambulatory [place] 4 [facility] ing:BI Repository FUNCTIONAL STATUS FUNCTIONAL STATUS No Functional Status Records FoundEQUIPMENT EQUIPMENT No Equipment Records FoundPAYERS PAYERS ENCOUNTER GUARANTOR PAYER SUBSCRIBER SOURCE 04/10/2018 KYLE Primary KYLE OHIP Practices RICKLYDOB: Insurance:[employer] RICKLYDOB: Repository [id number] icy Number: [id number] [facility] [id number] [address] [place] [address], Date:2450-96-91[address] [address]Aog: Name:[facility] [address]Gio: [address] [place] [address] ([place])Tel: [phone]: [phone] 04/08/2018 KYLE G Primary KYLE G [place] [id number] TR Insurance:[employer]ULTCAREPol RICKLYDOB: [address] Number: [id number] [facility] [address]Dvk: [id number] Repository Date:3466-90-75MS BOX () [address] [place] [address]CS: 04/08/2018 Secondary NOT GIVENUNK [place] Insurance:SELF PAY [facility] Number: Effective Repository Date:2018-04-08 04/05/2018 KYLE G Primary KYLE G [place] [id number] TR Insurance:AULTCAREPol RICKLYDOB: [address] icy Number: [id number] Women's Hospital [address]Elb: [id number] Repository Date:9033-39-66PL [address] () [address], [place] [address]DD: 04/05/2018 Secondary NOT GIVENUNK [place] Insurance:SELF PAY [facility] Number: Effective Repository Date:2018-04-05 04/05/2018 KYLE Posadas Primary KYLE Posadas [place] [id number] TR Insurance:AULTCAREPol RICKLYDOB: [address] Number: [id number] Women's Hospital [address]Vwo: [id number] Repository Date:5211-49-37BZ [address] () [address], [place] [address]KJ: 04/05/2018 Secondary NOT GIVENUNK [place] Insurance:SELF PAY [facility] Number: Effective Repository Date:2018-04-05 06/20/2017 Kyle Posadas Primary Kyle Posadas [place] [id number] TR Insurance:AULTCAREPol RicklyDOB: [address] Number: [id number] Women's Hospital [address]Hmj: [id number] Repository Date:1043-05-25XB BOX () [address] [place] [address]FO: 06/20/2017 Secondary NOT GIVENUNK [place] Insurance:SELF PAY [facility] Number: Effective Repository Date:2017-06-04 05/01/2017 Kyle Posadas Primary Kyle Posadas [place] [id number] TR Insurance:AULTCAREPol RicklyDOB: [address] Number: [id number] Women's Hospital [address]Wgz: [id number] Repository Date:5141-32-21RG [address] () [address], [place] [address]EO: 05/01/2017 Secondary NOT GIVENUNK [place] Insurance:SELF PAY [facility] Number: Effective Repository Date:2017-02-12 SOCIAL HISTORY SOCIAL HISTORY No Social History Records FoundFAMILY HISTORY FAMILY HISTORY No Family History Records FoundADVANCE DIRECTIVES ADVANCE DIRECTIVES No Advanced Directives Records FoundINFORMATION SOURCE INFORMATION SOURCE DATE CREATED AUTHOR AUTHOR'S ORGANIZATION 04/14/2018 OHIP
== END ==
PROVIDERS: Family Provider Internal Medicine; PCP Internal Medicine; Visit Provider Internal Medicine
DX: R06.02 Shortness of breath (principal); R74.9 Abnormal serum enzyme level, unspecified
CPT/HCPCS: 71275; Q9967

== ENCOUNTER → 2018-04-16 08:03 | Outpatient (CLI) | payer OTHER, SELFPAY ==
[2018-04-08 10:54] VITALS: BMI 31.1
--- NOTE | 2018-04-16 08:40 | ECHOCS_ITS ---
Reason For Study: SOB Procedure This was a 2D Doppler, Color Flow transthoracic echocardiogram. The study was technically difficult. Contrast injection was performed. Exam performed in department. Left Ventricle Normal LV size. Left ventricular systolic function is normal. The estimated ejection fraction is 60 %. Transmitral doppler flow suggestive of impaired relaxation of left ventricle. No regional wall motion abnormalities noted. Right Ventricle Normal RV size. Normal systolic function. Atria Normal left atrium. Normal right atrium. No doppler evidence for ASD. Mitral Valve There is no mitral annular calcification. Normal mitral valve. Trivial mitral valve insufficiency. Tricuspid Valve Normal tricuspid valve. Trivial tricuspid valve insufficiency. Unable to estimate RV systolic pressure/pulmonary artery pressure due to technically difficult study. Aortic Valve Trisinus/trileaflet aortic valve. Mild diffuse aortic valve thickening. Pulmonic Valve The pulmonic valve is not well visualized. Trivial pulmonic valve insufficiency. Great Vessels Normal sized aortic root. Pericardium/Pleural No pericardial effusion. Medication 22 gauge I.V. with prn adaptor inserted into right arm. Diluted definity 2ml given slow IV push to enhance endocardial definition. MMode/2D Measurements & Calculations LVIDd: 4.7 cm IVSd: 0.79 cm Ao root diam: 3.4 cm LVIDs: 3.5 cm LVPWd: 0.62 cm LA dimension: 2.6 cm FS: 25.5 % LAV(MOD-bp): 25.7 ml LVAd ap4: 29.8 cm2 SV(MOD-sp4): 63.1 ml LAV(MOD-bp) Indexed: 14.6 ml/m2 EDV(MOD-sp4): 101.1 ml LAV(MOD-sp2): 24.7 ml EDV(sp4-el): 102.8 ml LAV(MOD-sp4): 25.1 ml LVAs ap4: 16.6 cm2 ESV(MOD-sp4): 37.9 ml ESV(sp4-el): 38.0 ml EF(MOD-sp4): 62.5 % EF(sp4-el): 63.0 % SV(sp4-el): 64.8 ml LA A4 area: 11.7 cm2 Time Measurements MV dec time: 0.26 sec Doppler Measurements & Calculations MV E max ulices: 61.1 cm/sec Lat Peak E' Ulices: 14.5 cm/sec Med Peak E' Ulices: 11.8 cm/sec MV A max ulices: 101.5 cm/sec E/E' lat: 4.2 E/E' med: 5.2 MV E/A: 0.60 MV V2 max: 100.3 cm/sec MV P1/2t max ulices: 74.4 cm/sec Ao V2 max: 123.9 cm/sec MV max P.0 mmHg MV P1/2t: 70.8 msec Ao max P.1 mmHg MV V2 mean: 52.4 cm/sec MV mean P.3 mmHg MV dec slope: 307.9 cm/sec2 MV V2 VTI: 22.2 cm MVA(P1/2t): 3.1 cm2 LV V1 max: 100.4 cm/sec PA V2 max: 97.3 cm/sec LV V1 max P.0 mmHg Interpretation Summary The study was technically difficult. Contrast injection was performed. Left ventricular systolic function is normal. The estimated ejection fraction is 60 %. Trivial mitral valve insufficiency. Trivial tricuspid valve insufficiency. Mild diffuse aortic valve thickening. Trivial pulmonic valve insufficiency. Unable to estimate RV systolic pressure/pulmonary artery pressure due to technically difficult study. Transmitral doppler flow suggestive of impaired relaxation of left ventricle Ordering Physician: Nette Snow Referring Physician: Nette Snow Performed By: Fredi Rowe RCS
--- NOTE | 2018-04-16 14:10 | SPIR ---
Spirometry PFT Testing Spirometry PFT Testing: INTRODUCTION: The patient is a 42-year-old female that presents for spirometry secondary to a diagnosis of shortness of breath. Respiratory therapy reports good patient effort. Bronchodilators were used during testing. INTERPRETATION: Forced expiration spirometry demonstrates no evidence of a large airways obstructive ventilatory defect. There is no significant response to aerosolized bronchodilators, based upon strict ATS criteria. Spirograms are of good quality and plateau normally. The respiratory flow volume loop appears normal. IMPRESSION: Normal spirometry.
== END ==
PROVIDERS: Family Provider Internal Medicine; PCP Internal Medicine; Referring Provider Internal Medicine; Visit Provider Internal Medicine
DX: R06.02 Shortness of breath (principal)
CPT/HCPCS: 93306; 94060; Q9957; C8929

== ENCOUNTER → 2018-04-26 13:50 | Outpatient (CLI) | payer OTHER, SELFPAY ==
[2018-04-08 10:54] VITALS: BMI 31.1
--- NOTE | 2018-04-26 13:53 | BI_ITS ---
MAMMOGRAPHY - BILATERAL DIAGNOSTIC REASON FOR EXAM: Female, 43 years old. Tender palpable abnormality in the upper lateral portion of the left breast. PERTINENT HISTORY: Non-contributory. TECHNIQUE: Digital bilateral breast jimbo (3D mammographic acquisition) in the CC and MLO projections. 2-D mediolateral oblique (MLO) and craniocaudad (CC) views of both breasts were obtained. CAD: Full Field Digital Mammography with Computer Added Detection was performed. COMPARISON: Comparison is made with prior mammogram dated May 01, 2017 and February 03, 2016. FINDINGS: Breast Composition: The breasts are extremely dense, which lowers the sensitivity of mammography. There are no dominant masses or suspicious calcifications. No other significant abnormalities are identified. There has been no significant change since the prior study. BI/DIAG MAMM W/CAD, BILAT IMPRESSION: Stable bilateral diagnostic mammogram. With the patient's history of a palpable lump in the left breast, correlation with ultrasound is recommended. ASSESSMENT CATEGORY: BIRADS Category 0: Incomplete. Need additional imaging evaluation. A letter regarding these results will be sent to the patient by the facility within 30 days. Approximately 10% of breast cancers are not detected by mammography. A normal mammogram should not delay biopsy of a clinically suspicious abnormality. Electronically Signed: Esteban Ashley MD at 15:23 EST , Service support ,
--- NOTE | 2018-04-26 13:53 | US_ITS ---
STUDY: ULTRASOUND BREAST - LEFT REASON FOR EXAM: Female, 43 years old. Palpable lump left breast. TECHNIQUE: Axial and longitudinal images of the LEFT breast were performed with a high resolution ultrasound transducer. COMPARISON: Comparison is made with prior mammogram the neural candidate. FINDINGS: LEFT Breast: There is a 1.1 cm x 0.9 cm x 0.4 cm well-defined hypoechoic nodule with central increased echotexture at the 6:00 position of the breast at 4 son was from the nipple this most likely represents a small lymph node. US/Breast Limited Unilateral IMPRESSION: Findings suggestive of 1.1 cm x 0.9 cm x 0.4 cm lymph node at the 6:00 position of the breast at 4 cm from the nipple. ASSESSMENT CATEGORY: BIRADS Category 2: Benign. A letter regarding these results will be sent to the patient by the facility within 30 days. Electronically Signed: Esteban Ashley MD at 8:45 EST , Service support ,
== END ==
PROVIDERS: Family Provider Internal Medicine; PCP Internal Medicine; Referring Provider Obstetrics & Gynecology; Visit Provider Obstetrics & Gynecology
DX: R92.8 Other abnormal and inconclusive findings on diagnostic imaging of breast (principal); N63.20 Unspecified lump in the left breast, unspecified quadrant
CPT/HCPCS: 76642; 77062; 77066; G0279

== ENCOUNTER → 2018-07-19 13:02 | Outpatient (CLI) | payer OTHER, SELFPAY ==
[2018-07-09 09:59] VITALS: BMI 31.1
--- NOTE | 2018-07-19 12:49 | HP.PCM_ITS ---
History and Physical Date of Admission: 07/19/18 [facility] [address] [place], [place] [address] OFFICE VISIT Date of Service: 07/09/18 MR#: [id number] Acct: [id number] Name: KYLE FARMER Rep #: [id number] : 1975 Provider: Aquiles Zepeda MD Age/Sex: 43/F Location: [facility] Status: Signed Intake Vital Signs 07/09/18 Body Mass Index (BMI) 31.1 07/09/18 Height 5 ft 2 in 07/09/18 Weight: 160 lb 9 oz 07/09/18 Body Mass Index (BMI) 29.3 07/09/18 Blood Pressure 123/82 H 07/09/18 Blood Pressure Location Rt brachial 07/09/18 Blood Pressure Position Sitting 07/09/18 Respiratory Rate 16 07/09/18 Pulse Rate 75 07/09/18 Pulse Ox 100 Intake Visit Reasons: nevus left breast, lymph node? u/s & diane @ 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 Is patient in pain?: No Allergies No Known Allergies Allergy (Verified 07/09/18 09:57) Medications NK 04/08/18 [History Confirmed 07/09/18] Is last menstrual period known: No Post menopausal: No Patient : [facility] Medical History Endometriosis (Acute) Heart murmur (Acute) History of infertility (Acute) Thrombophilia (Acute) pre diabetic (Acute) Surgical History delivery delivered (Acute) History of LAVH (Acute) History of cholecystectomy (Acute) History of tonsillectomy (Acute) Family History Father Diabetes Heart disease Mother Heart disease Hyperlipidemia Social History Smoking Status: Never smoker alcohol intake: never substance use type: does not use caffeine: No what type of physical activity do you participate in: none seatbelt use: always do you feel safe at home: Yes additional social history: [facility] [place] Patient works at [employer] HPI HPI HPI: KYLE RICKLY, is a 43 F who presents to the office today for HPI HPI Surgical H&P: Yes HPI: KYLE FARMER, is a 43 F who presents to the office today for who presents for the evaluation of a left breast lump and abnormal mammogram and ultrasound to her left breast. Patient had a mole removed from the inferior aspect of her left breast this was reportedly coming back as atypical melanocytes. She has had a lump in the lower half of her left breast for approximately 2 months. A mammogram and ultrasound was completed which showed a 1.1 cm lymph node at the 6 o'clock position of the left breast approximately 4 cm from the nipple areolar complex. The area is nontender and she has had no reported trauma to the area. ROS General General: No weight change, appetite, fatigue, colon cancer, breast cancer or weakness HEENT HEENT: No difficulty swallowing, eye injury, eye surgery, swollen glands or hoarseness Endo Endocrine: No thyroid disease, diabetes mellitus, thyroid cancer, Hair loss, heat intolerance or cold intolerance Breast Breast: Yes left breast lump; no right breast lump, nipple discharge, breast pain, abnormal mammogram, abnormal US or breast enlargement Cardio Cardiovascular: No murmur, pacemaker, heart disease, atrial fibrillation, high blood pressure, heart attack, heart stent, palpitations, shortness of breat with exertion or chest pain Resp Respiratory: No shortness of breath, No sleep apnea, No cough, No COPD, No asthma, No emphysema, No wheezing Gastro Gastrointestinal: No abdominal pain, No nausea or vomiting, No diarrhea, No constipation, No blood in stool, No acid reflux, No hemorrhoids, No ulcers, No gallbladder problem, No black,tarry stools Bruce Hematologic: No blood thinners, Yes blood disorders, No bleeding, No anemia, No blood clots Additional Details: Thrombophilia Neuro Neurologic: No weakness Exam [facility] Head: normal to inspection, normocephalic, atraumatic Mouth: oropharynx normal, moist mucous membranes Eyes General: appearance normal, both eyes and all related structures Sclera: sclerae normal Neck Neck: trachea midline, no lymphadenopathy noted Neck mass: No Thyroid: thyroid normal Lymphatic: no lymphadenopathy noted Chest Breast inspection: normal inspection of the breasts Breast Palpation: No nipple discharge Other: Scar in the lower half of the left breast just medial to that is this palpable area it feels more like breast tissue than an actual lymph node. Resp Other: Respiratory Exam: Deferred Cardio Heart Sounds: no murmurs Other: Cardiac Exam: Deferred GI Other: GI Exam: Deferred Other: Rectal Exam: Deferred Extrem Other: Extremity Exam: Deferred Assessment & Plan Problems 1. Abnormal mammogram of left breast R92.8 Plan I have discussed above with the patient. I have recommended ultrasound guided needle core breast biopsy with vacuum assistance. I have described the procedure to the patient. I have discussed with the patient that sometimes the ultrasound lesion may be artifact and is user dependent and therefore prior to undergoing the procedure, the patient will have a definitive US to ensure that the lesion is truly present and is not artifact. A marker clip will be placed to identify the location. Patient has been counseled to the risks/benefits of the procedure. I have explained the risks of the surgery, including but not limited to: infection, bleeding, injury to any blood vessels/nerves, scar tissue, missing the lesion, further surgery, etc. - the patient understands and agrees to proceed. I have answered all of the patient's questions to her satisfaction and she has no further questions. Coding Level of Care Code Off vis,new,level 3 Diagnoses Abnormal mammogram of left breast R92.8 07/09/18 1215 <Electronically signed by Aquiles Zepeda MD> Date Aquiles Zepeda MD Cosigner Signature: Date (if applicable) CC: Nette Snow DO; Zayra Virk MD ~ I have re-examined the patient. There are no clinical changes since date of exam.
--- NOTE | 2018-07-19 13:10 | US_ITS ---
STUDY: ULTRASOUND BREAST - LEFT REASON FOR EXAM: Female, 43 years old. Biopsy left breast. TECHNIQUE: Axial and longitudinal images of the LEFT breast were performed with a high resolution ultrasound transducer. COMPARISON: None. FINDINGS: LEFT Breast: Submitted images demonstrate large bore, ultrasound-guided core biopsy of an ovoid, predominantly hypoechoic, 1.1 x 0.9 x 0.4 cm focus in the left breast 6:00 position 4 cm from the nipple. US/US Breast Biopsy 1st Lesion IMPRESSION: Submitted images demonstrate large bore, ultrasound-guided core biopsy of an ovoid, predominantly hypoechoic, 1.1 x 0.9 x 0.4 cm focus in the left breast 6:00 position 4 cm from the nipple. ASSESSMENT CATEGORY: BIRADS Category 2: Benign. A letter regarding these results will be sent to the patient by the facility within 30 days. Pathology is pending. Comment: Ultrasound services provided for clinical procedure. Please refer to operating physician's procedure note for additional detail. Electronically Signed: Reuben Gonzalez MD at 14:57 EDT , Service support ,
--- NOTE | 2018-07-19 13:30 | BRBX_PTH ---
PATIENT: KYLE FARMER LOC: [facility]#:[id number] AGE/SX: 49/F ROOM: RE07/19/[address]: Dr. Aquiles Zepeda MD : 1975 BED: DIS: SPEC #: [id number] RECD: 07/19/18 13:45 STATUS: PEPE PAULA #: [id number] NADIYA: 07/19/18 13:[address]: Aquiles Zepeda DEPT: SURGICAL PATHOLOGY RECD BY: Brandon Caballero ENTERED: 07/19/18 14:17 SP TYPE: BREAST BX OTHR DR: Dr. Nette Snow DO Tissues: Left breast, NOS Procedures: Surgery Specimen Level IV HEADER OPERATION: Left breast biopsy 6 o'clock, 4 cm from nipple PRE-OP DIAGNOSIS: Left breast 6 o'clock, 4 cm from nipple TISSUE SUBMITTED: Left breast biopsy 6 o'clock, 4 cm from nipple ISCHEMIC TIME: 1 minute FIXATION TIME: 54 hours MICROSCOPIC DIAGNOSIS Left breast, 6 o'clock, 4 cm from the nipple, core biopsy: Fragments of benign breast tissue with dense fibrosis. Negative for atypia or malignancy. SHOBHA:mare 07/22/18 COMMENT Correlation with clinical, radiologic findings and appropriate follow up are necessary. MICROSCOPIC DESCRIPTION Slides are reviewed. GROSS DESCRIPTION Received is one container labeled with the patient's name and not further designated. The specimen consists of multiple elongated fragments of case-yellow fibroadipose tissue that in aggregate measure 2 x 1.5 x 0.1 cm. The entire specimen is submitted in one cassette. / SHOBHA:mare 07/19/18 TC:5 CPT: 20681
--- NOTE | 2018-07-19 13:32 | OP.PCM_ITS ---
Problem List (1) Abnormal mammogram of left breast Status: Acute Report of Operation Date of Procedure: 07/19/18 Pre-Operative Diagnosis: Abnormal mammogram left breast Post-Operative Diagnosis: Same Surgery/Procedure Performed:: Ultrasound-guided handheld mammotome breast biopsy left breast Description of Procedure: Patient was brought into the ultrasound unit. Placed in the supine position. Left breast was ultrasound at the 6 o'clock position. Lesion was identified. The breast was prepped with chlorhexidine. 1% lidocaine plain was injected. Under ultrasound guidance I directed local posterior to the lesion. Skin enrique was made. Hand-held mammotome needle was directed under ultrasound guidance posterior to the lesion. Numerous biopsies were obtained. Under ultrasound g uidance a small titanium clip was placed. Sterile dressings were applied. The patient tolerated the procedure well. - Admit VTE Documentation VTE Present on Admission: No VTE Mechan Device Prophylaxis: None VTE Pharm Prophylaxis ordered?: No Reason prophylaxis not ordered:: Treatment Not Indicated
== END ==
PROVIDERS: Family Provider Internal Medicine; PCP Internal Medicine; Referring Provider Surgery; Visit Provider Surgery
DX: N60.32 Fibrosclerosis of left breast (principal); R73.03 Prediabetes
CPT/HCPCS: 19083; 88305

== ENCOUNTER → 2018-08-20 12:18 | Outpatient (CLI) | payer SELFPAY ==
[2018-04-08 10:54] VITALS: BMI 31.1
[2018-07-09 09:59] VITALS: BMI 31.1
--- NOTE | 2018-08-20 12:27 | CT_ITS ---
HISTORY: HYPERLIPIDEMIA. CCalcium scoring study overread EXAMINATION: CT Heart Quantitative coronary calcium W/O contrast TECHNIQUE: Helically acquired images were obtained of the chest. A radiation dose optimization technique was used for this scan. IV Contrast dosage and agent: None. COMPARISON: 04/05/18 CTA chest. FINDINGS: UPPER ABDOMEN: No acute pathology. HEART AND PERICARDIUM: Heart size is normal. There is no pericardial effusion. VESSELS: Thoracic aorta is not dilated. MEDIASTINUM AND EB: There is no mediastinal or hilar adenopathy. Esophagus is unremarkable. There is no hiatal hernia. LUNGS AND LARGE AIRWAYS: Clear. No pneumothorax. PLEURA: Unremarkable. No pleural effusion or thickening. BONES: No suspicious lytic or blastic abnormality observed. CT/Limited Chest CT w/CCTA IMPRESSION: Negative CT chest without contrast. Individualized dose optimization techniques were used for this CT. at 0420 Reported and signed by: Juan Carlos Sharpe MD Electronically Signed: Juan Carlos Sharpe, at 4:19 EDT Tel , Service support ,
--- NOTE | 2018-08-20 12:27 | CT_ITS ---
HISTORY: HYPERLIPIDEMIA. CCalcium scoring study overread EXAMINATION: CT Heart Quantitative coronary calcium W/O contrast TECHNIQUE: Helically acquired images were obtained of the chest. A radiation dose optimization technique was used for this scan. IV Contrast dosage and agent: None. COMPARISON: 04/05/18 CTA chest. FINDINGS: UPPER ABDOMEN: No acute pathology. HEART AND PERICARDIUM: Heart size is normal. There is no pericardial effusion. VESSELS: Thoracic aorta is not dilated. MEDIASTINUM AND EB: There is no mediastinal or hilar adenopathy. Esophagus is unremarkable. There is no hiatal hernia. LUNGS AND LARGE AIRWAYS: Clear. No pneumothorax. PLEURA: Unremarkable. No pleural effusion or thickening. BONES: No suspicious lytic or blastic abnormality observed. CT/CCTA Calcium Scoring IMPRESSION: Negative CT chest without contrast. Individualized dose optimization techniques were used for this CT. at 0420 Reported and signed by: Juan Carlos Sharpe MD Electronically Signed: Juan Carlos Sharpe, at 4:19 EDT Tel , Service support ,
[2018-08-20 12:46] VITALS: BP 106/46; PULSE 57; RESP 18; O2SAT 98; BMI 30.2
--- NOTE | 2018-08-21 07:25 | CA.SCORE ---
Calcium Scoring Date of Study:: 08/21/18 Coronary Calcium Scoring: High-resolution Computed Tomographic imaging of the chest was performed on [08/20/2018 ], with particular attention paid to the coronary arteries. Images from the examination were analyzed for the presence and extent of coronary artery calcification , using coronary calcium quantification software. The patient tolerated the procedure well and there were no complications. The results of the coronary calcification analysis are provided below. - Findings Left Main (LM): 0 Left Anterior Descending (LAD): 0 Left Circumflex (LCX): 0 Right Coronary Artery (RCA): 0 Total Agatston Score: 0 Percentile Rankin - Conclusion Calcium Scoring Interpretation: Calcium Score Interpretation 0 No identifiable atherosclerotic plaque. Very low cardiovascular disease risk. <5% chance of presence coronary artery disease A Negative Examination 1-10 Minimal Plaque burden. Significant coronary artery disease very unlikely. 11-100 Mild plaque burden. Likely mild or minimal coronary atherosclerosis. 101-400 Moderate plaque burden Moderate non-obstructive coronary artery disease highly likely. Over 400 Extensive plaque burden. High likelihood of at least one significant coronary stenosis (>50% diameter) Calcium Score: 0 Negative Examination - The above is suggestive of no atherosclerosis. A full evaluation of cardiac risk factors should include assessment of all conventional risk factors as well.
== END ==
PROVIDERS: Family Provider Internal Medicine; PCP Internal Medicine; Referring Provider Internal Medicine; Visit Provider Internal Medicine
DX: E78.5 Hyperlipidemia, unspecified (principal); N63.23 Unspecified lump in the left breast, lower outer quadrant
CPT/HCPCS: 75571; 76380

== ENCOUNTER → 2019-03-26 10:36 | Outpatient (CLI) | payer OTHER, SELFPAY ==
[2018-08-20 12:46] VITALS: BMI 30.2
--- NOTE | 2019-03-26 10:50 | RAD_ITS ---
STUDY: X-RAY - LEFT SHOULDER REASON FOR EXAM: Female, 43 years old. LEFT SHOULDER PAIN; -- NO KNOWN TRAUMA TECHNIQUE: 3 view(s) of the shoulder. COMPARISON: None. FINDINGS: Normal glenohumeral articulation. There is degenerative arthrosis of the acromioclavicular joint without inferior osseous spur formation. Normal acromion. Normal humeral head and visualized proximal humerus. The soft tissue structures are unremarkable. Normal visualized pulmonary apex. RAD/Shoulder min 2 Views IMPRESSION: Acromioclavicular joint arthrosis. Electronically Signed: Logan Ribeiro MD (Brooks) at 15:56 EST , Service support ,
== END ==
PROVIDERS: Family Provider Internal Medicine; PCP Internal Medicine; Referring Provider Internal Medicine; Visit Provider Internal Medicine
DX: M25.511 Pain in right shoulder (principal)
CPT/HCPCS: 73030

== ENCOUNTER → 2019-04-19 07:11 | Outpatient (CLI) | payer OTHER, SELFPAY ==
[2018-08-20 12:46] VITALS: BMI 30.2
--- NOTE | 2019-04-19 07:19 | MRI_ITS ---
STUDY: MRI LEFT SHOULDER REASON FOR EXAM: Female, 43 years old. LEFT SHOULDER PAIN -- nki, pain anterior shoulder and armpit x 6 months, motion ok but painful TECHNIQUE: Standardized fat and water weighted pulse sequences were obtained in all 3 orthogonal planes. COMPARISON: X-ray March 26, 2019 FINDINGS: There is supraspinatus tendinosis with tendon thickening, but without a demonstrated tendon tear. Normal infraspinatus tendon. Normal subscapularis tendon. Normal teres minor tendon. Normal supraspinatus muscle. Normal infraspinatus muscle. Normal subscapularis muscle. Normal teres minor muscle. Normal glenohumeral articulation. Normal humeral head and visualized proximal humerus. Normal biceps labral complex. Normal intracapsular long biceps tendon. Normal labrum. Normal capsulo- ligamentous complex. Normal rotator interval. There is moderate osteoarthritis of the acromioclavicular articulations. There is a Type II morphology (curved) acromion, with a neutral orientation. There is no subacromial-subdeltoid bursal fluid. Normal visualized coracohumeral and coracoacromial ligaments. Normal quadrilateral space. Normal axillary space. Normal deltoid muscle. Normal trapezius muscle. MRI/Upper Ext Joint Only(Routine) IMPRESSION: Tendinosis of the supraspinatus. No full-thickness rotator cuff tear. Acromioclavicular arthrosis. Electronically Signed: Cornel Cancino MD at 10:07 EST , Service support ,
== END ==
LOC: MRI 07:12
PROVIDERS: PCP Internal Medicine; Referring Provider Internal Medicine; Visit Provider Internal Medicine
DX: M25.512 Pain in left shoulder (principal)
CPT/HCPCS: 73221

== ENCOUNTER → 2019-05-24 08:20 | Outpatient (CLI) | payer OTHER, SELFPAY ==
[2018-08-20 12:46] VITALS: BMI 30.2
--- NOTE | 2019-05-24 08:20 | BI_ITS ---
MAMMOGRAPHY - BILATERAL SCREENING REASON FOR EXAM: Female, 44 years old. Routine annual screening examination. PERTINENT HISTORY: Non-contributory. TECHNIQUE: Digital bilateral breast adarsh (3D mammographic acquisition) in the CC and MLO projections. 2-D mediolateral oblique (MLO) and craniocaudad (CC) views of both breasts were obtained. CAD: Full Field Digital Mammography with Computer Added Detection was performed. COMPARISON: Comparison is made with prior examination dated April 26 2018 and May 01, 2017. FINDINGS: Breast Composition: The breasts are extremely dense, which lowers the sensitivity of mammography. There are no dominant masses or suspicious calcifications. Stable small benign-appearing bilateral axillary lymph nodes. A tissue clip marker is seen in the deep aspect of the left breast on the craniocaudad view. No other significant abnormalities are identified. There has been no significant change since the prior study. BI/SCREEN MAMM (CAD) W/ADARSH BILAT IMPRESSION: Stable bilateral screening mammogram. Yearly follow-up mammogram recommended. (A) ASSESSMENT CATEGORY: BIRADS Category 2: Benign. A letter regarding these results will be sent to the patient by the facility within 30 days. Approximately 10% of breast cancers are not detected by mammography. A normal mammogram should not delay biopsy of a clinically suspicious abnormality. [id number] Electronically Signed: Esteban Ashley, at 8:51 EDT , Service support ,
== END ==
PROVIDERS: PCP Internal Medicine; Referring Provider Obstetrics & Gynecology; Visit Provider Obstetrics & Gynecology
DX: Z12.31 Encounter for screening mammogram for malignant neoplasm of breast (principal)
CPT/HCPCS: 77063; 77067

== ENCOUNTER → 2019-05-28 15:47 | Outpatient (CLI) | payer OTHER, SELFPAY ==
[2018-08-20 12:46] VITALS: BMI 30.2
--- NOTE | 2019-05-28 15:50 | US_ITS ---
STUDY: THYROID ULTRASOUND REASON FOR EXAM: Female, 44 years old. RT THYROID MASS TECHNIQUE: Ultrasound evaluation of the thyroid was performed with real-time and static livingston-scale imaging. COMPARISON: 06/20/2017. FINDINGS: RIGHT LOBE: The right lobe of the thyroid gland measures 4.9 x 1.5 x 1.7 cm. There is a homogeneous echotexture. Mostly anechoic cyst in the lower pole measuring 0.8 x 0.6 x 0.5 cm. This has regular margins with perinodular Doppler vascularization. LEFT LOBE: The left lobe of the thyroid gland measures 4.8 x 1.7 x 1.5 cm. There is a homogeneous echotexture. Mostly anechoic cyst with focal eccentric calcification in the upper pole measuring 0.8 x 0.6 x 0.7 cm. ISTHMUS: The isthmus measures 3 mm. US/Thyroid IMPRESSION: 1. Small anechoic cyst in the lower pole of the right thyroid lobe and small anechoic cyst in the upper pole of the left thyroid lobe. 2. No significant interval change when compared to 06/20/2017. Electronically Signed: Lucian Gomez MD at 13:07 EDT , Service support ,
== END ==
PROVIDERS: PCP Internal Medicine; Referring Provider Internal Medicine; Visit Provider Internal Medicine
DX: E07.9 Disorder of thyroid, unspecified (principal)
CPT/HCPCS: 76536

== ENCOUNTER → 2019-08-27 11:26 | Outpatient (CLI) | payer OTHER, SELFPAY ==
[2019-08-12 09:56] VITALS: BMI 30.2
--- NOTE | 2019-08-27 11:30 | RAD_ITS ---
STUDY: X-RAY - LEFT WRIST REASON FOR EXAM: Female, 44 years old. PAIN, SWELLING TECHNIQUE: 3 view(s) of the wrist were obtained. COMPARISON: None. FINDINGS: Normal visualized distal radius and ulna. Normal radiocarpal articulation. Normal distal radioulnar articulation. Normal carpal bones. Normal carpal articulations. Normal carpometacarpal articulation of the thumb. Normal second through fifth carpometacarpal articulations. Normal visualized metacarpal bones. The soft tissue structures are unremarkable. RAD/Wrist min 3 Views IMPRESSION: Normal x-ray examination of the wrist. Electronically Signed: Esteban Ashley, at 12:22 EDT , Service support ,
--- NOTE | 2019-08-27 11:30 | RAD_ITS ---
STUDY: X-RAY - LEFT HAND REASON FOR EXAM: Female, 44 years old. PAIN, SWELLING TECHNIQUE: 3 view(s) of the hand. COMPARISON: None. FINDINGS: Normal radiocarpal articulation. Normal distal radioulnar joint. Normal visualized carpal bones. Normal carpal articulations Normal carpometacarpal articulation of the thumb. Normal second through fifth carpometacarpal joints. Normal metacarpi. Normal metacarpophalangeal joint of the thumb. Normal interphalangeal joint of the thumb. Normal proximal and distal phalanges of the thumb. Normal metacarpophalangeal joints of the second through fifth fingers. Normal proximal and distal interphalangeal joints of the second through fifth fingers. Normal phalanges of the second through fifth fingers. Soft tissue swelling. RAD/Hand Min 3 Views IMPRESSION: Soft tissue swelling. Electronically Signed: Esteban Ashley, at 12:19 EDT , Service support ,
== END ==
PROVIDERS: PCP Internal Medicine; Referring Provider Internal Medicine; Visit Provider Internal Medicine
DX: M79.642 Pain in left hand (principal); M25.532 Pain in left wrist
CPT/HCPCS: 73110; 73130

== ENCOUNTER → 2020-01-21 13:41 | Outpatient (CLI) | payer OTHER, SELFPAY ==
[2019-08-12 09:56] VITALS: BMI 30.2
--- NOTE | 2020-01-21 14:00 | CT_ITS ---
STUDY: CT SOFT TISSUE NECK WITH CONTRAST REASON FOR EXAM: Female, 44 years old. MASS R SIDE OF NECK. 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 High resolution transaxial imaging was performed following intravenous administration of 75 ML OF ISOVUE 370. Sagittal and coronal images were reconstructed. Individualized dose optimization techniques were used for this CT. COMPARISON: None. FINDINGS: Normal bilateral parotid glands. Normal bilateral archives technician spaces. Normal bilateral parapharyngeal spaces. Normal bilateral carotid spaces. Normal bilateral sublingual and submandibular glands and spaces. Normal visualized nasopharynx. Normal retropharyngeal space. Normal perivertebral space. Normal visualized bilateral faucial tonsils. The visualized tongue, tongue base and oropharynx are normal. The visualized cervical lymph nodes (levels I-) are within normal size limits, and maintain normal morphology. There is no demonstrated solid or cystic mass lesion. There is no abnormal contrast enhancement. Normal epiglottis, bilateral vallecula and hypopharynx. The pre-epiglottic and paraglottic adipose spaces are normal. Normal visualized bilateral piriform sinuses, aryepiglottic folds, vocal cords, and arytenoid-cricoid articulations. Normal subglottic trachea. There is a 5.3 mm hypodensity in the anterior aspect of the right lobe of the thyroid gland. Normal visualized pulmonary apices. Normal visualized paranasal sinuses. Normal visualized cervical spine. CT/Soft Tissue Neck WITH Contrast IMPRESSION: 5.3 mm hypodensity in the anterior aspect of the right lobe of the thyroid. Electronically Signed: Esteban Ashley, at 14:38 EST , Service support ,
== END ==
PROVIDERS: PCP Internal Medicine; Referring Provider Internal Medicine; Visit Provider Internal Medicine
DX: R22.1 Localized swelling, mass and lump, neck (principal)
CPT/HCPCS: 70491; Q9967

== ENCOUNTER → 2020-02-06 09:55 | Outpatient (CLI) | payer OTHER, SELFPAY ==
[2019-08-12 09:56] VITALS: BMI 30.2
--- NOTE | 2020-02-06 09:56 | US_ITS ---
STUDY: SUPERFICIAL ULTRASOUND - RIGHT CERVICAL REGION. REASON FOR EXAM: Female, 44 years old. AREA OF PALP LUMP / SWELLING RT NECK -- POSSIBLE LIPOMA TECHNIQUE: A superficial ultrasound was performed with real-time and static livingston-scale imaging. COMPARISON: None. FINDINGS: The area of the palpable lump was examined by ultrasound. No sonographic abnormality is seen. 8mm by 7 mm x 5 mm cystic nodule is seen in the right lobe of the thyroid. US/Head/Neck Soft Tissue IMPRESSION: The palpable area was examined by ultrasound. No sonographic abnormality is seen. Electronically Signed: Esteban Ashley, at 12:35 EST , Service support ,
== END ==
PROVIDERS: PCP Internal Medicine; Referring Provider Internal Medicine; Visit Provider Internal Medicine
DX: R22.1 Localized swelling, mass and lump, neck (principal)
CPT/HCPCS: 76536

== ENCOUNTER → 2020-06-09 13:12 | Outpatient (CLI) | payer OTHER, SELFPAY ==
[2020-02-19 14:02] VITALS: BMI 31.0
--- NOTE | 2020-06-09 13:15 | BI_ITS ---
MAMMOGRAPHY - BILATERAL SCREENING REASON FOR EXAM: Female, 45 years old. Routine annual screening examination. PERTINENT HISTORY: Non-contributory. TECHNIQUE: Digital bilateral breast adarsh (3D mammographic acquisition) in the CC and MLO projections. 2-D mediolateral oblique (MLO) and craniocaudad (CC) views of both breasts were obtained. CAD: Full Field Digital Mammography with Computer Added Detection was performed. COMPARISON: Comparison is made with prior study 05/24/2019 and 04/26/2018. FINDINGS: Breast Composition: The breasts are extremely dense, which lowers the sensitivity of mammography. There are no dominant masses or suspicious calcifications. Stable benign-appearing bilateral axillary lymph nodes. No other significant abnormalities are identified. There has been no significant change since the prior study. BI/SCRN MAMM (CAD)W/ADARSH BILAT IMPRESSION: Stable bilateral screening mammogram. Yearly follow-up mammogram recommended. (A) ASSESSMENT CATEGORY: BIRADS Category 2: Benign. A letter regarding these results will be sent to the patient by the facility within 30 days. Approximately 10% of breast cancers are not detected by mammography. A normal mammogram should not delay biopsy of a clinically suspicious abnormality. [id number] Electronically Signed: Esteban Ashley MD at 14:15 EDT , Service support ,
== END ==
PROVIDERS: PCP Internal Medicine; Referring Provider Nurse Practitioner Women's Health; Visit Provider Nurse Practitioner Women's Health
DX: Z12.31 Encounter for screening mammogram for malignant neoplasm of breast (principal)
CPT/HCPCS: 77063; 77067

== ENCOUNTER → 2020-12-31 06:53 | Outpatient (CLI) | payer OTHER, SELFPAY ==
--- NOTE | 2020-12-31 06:58 | CT_ITS ---
STUDY: CT ABDOMEN AND PELVIS WITH CONTRAST REASON FOR EXAM: Female, 45 years old. RLQ PAIN. GB AND HYSTERECTOMY RADIATION DOSAGE (If Supplied By Facility): CTDIvol = ( 12.66 ) mGy, DLP = ( 577.79 ) mGycm TECHNIQUE: Transaxial images were obtained from the dome of the diaphragm to the symphysis pubis with oral contrast. Oral and amp;amp; IV Readi-CAT and amp;amp; 100mL Isovue-370 was administered. Sagittal and coronal images were reconstructed. Individualized dose optimization techniques were used for this CT. COMPARISON: None. FINDINGS: The visualized lung bases are unremarkable. The visualized portions of the heart are within normal limits. Normal liver. There is non-visualization of the gallbladder, which may be secondary to either contraction or a prior cholecystectomy. Normal spleen. Normal pancreas. Normal bilateral adrenal glands. Normal right kidney. Normal left kidney. Normal visualized stomach. Normal small intestine. Large amount of stool throughout the colon suggestive of constipation. However, oral contrast is seen within the ascending colon. The appendix is visualized and appears normal. Normal abdominal aorta. Normal inferior vena cava. Normal retroperitoneum. Normal urinary bladder. Normal abdominal wall. Normal osseous structures. CT/Abdomen/Pelvis WITH Contrast IMPRESSION: Normal enhanced CT of the abdomen and pelvis. Possible constipation but oral contrast is seen in the ascending colon. Electronically Signed: Donte Mclaughlin MD at 8:36 EDT Tel , Service support ,
== END ==
PROVIDERS: PCP Internal Medicine; Visit Provider Internal Medicine
DX: R10.31 Right lower quadrant pain (principal)
CPT/HCPCS: 74177; Q9967; A4216

== ENCOUNTER → 2021-12-22 | Outpatient (CLI) | payer OTHER, SELFPAY ==
--- NOTE | 2021-12-22 15:56 | US_ITS ---
STUDY: THYROID ULTRASOUND REASON FOR EXAM: Female, 46 years old. Thyroid nodule TECHNIQUE: Ultrasound evaluation of the thyroid was performed with real-time and static livingston-scale imaging. COMPARISON: 05/28/2019 FINDINGS: RIGHT LOBE: The right lobe of the thyroid gland measures 4.8 x 1.6 x 1.4 cm. There is a homogeneous echotexture. There is a small cyst in the midpole measuring 1 x 0.8 x 0.6 cm LEFT LOBE: The left lobe of the thyroid gland measures 4.1 x 1.7 x 1.2 cm. There is a homogeneous echotexture. There is a small cyst measuring 0.9 x .8 x 0.6 cm. ISTHMUS: The isthmus measures 9 mm . The regional lymph nodes are normal. No significant change since prior study US/Thyroid IMPRESSION: Small bilateral thyroid cysts. There is a minimal increase in size cyst in the right lobe since prior study likely of no significance. Electronically Signed: Ck Whyte MD at 22:39 EDT ,
== END | disposition home or self-care (01) ==
LOC: US 15:54
PROVIDERS: PCP Internal Medicine; Referring Provider Internal Medicine; Visit Provider Internal Medicine
DX: E04.1 Nontoxic single thyroid nodule (principal)
CPT/HCPCS: 76536

== ENCOUNTER → 2022-04-05 | Outpatient (CLI) | payer OTHER, SELFPAY ==
[2022-04-05 18:23] LABS: CRP < 2.90 mg/L (0.0-3.0)
[2022-04-07 16:09] LABS: Endomysial Antibody IgA Negative (Negative)
[2022-04-07 20:30] LABS: Immunoglobulin A 179 mg/dL (87-352); t-Transglutaminase IgA <2 U/mL (0-3)
== END | disposition home or self-care (01) ==
LOC: MTLAB 16:04
PROVIDERS: PCP Internal Medicine; Referring Provider Internal Medicine Gastroenterology; Visit Provider Internal Medicine Gastroenterology
DX: R19.7 Diarrhea, unspecified (principal)
CPT/HCPCS: 36415; 82784; 83516; 86140; 86255

== ENCOUNTER → 2022-12-11 | Outpatient (CLI) | payer OTHER, SELFPAY ==
[2022-12-11 17:50] LABS: Absolute Lymphocyte Count 3.36 X10^3/uL (0.83-4.51); Absolute Neutrophil Count 4.9 X10^3/uL (2.0-7.7); Basophil# 0.04 X10^3/uL; Basophil% 0.4 % (0-1); Eosinophil# 0.21 X10^3/uL; Eosinophils% 2.3 % (0-5); Hematocrit 39.7 % (37-47); Hemoglobin 13.3 g/dL (12.0-15.0); Lymphocyte # 3.36 X10^3/ul (0.83-4.51); Lymphocyte % 37.1 % (19-41); Mean Corp Hgb Conc 33.5 g/dL (32-36); Mean Corpuscular Hgb 31.4 pg (27.0-32.0); Mean Corpuscular Volume 93.6 fL (81-99); Monocyte# 0.57 X10^3/uL; Monocyte% 6.3 % (0-10); NRBC Flagged by Analyzer 0 % (0-5); Neutrophil # 4.85 X10^3/uL (2.7-7.7); Neutrophil % 53.7 % (47-70); Platelet Count 358 K/mm3 (150-450); RBC Distribution Width CV 12.7 % (11.6-14.6); RBC Distribution Width SD 43.7 fl (35.1-43.9); Red Blood Count 4.24 M/mm3 (4.2-5.4); White Blood Count 9.1 K/mm3 (4.4-11.0)
[2022-12-11 18:11] LABS: ALB/GLOB Ratio 1.2 RATIO (0.9-2.4); AST(SGOT) 26 U/L (15-37); Alanine Aminotransfer ALT/SGPT 36 U/L (13-56); Albumin, Serum 4.1 g/dL (3.2-5.0); Alkaline Phosphatase 61 U/L (45-117); Anion Gap 6 (5-15); BUN 21 mg/dL (7-18); BUN/Creat Ratio 24.4 RATIO (10-20); Calcium,Total 8.6 mg/dL (8.5-10.1); Chloride 104 mmol/L (98-107); Creatinine, Serum 0.86 mg/dL (0.55-1.02); EST Glomerular Filtration Rate 75 mL/min (>60); Est Glom Filt Rate - Afr Amer 91 mL/min (>60); Globulin 3.4 g/dL (2.2-4.2); Glucose 93 mg/dL (74-106); Potassium 3.4 mmol/L (3.5-5.1); Protein, Total 7.5 g/dL (6.4-8.2); Sodium Level 139 mmol/L (136-145); Thyroid Stim Hormone (TSH) 2.23 uIU/mL (0.358-3.74); Troponin-I HS 6 pg/mL (3.0-54.0)
== END | disposition home or self-care (01) ==
PROVIDERS: PCP Internal Medicine; Referring Provider Internal Medicine; Visit Provider Internal Medicine
DX: R07.89 Other chest pain (principal)
CPT/HCPCS: 36415; 80053; 84443; 84484; 85025

== ENCOUNTER → 2023-02-05 | Outpatient (CLI) | payer OTHER, SELFPAY ==
--- NOTE | 2023-02-05 15:46 | BI_ITS ---
MAMMOGRAPHY - BILATERAL SCREENING REASON FOR EXAM: Female, 47 years old. Routine annual screening examination. PERTINENT HISTORY: Non-contributory. History of prior left ultrasound-guided breast biopsy and left breast aspiration. TECHNIQUE: Digital bilateral breast adarsh (3D mammographic acquisition) in the CC and MLO projections. 2-D mediolateral oblique (MLO) and craniocaudad (CC) views of both breasts were obtained. CAD: Full Field Digital Mammography with Computer Added Detection was performed. COMPARISON: Comparison is made with prior study of June 09, 2020 and May 24, 2019. FINDINGS: Breast Composition: The breasts are extremely dense, which lowers the sensitivity of mammography. There are no dominant masses or suspicious calcifications. A tissue clip marker is seen in the deep central portion of the left breast. Stable small benign-appearing bilateral axillary lymph nodes. No other significant abnormalities are identified. There has been no significant change since the prior study. BI/SCRN MAMM (CAD)W/ADARSH BILAT IMPRESSION: Stable bilateral screening mammogram. Yearly follow-up mammogram recommended. (A) ASSESSMENT CATEGORY: BIRADS Category 2: Benign. A letter regarding these results will be sent to the patient by the facility within 30 days. Approximately 10% of breast cancers are not detected by mammography. A normal mammogram should not delay biopsy of a clinically suspicious abnormality. [id number] Electronically Signed: Esteban Ashley MD at 10:55 EST ,
== END | disposition home or self-care (01) ==
LOC: OPBI 15:46
PROVIDERS: PCP Internal Medicine; Referring Provider Nurse Practitioner Women's Health; Visit Provider Nurse Practitioner Women's Health
DX: Z12.31 Encounter for screening mammogram for malignant neoplasm of breast (principal)
CPT/HCPCS: 77063; 77067

== ENCOUNTER → 2023-03-09 | Outpatient (CLI) | payer OTHER, SELFPAY ==
[2023-03-09 12:12] LABS: ALB/GLOB Ratio 1.3 RATIO (0.9-2.4); AST(SGOT) 20 U/L (15-37); Alanine Aminotransfer ALT/SGPT 25 U/L (13-56); Albumin, Serum 3.9 g/dL (3.2-5.0); Alkaline Phosphatase 52 U/L (45-117); Anion Gap 1 (5-15); BUN 15 mg/dL (7-18); BUN/Creat Ratio 22.2 RATIO (10-20); Calcium,Total 9.1 mg/dL (8.5-10.1); Chloride 109 mmol/L (98-107); Creatinine, Serum 0.68 mg/dL (0.55-1.02); EST Glomerular Filtration Rate 99 mL/min (>60); Est Glom Filt Rate - Afr Amer 120 mL/min (>60); Globulin 3.1 g/dL (2.2-4.2); Glucose 105 mg/dL (74-106); Sodium Level 141 mmol/L (136-145)
== END | disposition home or self-care (01) ==
LOC: MTLAB 09:44
PROVIDERS: PCP Internal Medicine; Referring Provider Internal Medicine; Visit Provider Internal Medicine
DX: E87.6 Hypokalemia (principal)
CPT/HCPCS: 36415; 80053

== ENCOUNTER → 2023-04-19 | Outpatient (CLI) | payer OTHER, SELFPAY ==
--- NOTE | 2023-04-19 15:33 | BD_ITS ---
STUDY: DUAL ENERGY X-RAY ABSORPTIOMETRY / DXA REASON FOR EXAM: Female, 47 years old. V76.12ScreeningBONE DENSITY REASON FOR EXAM TECHNIQUE: Bone Mineral Density (BMD) measurements of lumbar spine and bilateral hips were obtained. COMPARISON: None. FINDINGS: Lumbar Spine (L1-L4): g/cm2 (1.361) / T-score (2.8) / Z-score (3.4) Findings are suggestive of normal bone density with a low fracture risk. Left Femur Total: g/cm2 (1.145) / T-score (1.7) / Z-score (2.0) Left Femoral Neck: g/cm2 (0.978) / T-score (1.2) / Z-score (1.7) Right Femur Total: g/cm2 (1.078) / T-score (1.1) / Z-score (1.5) Right Femoral Neck: g/cm2 (0.933) / T-score (0.8) / Z-score (1.3) BD/Dexa Bone Density Study IMPRESSION: The patient is considered normal as outlined below according to World Juan Organization (WHO) criteria with a low fracture risk. Reference Information: The T-score is the number of standard deviations above or below the standard which is normal for young adults at their peak bone mineral density. The World Health Organization (WHO) interprets the T-scores as follows: Above -1 Normal bone density Between -1 and -2.5 Osteopenia Equal to / or below -2.5 Osteoporosis As a practical clinical guideline, osteopenia may be graded as follows: Mild -1 through -1.5 Moderate -1.6 through -2.0 Severe -2.1 through -2.4 The Z-score is the number of standard deviations above or below age-matched controls. A Z-score of less than -1.5 would be considered abnormal. References: 1. NIH Osteoporosis and Related Bone Diseases www osteo.org 2. International Society for Clinical Densitometry www iscd.org 3. National Osteoporosis Foundation www nof.org Electronically Signed: Esteban Ashley MD at 14:33 EST ,
== END | disposition home or self-care (01) ==
LOC: OPBD 15:29
PROVIDERS: PCP Internal Medicine; Referring Provider Internal Medicine; Visit Provider Internal Medicine
DX: Z78.0 Asymptomatic menopausal state (principal)
CPT/HCPCS: 77080

== ENCOUNTER → 2024-02-07 | Outpatient (CLI) | payer OTHER, SELFPAY | END | disposition home or self-care (01) | LOC: OPBI 14:57 | PROVIDERS: PCP Internal Medicine; Referring Provider Nurse Practitioner Family; Visit Provider Nurse Practitioner Family | DX: Z12.31 Encounter for screening mammogram for malignant neoplasm of breast (principal) | CPT/HCPCS: 77063; 77067 ==

== ENCOUNTER → 2024-03-24 | Outpatient (CLI) | payer OTHER, SELFPAY ==
--- NOTE | 2024-03-24 15:06 | US_ITS ---
STUDY: THYROID ULTRASOUND REASON FOR EXAM: Female, 48 years old. Thyroid -- Mass on right side of neck TECHNIQUE: Ultrasound evaluation of the thyroid was performed with real-time and static livingston-scale imaging. COMPARISON: 12/22/2021. FINDINGS: RIGHT LOBE: The right lobe of the thyroid gland measures 4.6 x 1.5 x 1.5 cm. There is a homogeneous echotexture. Anechoic cyst in the caudal aspect of the right thyroid lobe containing tiny peripheral calcification. This measures 1.08 x 0.57 x 0.71 cm. LEFT LOBE: The left lobe of the thyroid gland measures 4.3 x 1.6 x 2 cm. There is a homogeneous echotexture. Anechoic cyst in the upper thyroid lobe containing central calcification measuring 0.75 x 0.76 x 0.67 cm. Solid hyperechoic nodule in the caudal aspect of the thyroid lobe measuring 0.60 x 0.36 x 0.33 cm. ISTHMUS: The isthmus measures 0.19 cm. . No obvious abnormality of the palpable lump in the right lateral neck. US/Thyroid IMPRESSION: 1. Anechoic cyst in the caudal aspect of the right thyroid lobe containing a small peripheral calcification measuring 1.08 x 0.57 x 0.71 cm, previously 0.80 x 0.97 x 0.55 cm. TI-RADS points: 0. TI-RADS category: TR1. This nodule is benign and no FNA or follow-up is necessary. 2. Anechoic cyst in the left upper thyroid lobe containing tiny central calcification measuring 0.5 x 0.76 x 0.67 cm, previously 0.76 x 0.90 x 0.60 cm. TI-RADS points: 0. TI-RADS category: TR1. This nodule is benign and no FNA or follow-up is necessary. 3. Solid hyperechoic nodule in the lateral aspect of the left thyroid lobe measuring 0.60 x 0.36 x 0.33 cm. This was not seen previously. TI-RADS points: 6. TI-RADS category: TR4. This nodule is moderately suspicious but no FNA or follow-up is necessary given the small size of this nodule. Electronically Signed: Lucian Gomez MD at 14:43 EST ,
== END | disposition home or self-care (01) ==
LOC: US 15:04
PROVIDERS: PCP Internal Medicine; Referring Provider Internal Medicine; Visit Provider Internal Medicine
DX: R22.1 Localized swelling, mass and lump, neck (principal)
CPT/HCPCS: 76536

== ENCOUNTER → 2024-04-23 | Outpatient (CLI) | payer OTHER, SELFPAY ==
[2024-04-23 16:03] LABS: Color, Urine Yellow (Yellow); Glucose, Dipstick Normal (Normal); Ketone-Dipstick Negative (Negative); Leukocyte Esterase-Dipstick Negative /ul (Negative); Nitrite-Dipstick Negative (Negative); Occult Blood-Urine Negative /ul (Negative); Protein-Dipstick Negative (Negative); Urine Bilirubin Dipstick Negative (Negative); Urine Clarity Clear (Clear); Urine Urobilinogen Normal (Normal)
[2024-04-23 16:04] LABS: Absolute Lymphocyte Count 3.32 X10^3/uL (0.83-4.51); Absolute Neutrophil Count 4.6 X10^3/uL (2.0-7.7); Basophil# 0.03 X10^3/uL; Basophil% 0.4 % (0-1); Eosinophil# 0.08 X10^3/uL; Eosinophils% 0.9 % (0-5); Hematocrit 38.3 % (37-47); Hemoglobin 12.7 g/dL (12.0-15.0); Lymphocyte # 3.32 X10^3/ul (0.83-4.51); Lymphocyte % 38.9 % (19-41); Mean Corp Hgb Conc 33.2 g/dL (32-36); Mean Corpuscular Hgb 29.5 pg (27.0-32.0); Mean Corpuscular Volume 88.9 fL (81-99); Mean Platelet Vol. 9.3 fl (6.2-12.0); Monocyte# 0.52 X10^3/uL; Monocyte% 6.1 % (0-10); NRBC Flagged by Analyzer 0 % (0-5); Neutrophil # 4.56 X10^3/uL (2.7-7.7); Neutrophil % 53.5 % (47-70); Platelet Count 354 K/mm3 (150-450); RBC Distribution Width CV 12.3 % (11.6-14.6); RBC Distribution Width SD 40.1 fl (35.1-43.9); Red Blood Count 4.31 M/mm3 (4.2-5.4); White Blood Count 8.5 K/mm3 (4.4-11.0)
[2024-04-23 16:42] LABS: Erythrocyte Sedimentation Rate 3 mm/hr (0-30)
[2024-04-23 17:59] LABS: ALB/GLOB Ratio 1.3 RATIO (0.9-2.4); AST(SGOT) 23 U/L (15-37); Alanine Aminotransfer ALT/SGPT 34 U/L (13-56); Albumin, Serum 4.3 g/dL (3.2-5.0); Alkaline Phosphatase 64 U/L (45-117); Anion Gap 5 (5-15); BUN 24 mg/dL (7-18); BUN/Creat Ratio 29.3 RATIO (10-20); CRP < 2.90 mg/L (0.0-3.0); Calcium,Total 9.3 mg/dL (8.5-10.1); Chloride 103 mmol/L (98-107); Creatinine, Serum 0.82 mg/dL (0.55-1.02); EST Glomerular Filtration Rate 79 mL/min (>60); Est Glom Filt Rate - Afr Amer 96 mL/min (>60); Free T3 3.1 pg/mL (2.18-3.98); Globulin 3.3 g/dL (2.2-4.2); Glucose 87 mg/dL (74-106); Luteinizing Hormone 32.6 mIU/mL; Potassium 4.3 mmol/L (3.5-5.1); Protein, Total 7.6 g/dL (6.4-8.2); Sodium Level 138 mmol/L (136-145); T4 Free Direct 0.83 ng/dL (0.76-1.46)
[2024-04-25 04:07] LABS: PROGESTERONE 0.2 ng/mL (.)
== END | disposition home or self-care (01) ==
LOC: MTLAB 12:40
PROVIDERS: PCP Internal Medicine; Referring Provider Internal Medicine; Visit Provider Internal Medicine
DX: R61 Generalized hyperhidrosis (principal); H92.01 Otalgia, right ear
CPT/HCPCS: 36415; 80053; 81002; 83001; 83002; 84144; 84403; 84439; 84443; 84481; 85025; 85652; 86140

== ENCOUNTER → 2025-02-23 | Outpatient (CLI) | payer OTHER, SELFPAY ==
--- NOTE | 2025-02-23 15:15 | BI_ITS ---
EXAM: SCRN MAMM (CAD)W/ADARSH BILAT DATE: 02/23/2025 CLINICAL HISTORY: F, Age 49 y/o , SCREENING FOR BREAST CANCER TECHNIQUE: Procedure Code: [id number] Modality: MG Procedure: SCRN MAMM (CAD)W/ADARSH BILAT COMPARISON: Prior exam(s) dated 02/07/2024 and 02/05/2023. FINDINGS: TISSUE DENSITY: The breasts are heterogeneously dense, which may obscure small masses. Bilateral Breast Mammographic Findings: Benign round microcalcifications are seen in both breasts. No suspicious masses, suspicious clustered microcalcifications, architectural distortion or secondary sign of malignancy is identified in either breast. Benign-appearing axillary lymph nodes are seen bilaterally. There is a radiopaque clip seen in the far posterior, retroareolar region of the left breast to shaun a post biopsy site. The biopsy was benign. Post biopsy site appears stable. BI/SCRN MAMM (CAD)W/ADARSH BILAT IMPRESSION: Benign screening mammogram OVERALL FINAL ASSESSMENT BI-RADS 2: BENIGN RECOMMENDATION: Routine annual follow-up in 1 Year Additional Recommendation none A letter with findings and recommendations will be mailed to the patient. Reading Location: [id number]
== END | disposition home or self-care (01) ==
PROVIDERS: PCP Internal Medicine; Referring Provider Nurse Practitioner Family; Visit Provider Nurse Practitioner Family
DX: Z12.31 Encounter for screening mammogram for malignant neoplasm of breast (principal)
CPT/HCPCS: 77063; 77067